=== PATIENT | male | born 1950 | race Caucasian/White ===

== ENCOUNTER 2019-07-28 09:35 | Outpatient (CLI) | payer MEDICARE, SELFPAY ==
[2019-07-28 10:00] LABS: Basophils % 0.6 %; Eosinophils # 0.1 10^3/uL (0.0-0.8); Eosinophils % 2.1 %; Hematocrit 54.9 % (42.0-52.0); Hemoglobin 17.7 g/dL (11.7-16.6); Lymphocytes # 1.5 10^3/uL (0.8-4.8); Lymphocytes % 24.3 %; Mean Corpuscular HGB Conc 32.2 g/dL (30.0-36.0); Mean Corpuscular Volume 89.9 fL (80-94); Mean Platelet Volume 9.9 fL (7.4-10.4); Monocytes # 0.4 10^3/uL (0.2-0.9); Monocytes % 6.3 %; Neutrophils # 4.1 10^3/uL (1.8-7.7); Neutrophils % 66.5 %; Nucleated Red Blood Cells % 0 %; Platelet Count 142 10^3/cmm (130-400); Red Blood Count 6.11 10^6/uL (4.1-5.3); Red Cell Distribution Width 12.4 % (12.1-15.1); White Blood Count 6.2 10^3/uL (4.0-10.0)
[2019-07-28] MEDS: sodium chloride 0.9% 250 ML 999 ML IV (12:26)
--- NOTE | 2019-07-28 13:01 | ONC CON_ITS ---
Dr. Crawford New Patient Note Patient: Landen Romero Unit #: [id number]: 1950 Dicatated By: Marco Crawford M.D.Date of Visit: Jul 28, 2019 Onc MED New Patient/Consult Referring Physician: Dr. RENATA Salter M.D. History of Present Illness: Mr. Landen Romero, is a 69-year-old gentleman with history of sleep apnea and on CPAP machine and 30+ year history of heavy smoking e.g. 2 packs per day, quit 10 years ago. Recently found to have elevated hemoglobin/hematocrit as per record received from his PMD initially CBC done on 12/23/2017 showed hemoglobin 17.2 hematocrit 51.9 with platelets 154,000 and white blood count 6.6 and the last one from 06/10/2019 showed hemoglobin 18.3 hematocrit 56.1 with white blood count 7 and platelets 162,000. Patient denies any testosterone supplements. Patient denies any shortness of breath or wheezing patient denies any headaches blurred vision double vision patient denies any itching or flushing patient denies any recent weight gain patient denies any chest pain. Patient said he used to donate blood but not in the recent past. Patient said he uses CPAP machine diligently for the last 7 -8 years and never been rechecked for setting. Past Medical History: There is no documented medical history. Past Surgical History: Mr. Romero's surgical/procedural history consists of carpal tunnel repair x5, left shoulder repair, right knee repair, and right shoulder repair. Medications: Ambien 1 Tablet (of 10 mg) Oral at bedtime Allergies: Citalopram Hydrobromide Social History: Mr. Romero is . Mr. Romero quit smoking 20 years ago but had smoked 2.0 packs/day for 33 years. He quit drinking 20 years ago. pt states he drank a quart of vodka a night. Family History: Mr. Romero's mother at age 78: pancreatic cancer. Mr. Romero's father at age 85: hypertension, and old age. Mr. Romero has 5 brothers: 4 alive, 1 . Mr. Romero's first brother's hypertension, and diabetes. Another brother's hypertension, and diabetes. He has 3 sisters: 3 alive. Review Of Symptoms: Constitutional - Appetite is good and weight has slightly decreased. No fever, chills, hot flashes, or night sweats. Energy level is fair, ENMT - No sinus congestion/drainage. No mouth sores. No sore throat or difficulty swallowing, Hematologic/Lymphatic - No abnormal bruising or bleeding, Respiratory - No shortness of breath. No cough. No pleuritic pain or hemoptysis, Cardiovascular - No angina pain. No palpitations, Gastrointestinal - No nausea or vomiting. No heartburn or acid reflux. No diarrhea or constipation. No blood in the stool or black stools, Genitourinary (M) - No dysuria or hematuria. No urinary frequency. No urgency or incontinence, Musculoskeletal - No joint or bone pain, Neurologic - No headache or dizziness. No numbness/paresthesias or other focal neurologic symptoms, Psychiatric - No anxiety or depression. No insomnia. Vital Signs: Most recent vitals are not available for this patient. Performance Status: 0 - Fully active, able to carry on all predisease activities without restrictions. (ECOG) Physical Examination: ENMT - No oral exudates, ulcers, masses, thrush or mucositis. Oropharynx clear. Tongue normal, Respiratory - poor air entry, Cardiovascular - Regular rate and rhythm of heart, Abdomen - Non-tender, non-distended, Good bowel sounds. No guarding or rebound tenderness. No pulsatile masses, Extremities - no edema. Lab/Imaging: Most recent lab results are not available for this patient. 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 Or polycythemia vera but less likely. History of sleep apnea on CPAP machine History of chronic smoking 2 packs per day for 30 years, quit 10 years ago. Plan: Discussed with patient regarding his labs from today white blood count 6.2 hemoglobin 17.7, hematocrit 54.9 normal range being 40-52 platelets 142,000 with a normal differential Clinically, patient is doing well, no obvious signs symptom due to polycythemia but patient has underlying type II diabetes and considering his age, we will consider keeping his hematocrit done on 45 to minimize any risk of CVA. In the meantime we will do following to rule out possible etiology of progressive polycythemia. We will check his pulse oximetry at rest and exertion and, erythropoietin level, chest x-ray, MARCEL 2 mutation and also suggest primary care physician to recheck CPAP machine setting to optimize sleep apnea management. The meantime we'll proceed with phlebotomy 500 mL blood replacement with 250 mL normal saline and goal is to keep hematocrit equal to or below 45. Patient was advised to maintain hydration and also take 1 aspirin a day. Return to clinic in 2 weeks with CBC Signed By: Marco Crawford M.D. <<Signature on File>>
== END 2019-07-28 09:36 | disposition home or self-care (01) ==
LOC: ONCMED 09:39
PROVIDERS: Family Provider Nurse Practitioner; PCP Nurse Practitioner; Visit Provider Internal Medicine Hematology & Oncology
DX: D75.1 Secondary polycythemia (principal); G47.33 Obstructive sleep apnea (adult) (pediatric); J98.4 Other disorders of lung; Z87.891 Personal history of nicotine dependence
CPT/HCPCS: 82668; 85025; 99195; 99204; J7050

== ENCOUNTER 2019-08-11 08:01 | Outpatient (CLI) | payer MEDICARE, SELFPAY ==
[2019-08-11 08:20] LABS: Basophils # 0.1 10^3/uL (0.0-0.1); Basophils % 0.7 %; Eosinophils # 0.1 10^3/uL (0.0-0.8); Eosinophils % 1.7 %; Hematocrit 51.5 % (42.0-52.0); Hemoglobin 16.7 g/dL (11.7-16.6); Lymphocytes # 1.9 10^3/uL (0.8-4.8); Lymphocytes % 25.2 %; Mean Corpuscular HGB Conc 32.4 g/dL (30.0-36.0); Mean Corpuscular Hemoglobin 28.9 pg (28.0-34.0); Mean Corpuscular Volume 89.3 fL (80-94); Mean Platelet Volume 9.4 fL (7.4-10.4); Monocytes # 0.6 10^3/uL (0.2-0.9); Monocytes % 7.4 %; Neutrophils % 64.6 %; Nucleated Red Blood Cells % 0 %; Platelet Count 182 10^3/cmm (130-400); Red Blood Count 5.77 10^6/uL (4.1-5.3); Red Cell Distribution Width 12.8 % (12.1-15.1); White Blood Count 7.7 10^3/uL (4.0-10.0)
--- NOTE | 2019-08-11 12:48 | ONC FU_ITS ---
Dr. Crawford follow up note Patient: Landen Romero Unit #: [id number]: 1950 Dicatated By: Marco Crawford M.D.Date of Visit:Aug 11, 2019 Onc Med Follow-up/Prog Note History of Present Illness: Mr. Landen Romero, is a 69-year-old gentleman with history of sleep apnea and on CPAP machine and 30+ year history of heavy smoking e.g. 2 packs per day, quit 10 years ago. Recently found to have elevated hemoglobin/hematocrit as per record received from his PMD initially CBC done on 12/23/2017 showed hemoglobin 17.2 hematocrit 51.9 with platelets 154,000 and white blood count 6.6 and the last one from 06/10/2019 showed hemoglobin 18.3 hematocrit 56.1 with white blood count 7 and platelets 162,000. Patient denies any testosterone supplements. Patient denies any shortness of breath or wheezing patient denies any headaches blurred vision double vision patient denies any itching or flushing patient denies any recent weight gain patient denies any chest pain. Patient said he used to donate blood but not in the recent past. JAK2 mutation was negative. Pulse ox at rest was 92% and on exertion 95%. Erythropoietin level was not done. Started on biweekly phlebotomy on 07/28/2019, goal is to keep hematocrit equal to or less than 45 Patient said he uses CPAP machine diligently for the last 7 -8 years and never been rechecked for setting. Came for follow-up, denies any specific complaints, denies any fever or chills, denies any headaches or blurred vision double vision. Patient tolerated first phlebotomy well. Medications: ALPRAZolam 1 Tablet (of 0.5 mg) Oral b.i.d., Ambien 1 Tablet (of 10 mg) Oral at bedtime, Canagliflozin 1 Tablet (of 300 mg) Oral daily, Glucophage 1 Tablet (of 850 mg) Oral b.i.d., Propranolol HCl 1 Tablet (of 40 mg) Oral daily, Sertraline HCl 1 Tablet (of 50 mg) Oral daily, Simvastatin 1 Tablet (of 40 mg) Oral daily, Tamsulosin HCl 2 Capsule (of 0.4 mg) Oral daily, traMADol HCl 1 Tablet (of 50 mg) Oral PRN Allergies: Citalopram Hydrobromide Review of Systems: Review of Systems is not available for this patient. Vital Signs: Performed on Aug 11, 2019 09:45 Height - 71.00 in Weight - 238.4 lbs (LOW) BSA - 2.27 sq.m BMI - 33.25 (HIGH) Temperature - 98.6 F Pulse - 58 /min (LOW) Respiration - 24 /min BP - 117/73 mm(hg) O2 Sat - 98 % Pain - 0 Performance Status: 0 - Fully active, able to carry on all predisease activities without restrictions. (ECOG) Physical Examination: ENMT - No oral exudates, ulcers, masses, thrush or mucositis. Oropharynx clear. Tongue normal, Respiratory - Lungs are clear to auscultation without rhonchi or wheezing, Cardiovascular - Regular rate and rhythm of heart, Abdomen - Non-tender, non-distended, Good bowel sounds. No guarding or rebound tenderness. No pulsatile masses, Extremities - no edema. 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 Or polycythemia vera but less likely.as Fabiano 2 mutation came back negative History of sleep apnea on CPAP machine History of chronic smoking 2 packs per day for 30 years, quit 10 years ago. Plan: Discussed with patient regarding his labs white blood count 7.7 hemoglobin 16.7 crit 51.5, compared to 54.9 on 07/28/2019, prior to phlebotomy, platelets 182,000 with a normal differential Clinically, patient is doing well, tolerating phlebotomies well. His hematocrit has gone down appropriately. We will continue with biweekly phlebotomy with 500 mL drawn and with 250 mL normal saline replacement to prevent hypovolemia. And goal is to keep his hemoglobin/hematocrit equal to or less than 15/45. Patient advised to continue aspirin. Lab workup done so far remained inconclusive, no evidence of polycythemia vera, as FABIANO 2 came back negative. And has history of sleep apnea for which is on CPAP machine for the last 8 years, he may have machine malfunctioning or may need resetting. Patient will discuss with PMD regarding rechecking CPAP machine settings for optimal functioning. We'll proceed with phlebotomy today and then continue biweekly while maintaining hemoglobin/hematocrit equal to or less than 15/45 He will return to clinic in 2 months with CBC. Signed By: Maroc Crawford M.D. <<Signature on File>>
== END 2019-08-11 08:02 | disposition home or self-care (01) ==
LOC: ONCMED 08:01
PROVIDERS: Family Provider Nurse Practitioner; PCP Nurse Practitioner; Visit Provider Internal Medicine Hematology & Oncology
DX: D75.1 Secondary polycythemia (principal); G47.33 Obstructive sleep apnea (adult) (pediatric); Z79.82 Long term (current) use of aspirin; Z87.891 Personal history of nicotine dependence
CPT/HCPCS: 85025; 99195; G0463

== ENCOUNTER 2019-08-25 11:51 | Outpatient (CLI) | payer MEDICARE, SELFPAY ==
[2019-08-25 12:14] LABS: Basophils # 0.1 10^3/uL (0.0-0.1); Basophils % 0.7 %; Eosinophils # 0.1 10^3/uL (0.0-0.8); Eosinophils % 1.5 %; Hematocrit 50.9 % (42.0-52.0); Hemoglobin 16.9 g/dL (11.7-16.6); Lymphocytes # 1.6 10^3/uL (0.8-4.8); Lymphocytes % 22.1 %; Mean Corpuscular HGB Conc 33.2 g/dL (30.0-36.0); Mean Corpuscular Hemoglobin 29.6 pg (28.0-34.0); Mean Corpuscular Volume 89.1 fL (80-94); Mean Platelet Volume 9.8 fL (7.4-10.4); Monocytes # 0.5 10^3/uL (0.2-0.9); Monocytes % 6.8 %; Neutrophils # 4.9 10^3/uL (1.8-7.7); Neutrophils % 68.6 %; Nucleated Red Blood Cells % 0 %; Platelet Count 156 10^3/cmm (130-400); Red Blood Count 5.71 10^6/uL (4.1-5.3); Red Cell Distribution Width 13.4 % (12.1-15.1); White Blood Count 7.1 10^3/uL (4.0-10.0)
[2019-08-25] MEDS: sodium chloride 0.9% 250 ML 999 ML IV (12:41)
== END 2019-08-25 11:52 | disposition home or self-care (01) ==
LOC: ONCMED 11:55
PROVIDERS: Family Provider Nurse Practitioner; PCP Nurse Practitioner; Visit Provider Internal Medicine Hematology & Oncology
DX: D75.1 Secondary polycythemia (principal)
CPT/HCPCS: 36415; 85025; 99195; J7050

== ENCOUNTER 2019-09-08 09:23 | Outpatient (CLI) | payer MEDICARE, SELFPAY ==
[2019-09-08 10:04] LABS: Basophils % 0.5 %; Eosinophils # 0.2 10^3/uL (0.0-0.8); Eosinophils % 2.8 %; Hematocrit 47.2 % (42.0-52.0); Hemoglobin 15.4 g/dL (11.7-16.6); Lymphocytes # 2.2 10^3/uL (0.8-4.8); Lymphocytes % 27.6 %; Mean Corpuscular HGB Conc 32.6 g/dL (30.0-36.0); Mean Corpuscular Hemoglobin 29.2 pg (28.0-34.0); Mean Corpuscular Volume 89.6 fL (80-94); Mean Platelet Volume 9.9 fL (7.4-10.4); Monocytes # 0.6 10^3/uL (0.2-0.9); Monocytes % 8.2 %; Neutrophils # 4.7 10^3/uL (1.8-7.7); Neutrophils % 60.6 %; Nucleated Red Blood Cells % 0 %; Platelet Count 171 10^3/cmm (130-400); Red Blood Count 5.27 10^6/uL (4.1-5.3); Red Cell Distribution Width 13.3 % (12.1-15.1); White Blood Count 7.8 10^3/uL (4.0-10.0)
== END 2019-09-08 09:24 | disposition home or self-care (01) ==
LOC: ONCMED 09:25
PROVIDERS: Family Provider Nurse Practitioner; PCP Nurse Practitioner; Visit Provider Internal Medicine Hematology & Oncology
DX: D75.1 Secondary polycythemia (principal)
CPT/HCPCS: 36415; 85025; 99195; 99211

== ENCOUNTER 2019-09-24 08:49 | Outpatient (CLI) | payer MEDICARE, SELFPAY ==
[2019-09-24 09:24] LABS: Basophils # 0.1 10^3/uL (0.0-0.1); Basophils % 0.9 %; Eosinophils # 0.1 10^3/uL (0.0-0.8); Eosinophils % 2.3 %; Hematocrit 46.9 % (42.0-52.0); Lymphocytes # 1.6 10^3/uL (0.8-4.8); Lymphocytes % 27.5 %; Mean Corpuscular Hemoglobin 29.5 pg (28.0-34.0); Mean Corpuscular Volume 92.3 fL (80-94); Mean Platelet Volume 9.6 fL (7.4-10.4); Monocytes # 0.5 10^3/uL (0.2-0.9); Monocytes % 8.1 %; Neutrophils # 3.5 10^3/uL (1.8-7.7); Nucleated Red Blood Cells % 0 %; Platelet Count 172 10^3/cmm (130-400); Red Blood Count 5.08 10^6/uL (4.1-5.3); Red Cell Distribution Width 13.5 % (12.1-15.1); White Blood Count 5.7 10^3/uL (4.0-10.0)
[2019-09-24] MEDS: sodium chloride 0.9% 250 ML 999 ML IV (10:01)
== END 2019-09-24 08:50 | disposition home or self-care (01) ==
LOC: ONCMED 08:51
PROVIDERS: Family Provider Nurse Practitioner; PCP Nurse Practitioner; Visit Provider Internal Medicine Hematology & Oncology
DX: D75.1 Secondary polycythemia (principal)
CPT/HCPCS: 85025; 99195; 99211; J7050

== ENCOUNTER 2019-09-28 20:00 | Outpatient (CLI) | payer MEDICARE, SELFPAY | END 2019-09-28 20:01 | disposition home or self-care (01) | LOC: SLEEP 09-29 10:48 | PROVIDERS: Family Provider Nurse Practitioner; PCP Nurse Practitioner; Visit Provider Nurse Practitioner | DX: G47.30 Sleep apnea, unspecified (principal) | CPT/HCPCS: 95810 ==

== ENCOUNTER 2019-10-06 06:55 | Outpatient (CLI) | payer MEDICARE, SELFPAY ==
[2019-10-06 12:04] LABS: Basophils # 0.1 10^3/uL (0.0-0.1); Basophils % 1.1 %; Eosinophils # 0.2 10^3/uL (0.0-0.8); Eosinophils % 3.2 %; Hematocrit 46.6 % (42.0-52.0); Hemoglobin 14.7 g/dL (11.7-16.6); Lymphocytes # 2.4 10^3/uL (0.8-4.8); Lymphocytes % 38.1 %; Mean Corpuscular HGB Conc 31.5 g/dL (30.0-36.0); Mean Corpuscular Hemoglobin 29.2 pg (28.0-34.0); Mean Corpuscular Volume 92.6 fL (80-94); Mean Platelet Volume 10.3 fL (7.4-10.4); Monocytes # 0.6 10^3/uL (0.2-0.9); Monocytes % 9.7 %; Neutrophils # 2.9 10^3/uL (1.8-7.7); Neutrophils % 47.6 %; Nucleated Red Blood Cells % 0 %; Platelet Count 158 10^3/cmm (130-400); Red Blood Count 5.03 10^6/uL (4.1-5.3); Red Cell Distribution Width 13.4 % (12.1-15.1); White Blood Count 6.2 10^3/uL (4.0-10.0)
== END 2019-10-06 06:56 | disposition home or self-care (01) ==
LOC: ONCMED 13:58
PROVIDERS: Family Provider Nurse Practitioner; PCP Nurse Practitioner; Visit Provider Internal Medicine Hematology & Oncology
DX: D75.1 Secondary polycythemia (principal)
CPT/HCPCS: 85025

== ENCOUNTER → 2019-11-01 11:15 | Outpatient (BNVA) | payer MEDICARE, SELFPAY | PROVIDERS: Family Provider Nurse Practitioner; PCP Nurse Practitioner; Visit Provider Urology | DX: N40.1 Benign prostatic hyperplasia with lower urinary tract symptoms (principal); N39.9 Disorder of urinary system, unspecified; N52.9 Male erectile dysfunction, unspecified; Z12.5 Encounter for screening for malignant neoplasm of prostate | CPT/HCPCS: 81001 ==

== ENCOUNTER 2019-11-11 14:43 | Observation (INO) | payer MEDICARE, SELFPAY ==
[2019-11-10 14:20] VITALS: BMI 32.8
[2019-11-11] VITALS (12 sets, daily range): BP systolic 106–138; BP diastolic 59–84; PULSE 55–79; RESP 15–22; TEMP 36.1–36.5; O2SAT 92–97
[2019-11-11 12:11] LABS: Glucose Point of Care 265 mg/dL (70-110)
[2019-11-11] MEDS: sodium chloride 0.9% 1,000 ML 30 ML IV (12:16)
--- NOTE | 2019-11-11 12:34 | ANES.PREANE2 ---
Pre-Anesthetic Assessment Pre-Anesthetic Assessment: Height/Weight: Height 1.8 m Weight 106.594 kg Temp Pulse Resp BP Pulse Ox 97 F L 61 18 114/80 96 11/11/19 12:10 11/11/19 12:10 11/11/19 12:10 11/11/19 12:10 11/11/19 12:10 Preop Diagnosis: Refractory BPH/obstruction Proposed Procedure: Operation Date: 11/11/19 13:00 Proposed Procedures p Transurethral Resection Of Prostate N40.1 65996(Not Applicable) - Cresencio Henson MD s Cystoscopy N39.9(Not Applicable) - Cresencio Henson MD Was Beta Kaden taken within 24 hours: Yes Last intake: Intake Last Liquid Date 11/10/19 Last Solid Date 11/10/19 Social: Social History: No alcohol and No tobacco Exam: Pre-Anes Outpt Exam: alert, oriented x 3, clear to auscultation bilaterally and regular rate & rhythm Airway: Submandibular: WNL Cervical ROM: Other (poor) MP: 2 History/ROS: No significant history except as noted Pulmonary: Pulmonary: Sleep apnea CV/HEM: CV/HEM: HTN : : Chronic renal Insufficiency Hepatic: Hepatic: None reported GI: GI: None reported Metabolic: Metabolic: DM Musc/skel: Musc/skel: OA/DJD Anesthetic Plan: ASA status: 3 Anesthesia: Anesthesia Evaluation and General Risk of > 500 ml blood loss (7ml/kg in children): Yes, adequate IV access and fluids planned Meds/Allergies Current Medications: Current Medications Generic Name Dose Route Start Last Admin Trade Name Freq PRN Reason Stop Dose Admin Sodium Chloride 1,000 mls @ 30 ml s/hr 11/11/19 12:00 11/11/19 12:16 Sodium Chloride 0.9% IV 11/12/19 11:59 30 mls/hr .Q24H MERRY Administration PFSH Anesthesia PFSH: Medical History (Updated 11/11/19 @ 12:35 by Anshul Serrano MD) BPH NOS w ur obs/LUTS Diabetes Erectile dysfunction Major depression Osteoarthritis Sleep apnea Social History Smoking and tobacco status: former smoker Alcohol intake: never Marital status: Current occupational status: retired History of recent travel: No Data Anesthesia Other Labs: Laboratory Results - last 48 hr 11/11/19 12:08 POC Glucose 265 Cardiac Studies: No Data to Display
--- NOTE | 2019-11-11 12:38 | W.PM.OPSUD ---
Surgery/Procedure H&P Update DATE OF PROCEDURE: November 11, 2019 DATE H&P PERFORMED: 11/01/19 H&P UPDATE INFORMATION: I have reviewed H&P completed within last 30 days, I have examined patient prior to procedure and No changes to prior documentation CHANGES TO PREVIOUS DOCUMENTATION: Reports no blood thinners PREOP DIAGNOSIS: Refractory BPH/obstruction PLANNED PROCEDURE: Operation Date: 11/11/19 13:00 Proposed Procedures p Transurethral Resection Of Prostate N40.1 50975(Not Applicable) - Cresencio Henson MD s Cystoscopy N39.9(Not Applicable) - Cresencio Henson MD
--- NOTE | 2019-11-11 12:42 | PM.OP ---
Operative Report Date of procedure: November 11, 2019 Pre-op Diagnosis: Refractory BPH/obstruction Post-op diagnosis: same Procedure Done: Transurethral resection/vaporization of the prostateCystoscopy, Pathology: Prostate chips Surgeon: suzan Anesthesia: General Complications: None Findings: Trilobar enlargement of the prostate. Wide open prostatic fossa at the completion of the resection. Condition: stable Disposition: PACU Brief History: Landen is a 69-year-old white male with progressive bladder outlet obstructive symptoms secondary to BPH/obstruction initially had good response to dual medical therapy but over time symptoms progressed. Bladder on cystoscopy showed severe obstructive changes including trabeculation and cellule formation. Prostate demonstrated trilobar enlargement of the prostate. Because of his progressive symptoms he has elected to proceed with TURP/TUVP in hopes of significant improvement in baseline voiding. Procedure: After routine preoperative evaluation examination and obtaining of informed consent he was taken to the operating suite on 11/11/2019 where general anesthesia was administered without difficulty after appropriate timeout was performed, SCDs confirmed to be functioning, preoperative antibiotics administered, beta-alton protocol confirmed. on prepped and draped in the usual sterile fashion in dorsolithotomy position paying careful attention to avoiding pressure points. 21 Colombian cystoscope with 30 degree lens was introduced into the urethral meatus and advanced into the bladder under videoscopy. Bladder was systematically examined with findings as above. No other significant pathology identified. The urethra was calibrated with Vani sounds and easily accommodated 30 Colombian. 2% lidocaine jelly was instilled into the urethra then a well-lubricated 25 Colombian continuous flow resectoscope sheath with visual obturator was advanced into the bladder under videoscopy. The gyrus bipolar system with supersect and button probes were utilized initially with the supersect to trim the median lobe down to the circular fibers of the bladder neck. Resection was then directed to the Left lateral lobe from the 12 o'clock position to the 5 o'clock position from the bladder neck out to but not distal to the verumontanum. Similar resection on the right prostatic lobe. The remaining tissue on the floor the prostate was then carefully resected. Combination of resection and vaporization was conducted throughout this utilizing both the supersect and the button probe as indicated. There remained a small amount of tissue at the apex of the prostate was carefully trimmed away paying careful attention to avoiding resection distal to the verumontanum. The right ureteral orifices were confirmed to be away from the resection site throughout the procedure. All chips were evacuated from the bladder with an [employer] evacuator. Sculpting was then conducted on the prostatic fossa to complete hemostasis as well as functional opening. At the completion of the resection the chips were confirmed to be out of the bladder, hemostasis was visually confirmed, and tissue distal to the verumontanum as well as the ureteral orifices were undisturbed. Bladder drained with a 22 Colombian three-way Bella catheter with 30 cc placed in the balloon and a light continuous bladder irrigation was initiated. Efflux remained clear. Awakened in the operating room and returned to the recovery room in stable condition.
[2019-11-11 12:55] LABS: Basophils # 0.1 10^3/uL (0.0-0.1); Basophils % 0.8 %; Eosinophils # 0.1 10^3/uL (0.0-0.8); Eosinophils % 2.4 %; Hematocrit 53.4 % (42.0-52.0); Lymphocytes # 1.8 10^3/uL (0.8-4.8); Mean Corpuscular HGB Conc 31.8 g/dL (30.0-36.0); Mean Corpuscular Hemoglobin 28.2 pg (28.0-34.0); Mean Corpuscular Volume 88.6 fL (80-94); Mean Platelet Volume 10.1 fL (7.4-10.4); Monocytes # 0.5 10^3/uL (0.2-0.9); Monocytes % 8.8 %; Neutrophils # 3.4 10^3/uL (1.8-7.7); Neutrophils % 57.8 %; Nucleated Red Blood Cells % 0 %; Platelet Count 168 10^3/cmm (130-400); Red Blood Count 6.03 10^6/uL (4.1-5.3); Red Cell Distribution Width 13.1 % (12.1-15.1); White Blood Count 5.9 10^3/uL (4.0-10.0)
[2019-11-11] MEDS: levofloxacin-dextrose 5 % 500 MG/100 ML PREMIX 100 MG IV (13:05)
[2019-11-11] MEDS: lidocaine 2% Urojet 20 mL TOPICAL (13:07)
[2019-11-11 13:15] LABS: Alanine Aminotransferase 15 U/L (0-41); Albumin Level 4.5 g/dL (3.5-5.2); Alkaline Phosphatase 80 IU/L (40-130); Anion Gap 19.7 (5-19); Aspartate Amino Transferase 15 U/L (0-40); Blood Urea Nitrogen 28 mg/dL (8-23); Calcium 9.3 mg/dL (8.5-10.5); Carbon Dioxide 20 mmol/L (22-29); Chloride 101 mmol/L (98-107); Globulin 3.6 g/dL (1.3-4.6); Glomerular Filtration Rate 46.3 mL/min (90-130); Glucose 276 mg/dL (65-115); Osmolality Calculated 289 mOsm/kg (285-295); Potassium 4.7 mmol/L (3.5-5.1); Sodium 136 mmol/L (136-145); Total Bilirubin 0.5 mg/dL (0.15-1.2); Total Protein 8.1 g/dL (6.6-8.7)
[2019-11-11] MEDS: sodium chlor 0.45% +KCl 20 mEq 20 MEQ/1,000 ML BAG 75 MEQ IV (16:00)
[2019-11-11 17:06] LABS: Glucose Point of Care 206 mg/dL (70-110)
[2019-11-11] MEDS: metformin 850 mg Tablet PO (17:26)
--- NOTE | 2019-11-11 18:23 | PC.NURSE ---
CBI running with a barely drip. Urine pink with very small clots. 1200 intake with 150 output in urine.
--- NOTE | 2019-11-11 20:09 | PC.NURSE ---
1300 output from cbi- clear pink turned up slightly and turned clear.
[2019-11-11 20:57] LABS: Glucose Point of Care 302 mg/dL (70-110)
--- NOTE | 2019-11-11 21:01 | PC.NURSE ---
hung 2 new bags of cbi slowed rate running slow clear light yellow output
[2019-11-11] MEDS: ALPRAZolam 0.5 mg Tablet PO (22:18)
--- NOTE | 2019-11-11 22:22 | PC.NURSE ---
salomon emptied with light pink output
[2019-11-12] VITALS (7 sets, daily range): BP systolic 105–124; BP diastolic 58–73; PULSE 63–70; RESP 18–20; TEMP 36.6–37.1; O2SAT 92–97
--- NOTE | 2019-11-12 01:28 | PC.NURSE ---
salomon emptied with 900 ml light pink output no clots
[2019-11-12 02:21] LABS: Basophils # 0.1 10^3/uL (0.0-0.1); Basophils % 0.6 %; Eosinophils # 0.2 10^3/uL (0.0-0.8); Eosinophils % 2.1 %; Hemoglobin 13.7 g/dL (11.7-16.6); Lymphocytes # 2.2 10^3/uL (0.8-4.8); Lymphocytes % 26.6 %; Mean Corpuscular HGB Conc 31.1 g/dL (30.0-36.0); Mean Corpuscular Volume 89.8 fL (80-94); Mean Platelet Volume 10.1 fL (7.4-10.4); Monocytes # 0.7 10^3/uL (0.2-0.9); Monocytes % 8.7 %; Neutrophils # 5.1 10^3/uL (1.8-7.7); Neutrophils % 61.8 %; Nucleated Red Blood Cells % 0 %; Platelet Count 137 10^3/cmm (130-400); Red Cell Distribution Width 13.1 % (12.1-15.1); White Blood Count 8.2 10^3/uL (4.0-10.0)
[2019-11-12 02:30] LABS: Blood Urea Nitrogen 25 mg/dL (8-23); Carbon Dioxide 22 mmol/L (22-29); Chloride 104 mmol/L (98-107); Glomerular Filtration Rate 42.9 mL/min (90-130); Glucose 151 mg/dL (65-115); Osmolality Calculated 284 mOsm/kg (285-295); Sodium 137 mmol/L (136-145)
[2019-11-12] MEDS: sodium chlor 0.45% +KCl 20 mEq 20 MEQ/1,000 ML BAG 75 MEQ IV (05:01)
[2019-11-12 06:51] LABS: Glucose Point of Care 187 mg/dL (70-110)
[2019-11-12] MEDS: sertraline 50 mg Tablet PO (08:11)
[2019-11-12] MEDS: finasteride 5 mg Tablet PO (08:11)
[2019-11-12] MEDS: tamsulosin 0.4 mg Capsule PO (08:11)
[2019-11-12] MEDS: metformin 850 mg Tablet PO (08:11)
[2019-11-12] MEDS: propranolol 40 mg Tablet PO (08:11)
[2019-11-12] MEDS: cetirizine 10 mg Tablet PO (08:11)
[2019-11-12] MEDS: losartan 50 mg Tablet 25 MG PO (08:11)
[2019-11-12] MEDS: atorvastatin 40 mg Tablet 20 MG PO (08:11)
--- NOTE | 2019-11-12 08:21 | PC.NURSE ---
salomon catheter discontinued, patient educated on 6 bottle void and to let nurse know after he has voided.
--- NOTE | 2019-11-12 10:11 | PC.CHAP ---
Pastoral Care Encounter/Spiritual Assessment Type of Contact [] Declined director of student life visit [] Patient/Family/Request visit [] Outpatient visit [] Follow-up visit [] Physician referral [] Code/Alert [x] Routine visit [] Staff referral [] Actively dying [] Patient sleeping [] Family support [] [] Out of room [] Palliative care [] [] Receiving care in room [] Pre-surgical visit [] Trauma [] Long length of stay [] ICU visit [] Other: Relational/Emotional Strength [] Patient feels connected with others/family/visitors/staff [] Distress [] Loneliness/isolation [] Abandonment Spirituality of Patient [] Person of Dyan [] Attends Scientologist of their Dyan [] Believes in Prayer [] Reads Bible or Tenriism materials [] There are Spiritual issues to be addressed Wood Lathe Operator Interventions [x] Prayer [] Active listening [] Non-anxious presence [] Spiritual/emotional support [] Crisis/trauma care [] Spiritual counseling [] Bereavement support [] Provided bereavement packet [] Provided Bible/devotional materials [] Provided toy/stuffed animal, coloring book to patient or family member [] Provided Communion [] Anointing/Hilbert [] Salvation [x] Completed spiritual assessment [] Other: Impact on Illness or Injury [] Angry [] Fearful [] Anxious [] Often cries [] Exhaustion [] Unable to work [] Unable to attend restorationist [] Unable to walk/stand [] Unable to read [] Unable to drive [] Unable to eat/drink [] Unable to sleep [] Unable to be with family [] Patient intubated [] Other: Summary Patient resting well. No needs at this point. Time spent with patient 5 min
[2019-11-12 10:59] LABS: Glucose Point of Care 318 mg/dL (70-110)
--- NOTE | 2019-11-12 11:02 | PC.NURSE ---
Salomon discontinued per dr Henson's order, pt tolerated well. pt has voided 3 times after salomon removal, around 200mL each time. PVR showed 590 in bladder, however there had been some concern whether the bladder scanner had been working appropriately. Patient does not feel pressure or does not feel like he needs to void, his bladder does not feel distended. Dr. Henson notified of concerns, no new orders at this time.
--- NOTE | 2019-11-12 12:49 | PC.NURSE ---
patient completed 6 bottle void, urine started out dark alec, cleared up to clear yellow. patient voiding around 300mL each time. states that he feels well. Dr. Henson notified of patient status.
--- NOTE | 2019-11-12 13:58 | P.DS_ITS ---
Discharge Providers Date of Admission: 11/11/19 14:43 Date of Discharge: November 12, 2019 Attending Provider at Admission: Cresencio Henson MD Attending Provider at Discharge: Cresencio Henson MD Primary Care Provider: Aylin Burns APN Diagnoses at Discharge Discharge Diagnosis (1) BPH NOS w ur obs/LUTS: Status: Acute Reason for Visit Reason for Visit: Reason For Visit: PROSTATE Hospital Course Hospital Course: He was admitted on the day of the procedure which went well. At the completion of the procedure his prostatic fossa was wide open. Hemostasis was great. Maintained on Bella catheter until postoperative day #1. Urine remained clear i n the Bella catheter was removed with spontaneous voiding and clearing of urine. His last void was >350 cc and he felt empty. Discharge on the afternoon of postoperative day 1 in stable condition. Physical Exam Const: COMMON NORMALS: no apparent distress, alert and well nourished GENERAL APPEARANCE: well kempt and well developed ORIENTATION/CONSCIOUSNESS: not confused Resp: COMMON NORMALS: normal respiratory effort EFFORT & INSPECTION: No labored and No actively coughing Neuro: COMMON NORMALS: no focal motor deficits SENSORIUM/ORIENTATION: Yes alert Psych: COMMON NORMALS: mental status grossly normal APPEARANCE: Yes grossly normal and Yes well kempt ATTITUDE: Yes calm and Yes engaged Urinary Catheter Management^: 3-way Urethral CBI: Cath Placed During This Visit: yes, but has since been removed by the nurse Reason for Continuing Indwelling Catheter: Perioperative Use in Selected Surgeries Urinary Catheter Date of Insertion: 11/11/19 Urinary Catheter Time of Insertion: 14:16 Date Urinary Catheter Removed: 11/12/19 Time Urinary Catheter Discontinued: 08:15 Discharge Data Data Completed and Pending: Pending at discharge Category Date Time Status Pathology: Surgic al [PTH] Routine Pth 11/11/19 14:25 Received Labs from last 24 hours 11/12/19 11/12/19 11/12/19 10:38 06:37 02:01 WBC RBC Hgb Hct MCV MCH MCHC RDW Plt Count MPV Neut % (Auto) Lymph % (Auto) [facility] % (Auto) Eos % (Auto) Baso % (Auto) Neut # (Auto) Lymph # (Auto) [facility] # (Auto) Eos # (Auto) Baso # (Auto) Nucleated RBC % (a uto) Nucleated RBCs # Sodium 137 Potassium 4.0 Chloride 104 Carbon Dioxide 22 Anion Gap 15.0 BUN 25 H Creatinine 1.6 H GFR Calculation 42.9 L Glucose 151 H POC Glucose 318 187 Calculated Osmolal ity 284 L Calcium 8.0 L 11/12/19 11/11/19 11/11/19 02:01 20:51 16:55 WBC 8.2 RBC 4.90 Hgb 13.7 Hct 44.0 MCV 89.8 MCH 28.0 MCHC 31.1 RDW 13.1 Plt Count 137 MPV 10.1 Neut % (Auto) 61.8 Lymph % (Auto) 26.6 [facility] % (Auto) 8.7 Eos % (Auto) 2.1 Baso % (Auto) 0.6 Neut # (Auto) 5.1 Lymph # (Auto) 2.2 [facility] # (Auto) 0.7 Eos # (Auto) 0.2 Baso # (Auto) 0.1 Nucleated RBC % (a uto) 0 Nucleated RBCs # 0.0 Sodium Potassium Chloride Carbon Dioxide Anion Gap BUN Creatinine GFR Calculation Glucose POC Glucose 302 206 Calculated Osmolal ity Calcium Vitals: Last Vital Signs Temp 97.9 F 11/12/19 11:13 Pulse 68 11/12/19 11:13 Resp 18 11/12/19 11:13 BP 105/63 11/12/19 11:13 Pulse Ox 93 11/12/19 11:13 Discharge Plan Discharge Patient Disposition: Home, Self-Care Condition: Stable Prescriptions: Continued atorvastatin [Lipitor] 10 mg tablet 10 mg PO DAILY RF: 0 metformin 850 mg tablet 850 mg PO BID RF: 0 valsartan 80 mg tablet 80 mg PO DAILY RF: 0 tramadol 50 mg tablet 50 mg PO BID PRN (Reason: Anxiety) RF: 0 alprazolam 0.5 mg tablet 0.5 mg PO .prn RF: 0 propranolol 40 mg tablet 40 mg PO DAILY RF: 0 tamsulosin 0.4 mg capsule 0.4 mg PO DAILY RF: 0 zolpidem 10 mg tablet 10 mg PO .prn RF: 0 sertraline 50 mg tablet 50 mg PO DAILY RF: 0 finasteride 5 mg tablet 5 mg PO DAILY RF: 0 cetirizine 10 mg capsule 10 mg PO .prn RF: 0 Invokana 300 mg tablet 300 mg PO DAILY RF: 0 Held aspirin 325 mg tablet 325 mg PO DAILY RF: 0 Hold Instructions: Resume on 11/19/19. Discharge Orders: Discharge Order (Routine); Ordered 11/12/19 Ordered By: Cresencio Henson Referrals: Cresencio Henson MD [Physician] - 1 month (pvr, aua) Discharge Diet: Usual diet Discharge Activity: Limit activity as instructed Activity Restrictions/Additional Instructions: 1. Avoid lifting >10 pounds for 2 to 3 weeks. 2. Call for difficulty voiding 3. It is normal to see blood in your urine off and on for several weeks. That may clear for a while and then start up. Drink a lot of fluid if you see that. 4. We will follow-up in about a month for pathology report check. Discharge Attestations Time Spent in Discharge Care*: less than 30 min Quality Metrics Clinical Quality Measures During this hospital stay, did patient experience: None Coding Level of Care Code Acute Cyber Workforce Developer And Manager for g Fwd Exam Expanded Problem Focused Diagnoses BPH NOS w ur obs/LUTS N40.1
== END 2019-11-12 15:19 | disposition home or self-care (01) ==
LOC: MEDSURG 14:43
PROVIDERS: Admitting Provider Urology; PCP Nurse Practitioner; Visit Provider Urology
PROC: 0VT08ZZ Resection of Prostate, Via Natural or Artificial Opening Endoscopic (ICD-10-PCS; CPT 52601; principal; 2019-11-11 13:00)
PROC: 0TJB8ZZ Inspection of Bladder, Via Natural or Artificial Opening Endoscopic (ICD-10-PCS; CPT 52000; 2019-11-11 13:00)
DX: N40.1 Benign prostatic hyperplasia with lower urinary tract symptoms (principal); N13.8 Other obstructive and reflux uropathy; G47.30 Sleep apnea, unspecified; I10 Essential (primary) hypertension; E11.9 Type 2 diabetes mellitus without complications; M19.90 Unspecified osteoarthritis, unspecified site; Z87.891 Personal history of nicotine dependence
CPT/HCPCS: 52601; 12345; 36415; 36416; 80048; 80053; 82962; 85025; 88305; 96361; 96365; G0378; J1885; J1956; J2001; J2405; J2704; J2710; J3010; J3490; J7030

== ENCOUNTER → 2019-12-13 08:19 | Outpatient (BNVA) | payer MEDICARE, SELFPAY | PROVIDERS: PCP Nurse Practitioner; Visit Provider Urology | DX: N40.1 Benign prostatic hyperplasia with lower urinary tract symptoms (principal); N52.1 Erectile dysfunction due to diseases classified elsewhere | CPT/HCPCS: 81001 ==

== ENCOUNTER 2019-12-23 11:04 | Outpatient (CLI) | payer MEDICARE, SELFPAY ==
[2019-12-23 11:27] LABS: Basophils # 0.1 10^3/uL (0.0-0.1); Basophils % 1.2 %; Eosinophils # 0.2 10^3/uL (0.0-0.8); Eosinophils % 3.3 %; Hematocrit 53.1 % (42.0-52.0); Hemoglobin 16.8 g/dL (11.7-16.6); Lymphocytes # 1.6 10^3/uL (0.8-4.8); Lymphocytes % 25.3 %; Mean Corpuscular HGB Conc 31.6 g/dL (30.0-36.0); Mean Corpuscular Volume 88.5 fL (80-94); Mean Platelet Volume 9.4 fL (7.4-10.4); Monocytes # 0.4 10^3/uL (0.2-0.9); Monocytes % 6.4 %; Neutrophils # 4.1 10^3/uL (1.8-7.7); Neutrophils % 63.5 %; Nucleated Red Blood Cells % 0 %; Platelet Count 154 10^3/cmm (130-400); Red Cell Distribution Width 14.4 % (12.1-15.1); White Blood Count 6.4 10^3/uL (4.0-10.0)
[2019-12-23] MEDS: sodium chloride 0.9% 250 ML IV (13:25)
--- NOTE | 2019-12-23 14:29 | ONC FU_ITS ---
Dr. Crawford follow up note Patient: Landen Romero Unit #: [id number]: 1950 Dicatated By: Marco Crawford M.D.Date of Visit:Dec 23, 2019 Onc Med Follow-up/Prog Note History of Present Illness: Mr. Landen Romero, is a 69-year-old gentleman with history of sleep apnea and on CPAP machine and 30+ year history of heavy smoking e.g. 2 packs per day, quit 10 years ago. Recently found to have elevated hemoglobin/hematocrit as per record received from his PMD initially CBC done on 12/23/2017 showed hemoglobin 17.2 hematocrit 51.9 with platelets 154,000 and white blood count 6.6 and the last one from 06/10/2019 showed hemoglobin 18.3 hematocrit 56.1 with white blood count 7 and platelets 162,000. Patient denies any testosterone supplements. Patient denies any shortness of breath or wheezing patient denies any headaches blurred vision double vision patient denies any itching or flushing patient denies any recent weight gain patient denies any chest pain. Patient said he used to donate blood but not in the recent past. JAK2 mutation was negative. Pulse ox at rest was 92% and on exertion 95%. Erythropoietin level was not done. Started on biweekly phlebotomy on 07/28/2019, goal is to keep hematocrit equal to or less than 45 Patient said he uses CPAP machine diligently for the last 7 -8 years and never been rechecked for setting. Came for follow-up, denies any specific complaints, no headaches no blurring or double vision, no nausea or vomiting, no fever or chills, patient lost follow-up initially due to coronavirus and then 'just happened' Medications: ALPRAZolam 1 Tablet (of 0.5 mg) Oral b.i.d., Ambien 1 Tablet (of 10 mg) Oral at bedtime, Canagliflozin 1 Tablet (of 300 mg) Oral daily, glipiZIDE 1 Tablet (of 5 mg) Oral daily, Glucophage 1 Tablet (of 850 mg) Oral b.i.d., Propranolol HCl 1 Tablet (of 40 mg) Oral daily, Sertraline HCl 1 Tablet (of 50 mg) Oral daily, Simvastatin 1 Tablet (of 40 mg) Oral daily, traMADol HCl 1 Tablet (of 50 mg) Oral PRN Allergies: Citalopram Hydrobromide Review of Systems: Review of Systems is not available for this patient. Vital Signs: Performed on Dec 23, 2019 12:42 Height - 71.00 in Weight - 239.4 lbs (HIGH) BSA - 2.28 sq.m BMI - 33.39 (HIGH) Temperature - 96.3 F (LOW) Pulse - 63 /min Respiration - 24 /min BP - 119/63 mm(hg) O2 Sat - 98 % Pain - 0 Performance Status: 0 - Fully active, able to carry on all predisease activities without restrictions. (ECOG) Physical Examination: ENMT - No mouth sores, no thrush, no jaundice, Respiratory - Lungs are clear, Cardiovascular - Regular rate and rhythm of heart, Abdomen - Soft, bowel sounds present, Extremities - No visible edema or rash. 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 Or polycythemia vera but less likely.as Fabiano 2 mutation came back negative History of sleep apnea on CPAP machine History of chronic smoking 2 packs per day for 30 years, quit 10 years ago. Plan: Discussed with patient regarding his labs white blood count 6.4 hemoglobin 16.8 crit 53.1 platelets 154,000 Clinically, patient is doing reasonably well but now with progressive polycythemia, earlier, patient tolerated phlebotomies well with good results but due to coronavirus, he lost follow-up until came to clinic today. At this point we will proceed with phlebotomy with a 500 cc blood and replacement with a 250 cc normal saline and then continue every 2 weeks until hematocrit is less than 45. Patient was also advised to continue with baby aspirin and maintain good hydration Return to clinic in 1 month with CBC Signed By: Marco Crawford M.D. <<Signature on File>>
== END 2019-12-23 11:05 | disposition home or self-care (01) ==
LOC: ONCMED 11:05
PROVIDERS: PCP Nurse Practitioner; Visit Provider Internal Medicine Hematology & Oncology
DX: D75.1 Secondary polycythemia (principal); G47.33 Obstructive sleep apnea (adult) (pediatric); Z87.891 Personal history of nicotine dependence; Z79.82 Long term (current) use of aspirin
CPT/HCPCS: 85025; 99195; 99214; J7050

== ENCOUNTER 2020-01-20 08:41 | Outpatient (CLI) | payer MEDICARE, SELFPAY ==
[2020-01-20 09:03] LABS: Basophils # 0.1 10^3/uL (0.0-0.1); Basophils % 0.5 %; Eosinophils # 0.4 10^3/uL (0.0-0.8); Eosinophils % 3.9 %; Hemoglobin 15.8 g/dL (11.7-16.6); Lymphocytes # 2.3 10^3/uL (0.8-4.8); Lymphocytes % 25.2 %; Mean Corpuscular HGB Conc 31.6 g/dL (30.0-36.0); Mean Corpuscular Hemoglobin 28.4 pg (28.0-34.0); Mean Corpuscular Volume 89.9 fL (80-94); Mean Platelet Volume 9.9 fL (7.4-10.4); Monocytes # 0.7 10^3/uL (0.2-0.9); Monocytes % 7.3 %; Neutrophils # 5.73 10^3/uL (1.8-7.7); Neutrophils % 62.7 %; Nucleated Red Blood Cells % 0 %; Platelet Count 166 10^3/cmm (130-400); Red Blood Count 5.56 10^6/uL (4.1-5.3); Red Cell Distribution Width 15.5 % (12.1-15.1); White Blood Count 9.2 10^3/uL (4.0-10.0)
--- NOTE | 2020-01-20 10:51 | ONC FU_ITS ---
Dr. Crawford follow up note Patient: Landen Romero Unit #: [id number]: 1950 Dicatated By: Marco Crawford M.D.Date of Visit:Jan 20, 2020 Onc Med Follow-up/Prog Note History of Present Illness: Mr. Landen Romero, is a 69-year-old gentleman with history of sleep apnea and on CPAP machine and 30+ year history of heavy smoking e.g. 2 packs per day, quit 10 years ago. Recently found to have elevated hemoglobin/hematocrit as per record received from his PMD initially CBC done on 12/23/2017 showed hemoglobin 17.2 hematocrit 51.9 with platelets 154,000 and white blood count 6.6 and the last one from 06/10/2019 showed hemoglobin 18.3 hematocrit 56.1 with white blood count 7 and platelets 162,000. Patient denies any testosterone supplements. Patient denies any shortness of breath or wheezing patient denies any headaches blurred vision double vision patient denies any itching or flushing patient denies any recent weight gain patient denies any chest pain. Patient said he used to donate blood but not in the recent past. JAK2 mutation was negative. Pulse ox at rest was 92% and on exertion 95%. Erythropoietin level was not done. Started on biweekly phlebotomy on 07/28/2019, goal is to keep hematocrit between 50-55 as long as not symptomatic Patient said he uses CPAP machine diligently for the last 7 -8 years and never been rechecked for setting. Came for follow-up, denies any specific complaints, no fever chills, no nausea or vomiting no diarrhea constipation no headaches no blurred vision or double vision no chest pain no chest tightness Medications: ALPRAZolam 1 Tablet (of 0.5 mg) Oral b.i.d., Ambien 1 Tablet (of 10 mg) Oral at bedtime, Canagliflozin 1 Tablet (of 300 mg) Oral daily, glipiZIDE 1 Tablet (of 5 mg) Oral daily, Glucophage 1 Tablet (of 850 mg) Oral b.i.d., Propranolol HCl 1 Tablet (of 40 mg) Oral daily, Sertraline HCl 1 Tablet (of 50 mg) Oral daily, Simvastatin 1 Tablet (of 40 mg) Oral daily, traMADol HCl 1 Tablet (of 50 mg) Oral PRN Allergies: Citalopram Hydrobromide Review of Systems: Constitutional - Appetite is good and weight is stable. No fever, chills, hot flashes, or night sweats. Energy level is fair, ENMT - No sinus congestion/drainage. No mouth sores. No sore throat or difficulty swallowing, Hematologic/Lymphatic - No abnormal bruising or bleeding, Respiratory - No shortness of breath. No cough. No pleuritic pain or hemoptysis, Cardiovascular - No angina pain. No palpitations, Gastrointestinal - No nausea or vomiting. No heartburn or acid reflux. No diarrhea or constipation. No blood in the stool or black stools, Genitourinary (M) - No dysuria or hematuria. No urinary frequency. No urgency or incontinence, Musculoskeletal - No joint or bone pain, Neurologic - No headache or dizziness. No numbness/paresthesias or other focal neurologic symptoms, Psychiatric - No anxiety or depression. No insomnia. Vital Signs: Performed on Jan 20, 2020 10:21 Height - 71.00 in Weight - 245.2 lbs (HIGH) BSA - 2.30 sq.m BMI - 34.20 (HIGH) Temperature - 97.9 F (LOW) Pulse - 62 /min Respiration - 20 /min BP - 90/57 mm(hg) O2 Sat - 95 % (LOW) Pain - 0 Performance Status: 0 - Fully active, able to carry on all predisease activities without restrictions. (ECOG) Physical Examination: ENMT - No mouth sores,, Respiratory - Lungs are clear, Cardiovascular - Regular rate and rhythm of heart, Abdomen - Soft, bowel sounds present, Extremities - No visible edema. 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 Or polycythemia vera but less likely.as Fabiano 2 mutation came back negative History of sleep apnea on CPAP machine History of chronic smoking 2 packs per day for 30 years, quit 10 years ago. Plan: Discussed with patient regarding his labs white blood count 9.2 hemoglobin 15.8 crit 50 platelets 166,000 Clinically, patient is doing well with no new signs symptom, tolerating phlebotomy well, his hematocrits is around 50, guidelines regarding reactive polycythemia management were discussed again as patient has no signs symptom, we will keep hematocrit between 50-55 as long as he is not symptomatic in the meantime he will continue with aspirin and maintain good hydration. Turn to clinic in 1 month with CBC Signed By: Marco Crawford M.D. <<Signature on File>>
== END 2020-01-20 08:42 | disposition home or self-care (01) ==
LOC: ONCMED 08:41
PROVIDERS: PCP Nurse Practitioner; Visit Provider Internal Medicine Hematology & Oncology
DX: D75.1 Secondary polycythemia (principal); G47.33 Obstructive sleep apnea (adult) (pediatric); Z87.891 Personal history of nicotine dependence
CPT/HCPCS: 36415; 85025; G0463

== ENCOUNTER 2020-02-03 08:22 | Outpatient (CLI) | payer MEDICARE, SELFPAY ==
[2020-02-03 09:06] LABS: Basophils # 0.1 10^3/uL (0.0-0.1); Basophils % 0.7 %; Eosinophils # 0.3 10^3/uL (0.0-0.8); Hematocrit 52.5 % (42.0-52.0); Hemoglobin 16.5 g/dL (11.7-16.6); Lymphocytes # 1.9 10^3/uL (0.8-4.8); Lymphocytes % 21.2 %; Mean Corpuscular HGB Conc 31.4 g/dL (30.0-36.0); Mean Corpuscular Hemoglobin 27.9 pg (28.0-34.0); Mean Corpuscular Volume 88.8 fL (80-94); Monocytes # 0.8 10^3/uL (0.2-0.9); Monocytes % 9.3 %; Neutrophils # 5.81 10^3/uL (1.8-7.7); Neutrophils % 65.6 %; Nucleated Red Blood Cells % 0 %; Platelet Count 163 10^3/cmm (130-400); Red Blood Count 5.91 10^6/uL (4.1-5.3); Red Cell Distribution Width 15.3 % (12.1-15.1); White Blood Count 8.9 10^3/uL (4.0-10.0)
== END 2020-02-03 08:23 | disposition home or self-care (01) ==
LOC: ONCMED 08:26
PROVIDERS: PCP Nurse Practitioner; Visit Provider Internal Medicine Hematology & Oncology
DX: D45 Polycythemia vera (principal); E11.9 Type 2 diabetes mellitus without complications
CPT/HCPCS: 85025; 99195

== ENCOUNTER 2020-02-17 08:26 | Outpatient (CLI) | payer MEDICARE, SELFPAY ==
[2020-02-17 09:07] LABS: Basophils # 0.1 10^3/uL (0.0-0.1); Eosinophils # 0.3 10^3/uL (0.0-0.8); Eosinophils % 3.9 %; Hematocrit 47.7 % (42.0-52.0); Hemoglobin 14.8 g/dL (11.7-16.6); Lymphocytes % 27.7 %; Mean Corpuscular Hemoglobin 27.8 pg (28.0-34.0); Mean Corpuscular Volume 89.7 fL (80-94); Mean Platelet Volume 9.9 fL (7.4-10.4); Monocytes # 0.5 10^3/uL (0.2-0.9); Neutrophils # 4.36 10^3/uL (1.8-7.7); Nucleated Red Blood Cells % 0 %; Platelet Count 182 10^3/cmm (130-400); Red Blood Count 5.32 10^6/uL (4.1-5.3); Red Cell Distribution Width 14.9 % (12.1-15.1); White Blood Count 7.3 10^3/uL (4.0-10.0)
--- NOTE | 2020-02-17 11:30 | ONC FU_ITS ---
Dr. Crawford follow up note Patient: Landen Romero Unit #: [id number]: 1950 Dicatated By: Marco Crawford M.D.Date of Visit:Feb 17, 2020 Onc Med Follow-up/Prog Note History of Present Illness: Mr. Landen Romero, is a 70-year-old gentleman with history of sleep apnea and on CPAP machine and 30+ year history of heavy smoking e.g. 2 packs per day, quit 10 years ago. Recently found to have elevated hemoglobin/hematocrit as per record received from his PMD initially CBC done on 12/23/2017 showed hemoglobin 17.2 hematocrit 51.9 with platelets 154,000 and white blood count 6.6 and the last one from 06/10/2019 showed hemoglobin 18.3 hematocrit 56.1 with white blood count 7 and platelets 162,000. Patient denies any testosterone supplements. Patient denies any shortness of breath or wheezing patient denies any headaches blurred vision double vision patient denies any itching or flushing patient denies any recent weight gain patient denies any chest pain. Patient said he used to donate blood but not in the recent past. JAK2 mutation was negative. Pulse ox at rest was 92% and on exertion 95%. Erythropoietin level was not done. Started on biweekly phlebotomy on 07/28/2019, goal is to keep hematocrit between 50-55 as long as not symptomatic Patient said he uses CPAP machine diligently for the last 7 -8 years Came for follow-up, denies any specific complaints, no fever chills, no headaches no blurred vision no double vision, no chest pain or shortness of breath or heaviness, no nausea or vomiting. Patient said he is getting his CPAP machine settings rechecked Medications: ALPRAZolam 1 Tablet (of 0.5 mg) Oral b.i.d., Ambien 1 Tablet (of 10 mg) Oral at bedtime, Canagliflozin 1 Tablet (of 300 mg) Oral daily, glipiZIDE 1 Tablet (of 5 mg) Oral daily, Glucophage 1 Tablet (of 850 mg) Oral b.i.d., Propranolol HCl 1 Tablet (of 40 mg) Oral daily, Sertraline HCl 1 Tablet (of 50 mg) Oral daily, Simvastatin 1 Tablet (of 40 mg) Oral daily, traMADol HCl 1 Tablet (of 50 mg) Oral PRN Allergies: Citalopram Hydrobromide Review of Systems: Constitutional - Appetite is good and weight is stable. No fever, chills, hot flashes, or night sweats. Energy level is fair, ENMT - No sinus congestion/drainage. No mouth sores. No sore throat or difficulty swallowing, Hematologic/Lymphatic - No abnormal bruising or bleeding, Respiratory - No shortness of breath. No cough. No pleuritic pain or hemoptysis, Cardiovascular - No angina pain. No palpitations, Gastrointestinal - No nausea or vomiting. No heartburn or acid reflux. No diarrhea or constipation. No blood in the stool or black stools, Genitourinary (M) - No dysuria or hematuria. No urinary frequency. No urgency or incontinence, Musculoskeletal - No joint or bone pain, Neurologic - No headache or dizziness. No numbness/paresthesias or other focal neurologic symptoms, Psychiatric - No anxiety or depression. No insomnia. Vital Signs: Performed on Feb 17, 2020 10:02 Height - 71.00 in Weight - 244.6 lbs (LOW) BSA - 2.30 sq.m BMI - 34.12 (HIGH) Temperature - 95.7 F (LOW) Pulse - 67 /min Respiration - 20 /min BP - 123/71 mm(hg) O2 Sat - 96 % Pain - 0 Performance Status: 0 - Fully active, able to carry on all predisease activities without restrictions. (ECOG) Physical Examination: ENMT - No mouth sores, no thrush, no jaundice, Respiratory - Lungs are clear, Cardiovascular - Regular rate and rhythm of heart, Abdomen - Soft, bowel sounds present, Extremities - No visible edema. 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 Or polycythemia vera but less likely.as Fabiano 2 mutation came back negative History of sleep apnea on CPAP machine History of chronic smoking 2 packs per day for 30 years, quit 10 years ago. Plan: Discussed with patient regarding her labs white blood count 7.3 hemoglobin 14.8 crit 47.7 platelets 182,000 with a normal differential Clinically, patient doing well with no new signs symptoms his follow-up CBC shows hemoglobin/hematocrit within normal range, as patient has reactive polycythemia so goal is to keep his hematocrit below 55 unless symptomatic. Patient was advised to use CPAP machine diligently and he will return to clinic in 2 months with CBC. Signed By: Marco Crawford M.D. <<Signature on File>>
== END 2020-02-17 08:27 | disposition home or self-care (01) ==
LOC: ONCMED 08:31
PROVIDERS: PCP Nurse Practitioner; Visit Provider Internal Medicine Hematology & Oncology
DX: D75.1 Secondary polycythemia (principal); Z87.891 Personal history of nicotine dependence; G47.30 Sleep apnea, unspecified; Z99.89 Dependence on other enabling machines and devices
CPT/HCPCS: 85025; G0463

== ENCOUNTER 2020-03-21 20:00 | Outpatient (CLI) | payer MEDICARE, SELFPAY | END 2020-03-21 20:01 | disposition home or self-care (01) | LOC: SLEEP 03-22 09:27 | PROVIDERS: PCP Nurse Practitioner; Visit Provider Nurse Practitioner | DX: G47.33 Obstructive sleep apnea (adult) (pediatric) (principal) | CPT/HCPCS: 95811 ==

== ENCOUNTER 2021-06-16 08:08 | Emergency (ER) | payer MEDICARE, SELFPAY ==
[2021-06-16 08:18] VITALS: BMI 32.5
[2021-06-16 08:22] VITALS: BP 131/82; PULSE 65; O2SAT 94
--- NOTE | 2021-06-16 08:24 | USR_ITS ---
PROCEDURE INFORMATION: Exam: US Duplex Left Lower Extremity Veins, Limited Exam date and time: 06/16/2021 8:24 AM Age: 71 years old Clinical indication: Pain; Swelling (edema) of limb; Lower extremity, left; Leg, lower; Additional info: Pain swelling TECHNIQUE: Imaging protocol: Real-time Duplex ultrasound of the Left Lower Extremity with 2-D wynn scale, color Doppler flow and spectral waveform analysis with image documentation. Limited exam focused on the left lower extremity veins. COMPARISON: No relevant prior studies available. FINDINGS: Left deep veins: There is echogenic noncompressible occlusive thrombus within the distal left common femoral vein, and throughout the femoral vein, popliteal vein, and peroneal trunk. Partially occlusive thrombus within the visualized proximal profundus femoral vein. Left superficial veins: Unremarkable. Saphenofemoral junction is patent without thrombus. Soft tissues: Unremarkable. US/CV venous duplex [facility] [id number] IMPRESSION: Positive for left lower extremity DVT.
--- NOTE | 2021-06-16 08:24 | ED_ITS ---
HPI - Extremity Problem General: Chief complaint: Extremity Problem,Nontraumatic Stated complaint: L LEG BLOOD CLOT Time Seen by Provider: 06/16/21 08:09 History of Present Illness: HPI Narrative: 71-year-old male presents to the emergency room complaining of swelling and pain in his left lower leg. Began overnight. He denies any shortness of breath or any chest pain. He is not had a history of DVT. Patient is diabetic and has a history of hypertension. MD Complaint: extremity pain Onset (ago): minute(s) Pain Consistency: constant Location: left and lower extremity Quality: aching Radiation: proximal Relieving factors: nothing Exacerbating factors: nothing Associated symptoms: Deny arthralgias, chest pain, fever(s), myalgias, rash or short of breath Context: recent surgery/procedure (Recently has had increased sedentary time secondary to her cataract surgery) Review of Systems Const: Denies: fever(s) ENMT: Denies: throat pain, ear or mastoid pain, nasal discharge or nasal congestion Card: Denies: chest pain Resp: Denies: dyspnea, productive cough or non-productive cough GI: Denies: abdominal pain, nausea, vomiting, hematemesis, coffee ground emesis, diarrhea, constipation, bloating, hematochezia or melena : Denies: flank pain, dysuria, urinary frequency or urinary urgency Skin/Breast: Denies: rash PFSH ED PFSH: Medical History BPH NOS w ur obs/LUTS Transurethral section of the prostate gland November 2019 with excellent response. Diabetes Erectile dysfunction Major depression Osteoarthritis Sleep apnea Surgical History H/O arthroscopy of knee right H/O carpal tunnel repair bilateral Hx of shoulder surgery bilateral S/P TURP (status post transurethral resection of prostate) Family History Father , at age 85 No problems noted. Mother , at age 78 Cancer pancreatic Other CAD (coronary artery disease) Diabetes Hypertension Social History Smoking and tobacco status: former smoker Alcohol intake: never Marital status: Current occupational status: retired History of recent travel: No Physical Exam Const: COMMON NORMALS: no acute distress GENERAL APPEARANCE: cooperative and comfortable ORIENTATION/CONSCIOUSNESS: Yes awake, Yes oriented to person, Yes oriented to place and Yes oriented to time HENMT: COMMON NORMALS: normocephalic, atraumatic and hearing grossly normal bilaterally HEAD & SCALP: normocephalic and atraumatic Neck/C-Spine: COMMON NORMALS: no JVD Resp: COMMON NORMALS: normal respiratory effort, No retractions, No use of accessory muscles and clear to auscultation bilaterally AUSCULTATION: clear to auscultation bilaterally Cardio: COMMON NORMALS: no JVD, regular rate, regular rhythm and No murmurs present (Cardio) RATE: regular rate RHYTHM: regular rhythm GI: COMMON NORMALS: Soft to palpation and No hepatosplenomegaly present AUSCULTATION: Yes normoactive bowel sounds PALPATION: Yes Soft to palpation, No Tenderness to palpation present (GI), No Guarding due to palpation present (GI) and Yes No hepatosplenomegaly present Extremity: COMMON NORMALS: normal to inspection, capillary refill normal, no clubbing, cyanosis or edema, no calf tenderness and no pedal edema Neuro: SENSORIUM/ORIENTATION: Yes oriented to person, Yes oriented to place and Yes oriented to time Skin: COMMON NORMALS: no rashes or lesions noted GENERAL SKIN EXAM: no rashes or lesions noted Course Vital Signs: Vital signs: Vital Signs Pulse Rate 65 06/16/21 09:31 Respiratory Rate 18 06/16/21 09:31 Blood Pressure 113/75 06/16/21 09:31 Pulse Oximetry 95 06/16/21 09:31 MDM - Extremity (Nontraumatic) MDM Narrative: Medical decision making narrative: Venous duplex shows DVT. We will go ahead and give him Lovenox here and then start him on Eliquis discussed risk benefits alternatives watch for signs of bleeding follow-up with primary care within the week anticipated at minimum 6 to 9 months on oral anticoagulants. By his history it sounds like he has been more sedentary since his cataract surgery which I suspect is what precipitated this he is not previously had DVT. Discharge Plan Discharge Patient Disposition: Home Clinical Impression: Left leg DVT Condition: Stable Prescriptions: New Eliquis DVT-PE Treat 30D Start 5 mg (74 tabs) tablets,dose pack See Rx Instructions .ROUTE .COMPLEX Qty: 74 RF: 0 No Action atorvastatin [Lipitor] 10 mg tablet 10 mg PO DAILY RF: 0 aspirin 325 mg tablet 325 mg PO DAILY RF: 0 Hold Instructions: Resume on 11/19/19. metformin 850 mg tablet 850 mg PO BID RF: 0 valsartan 80 mg tablet 80 mg PO DAILY RF: 0 tramadol 50 mg tablet 50 mg PO BID PRN (Reason: Anxiety) RF: 0 alprazolam 0.5 mg tablet 0.5 mg PO .prn RF: 0 propranolol 40 mg tablet 40 mg PO DAILY RF: 0 tamsulosin 0.4 mg capsule 0.4 mg PO DAILY RF: 0 zolpidem 10 mg tablet 10 mg PO .prn RF: 0 sertraline 50 mg tablet 50 mg PO DAILY RF: 0 finasteride 5 mg tablet 5 mg PO DAILY RF: 0 cetirizine 10 mg capsule 10 mg PO .prn RF: 0 Invokana 300 mg tablet 300 mg PO DAILY RF: 0 Discharge Orders: Discharge ED (Routine); Ordered 06/16/21 Ordered By: Isacc Navarrete Referrals: Aylin Burns APN [Primary Care Provider] - Patient Instructions: Opioid Safety Activity Restrictions/Additional Instructions: Follow-up with your primary care doctor within the next week. Return to the emergency room if you have any chest pain or significant shortness of breath. Coding Level of Care Code ED Director [employer] for Joe Gutierrez
[2021-06-16 08:38] VITALS: PULSE 95
[2021-06-16] MEDS: enoxaparin 120 mg/0.8 mL Syringe 110 MG SUBCUT (09:28)
[2021-06-16 09:31] VITALS: BP 113/75; PULSE 65; RESP 18; O2SAT 95
== END 2021-06-16 09:35 | disposition home or self-care (01) ==
PROVIDERS: Emergency Provider Family Medicine; PCP Nurse Practitioner
DX: I82.412 Acute embolism and thrombosis of left femoral vein (principal); Z79.82 Long term (current) use of aspirin; Z79.84 Long term (current) use of oral hypoglycemic drugs; E11.9 Type 2 diabetes mellitus without complications; Z87.891 Personal history of nicotine dependence
CPT/HCPCS: 93971; 96372; 99283; J1650

== ENCOUNTER 2022-01-15 08:11 | Outpatient (CLI) | payer MEDICARE, SELFPAY ==
--- NOTE | 2022-01-15 08:18 | CT_ITS ---
WS: [id number] CT HEAD TECHNIQUE: Noncontrast CT of the head obtained from the skullbase to the vertex. CLINICAL INFORMATION: COGNITIVE DECLINE COMPARISON: None. DLP: 1107.[address] scans at [facility] use at least one of these dose optimization techniques: automated e xposure control; mA and/or kV adjustment per patient size (includes targeted exams where dose is matc hed to clinical indication); or iterative reconstruction. FINDINGS: No evidence of intracranial hemorrhage or mass effect. Ventricular system and basal cisterns are alvarez nt. Moderate small vessel changes with moderate parenchymal volume loss. Tiny chronic lacunar infarct s in the RIGHT caudate and RIGHT greater than LEFT basal ganglia. No extra-axial fluid collections. N o evidence of mass or mass effect. Intracranial vascular calcification. Mild mucosal thickening LEFT maxillary sinus. Mastoid air cells well aerated. CT/CT head wo con* [id number] IMPRESSION: 1. No evidence of intracranial hemorrhage or mass effect. 2. Moderate small vessel changes with moderate parenchymal volume loss. 3. Tiny chronic lacunar infarcts in the RIGHT caudate and RIGHT greater than L EFT basal ganglia. 4. Mild mucosal thickening LEFT maxillary sinus.
== END 2022-01-15 08:12 | disposition home or self-care (01) ==
PROVIDERS: PCP Nurse Practitioner; Visit Provider Nurse Practitioner
DX: R41.89 Other symptoms and signs involving cognitive functions and awareness (principal)
CPT/HCPCS: 70450

== ENCOUNTER 2022-03-15 10:02 | Emergency (ER) | payer MEDICARE, SELFPAY ==
[2022-03-15 10:06] VITALS: BP 140/80; PULSE 69; RESP 16; TEMP 35.8; O2SAT 97; BMI 31.6
--- NOTE | 2022-03-15 10:10 | W.ED.EXTPRO ---
Documented by User: Keisha Marvin PA-C 03/15/22 12:11 HPI - Extremity Problem General: Chief complaint: Extremity Problem,Nontraumatic Stated complaint: Left leg pain Time Seen by Provider: 03/15/22 10:09 Source: patient Mode of arrival: ambulatory Limitations: no limitations History of Present Illness: 72-year-old male presents to the ER today for left calf pain for the last 3 days. Patient reports he has a history of a DVT approximately 10 months ago in the left lower leg. Patient is on Eliquis and has been taking it daily. Patient reports 3 days ago he noticed that when he bends his knee greater than 30 degrees he has a pulling/pain in the lower leg. Patient reports increased swelling in the left calf. Patient reports the pain is not in the knee but more below the knee and the calf. Patient denies any shortness of breath. Denies any recent illness or long travel. Denies any known injury. Review of Systems General: Reports: 10 or more systems reviewed and unremarkable except in HPI and below PFSH ED PFSH: Medical History (Updated 03/15/22 @ 11:02 by Keisha Marvin PA-C) BPH NOS w ur obs/LUTS Transurethral section of the prostate gland November 2019 with excellent response. Diabetes Erectile dysfunction Major depression Osteoarthritis Sleep apnea Surgical History H/O arthroscopy of knee right H/O carpal tunnel repair bilateral Hx of shoulder surgery bilateral S/P TURP (status post transurethral resection of prostate) Family History Father , at age 85 No problems noted. Mother , at age 78 Cancer pancreatic Other CAD (coronary artery disease) Diabetes Hypertension Social History Smoking and tobacco status: former smoker Alcohol intake: never Marital status: Current occupational status: retired History of recent travel: No Physical Exam Const: COMMON NORMALS: no acute distress, average body habitus, patient oriented x3, no limitations, healthy appearing, alert and well nourished Eye: COMMON NORMALS: conjunctivae normal CONJUNCTIVA: Yes conjunctivae normal Resp: COMMON NORMALS: normal respiratory effort, No retractions and clear to auscultation bilaterally AUSCULTATION: clear to auscultation bilaterally Cardio: COMMON NORMALS: regular rate, regular rhythm and No murmurs present (Cardio) RATE: regular rate RHYTHM: regular rhythm Extremity: NARRATIVE EXTREMITY EXAM: Patient has tenderness to palpation in the posterior left calf, just below the knee. No major swelling is noted however patient does report swelling. No erythema or warmth noted. Neuro: COMMON NORMALS: patient oriented x3 SENSORIUM/ORIENTATION: Yes alert Psych: COMMON NORMALS: mental status grossly normal, Normal thought process present and cooperative THOUGHT PROCESS: Normal thought process present Skin: COMMON NORMALS: no rashes or lesions noted and no wounds GENERAL SKIN EXAM: no rashes or lesions noted Course ED course: 72-year-old male presents to the ER today with left calf pain. This is been going on for 3 days. Patient has a history of a DVT in that leg about 10 months ago. He has been taking his Eliquis appropriately however the pain is continuing to worsen. Patient reports pain is with flexion of the knee joint greater than 30 degrees. He reports some swelling in the left calf also. Patient denies any shortness of breath or chest pain. We will get an ultrasound of the left lower leg. We will also get basic labs. Reevaluation(s): Reevaluation #1: Spoke with emanations analysis technician who reports new DVT. I then went back in with patient and further discuss his Eliquis use. Patient admits to missing doses at night occasionally. I discussed the importance with patient of taking of the Eliquis completely like it is prescribed. We will also add Lovenox at this time. We will refer patient to hematology also. Time: 10:58 Vital Signs: Vital signs: Vital Signs Temperature 96.5 F L 03/15/22 10:06 Pulse Rate 66 03/15/22 11:25 Respiratory Rate 16 03/15/22 11:25 Blood Pressure 126/83 03/15/22 11:25 Pulse Oximetry 94 03/15/22 11:25 Oxygen Delivery Me thod 03/15/22 11:25 MDM - Extremity (Nontraumatic) Medical Decision Making 72-year-old male presents to the ER today with left calf pain. This is been going on for 3 days. Patient has a history of a DVT in that leg about 10 months ago. He has been taking his Eliquis appropriately however the pain is continuing to worsen. Patient reports pain is with flexion of the knee joint greater than 30 degrees. He reports some swelling in the left calf also. Patient denies any shortness of breath or chest pain. We will get an ultrasound of the left lower leg. We will also get basic labs. On ultrasound, it appears patient has new DVT in the left lower extremity. Patient also has old clots there that are stable. After further questioning with patient, he admits to not taking his Eliquis appropriately. I discussed the importance of patient taking the Eliquis appropriately. We will also add Lovenox at this time. We will do a first Lovenox shot in the ER and send patient home with Lovenox that is weight-based to be given twice daily. Patient will be referred to hematology. Patient should contact his PCP on Friday for follow-up. Strict return precautions discussed with patient. Return to the ER with any chest pain shortness of breath or worsening symptoms. Patient verbalized understanding and was in agreement with the treatment plan. Lab Data : 03/15/22 11:20 03/15/22 11:20 Laboratory Results WBC 7.1 10^3/uL (4.0-10.0) 03/15/22 11:20 RBC 5.64 10^6/uL (4.1-5.3) H 03/15/22 11:20 Hgb 17.6 g/dL (11.7-16.6) H 03/15/22 11:20 Hct 52.4 % (42.0-52.0) H 03/15/22 11:20 MCV 92.9 fl (80-94) 03/15/22 11:20 MCH 31.2 pg (28.0-34.0) 03/15/22 11:20 MCHC 33.6 g/dL (30.0-36.0) 03/15/22 11:20 RDW 12.8 % (12.1-15.1) 03/15/22 11:20 Plt Count 150 10^3/cmm (130-400) 03/15/22 11:20 MPV 9.7 fL (7.4-10.4) 03/15/22 11:20 Neut % (Auto) 63.0 % 03/15/22 11:20 Lymph % (Auto) 25.8 % 03/15/22 11:20 Posey % (Auto) 7.9 % 03/15/22 11:20 Eos % (Auto) 2.3 % 03/15/22 11:20 Baso % (Auto) 0.7 % 03/15/22 11:20 Neut # (Auto) 4.44 10^3/uL (1.8-7.7) 03/15/22 11:20 Lymph # (Auto) 1.8 10^3/uL (0.8-4.8) 03/15/22 11:20 Posey # (Auto) 0.6 10^3/uL (0.2-0.9) 03/15/22 11:20 Eos # (Auto) 0.2 10^3/uL (0.0-0.8) 03/15/22 11:20 Baso # (Auto) 0.1 10^3/uL (0.0-0.1) 03/15/22 11:20 Nucleated RBC % (auto) 0 % 03/15/22 11:20 Nucleated RBCs # 0.0 /100WBC 03/15/22 11:20 Sodium 137 mmol/L (136-145) 03/15/22 11:20 Potassium 4.5 mmol/L (3.5-5.1) 03/15/22 11:20 Chloride 103 mmol/L (98-107) 03/15/22 11:20 Carbon Dioxide 21 mmol/L (22-29) L 03/15/22 11:20 Anion Gap 17.5 (5-19) 03/15/22 11:20 BUN 17 mg/dL (8-23) 03/15/22 11:20 Creatinine 1.5 mg/dL (0.7-1.2) H 03/15/22 11:20 GFR Calculation Not Reportable 03/15/22 11:20 Glucose 160 mg/dL (65-115) H 03/15/22 11:20 Calculated Osmolality 289 mOsm/kg (285-295) 03/15/22 11:20 Calcium 9.6 mg/dL (8.5-10.5) 03/15/22 11:20 Critical Care Time Critical Care Time: Critical Care Time: No Discharge Plan Discharge Patient Disposition: Home Clinical Impression: DVT of lower limb, acute Qualifiers: Affected thrombotic vein of extremity: unspecified vein of extremity Laterality: left Qualified Code(s): I82.402 - Acute embolism and thrombosis of unspecified deep veins of left lower extremity Condition: Stable Prescriptions: New Lovenox 100 mg/mL syringe 108 mg SUBCUT Q12H Qty: 10 0RF No Action metformin 850 mg tablet 850 mg PO BID valsartan 80 mg tablet 80 mg PO DAILY tramadol 50 mg tablet 50 mg PO BID PRN (Reason: Anxiety) alprazolam 0.5 mg tablet 0.5 mg PO BEDTIME PRN (Reason: Sleep) propranolol 40 mg tablet 40 mg PO BID PRN (Reason: unknown) zolpidem 10 mg tablet 10 mg PO BEDTIME PRN (Reason: Sleep) finasteride 5 mg tablet 5 mg PO QAM cetirizine 10 mg capsule 10 mg PO DAILY Invokana 300 mg tablet 300 mg PO QAM sertraline 100 mg tablet 100 mg PO QAM simvastatin 40 mg tablet 40 mg PO QAM memantine 5 mg tablet 5 mg PO BID Vitamin D3 25 mcg (1,000 unit) Tablet 25 mcg PO DAILY Eliquis 5 mg tablet 5 mg PO BID Trulicity 0.75 mg/0.5 mL pen injector 0.75 mg SUBCUT Q7D Rx Instructions: on friday Discharge Orders: Discharge ED (Routine); Ordered 03/15/22 Ordered By: Keisha Marvin Referrals: Aylin Burns APN [Primary Care Provider] - Discharge Diet: Usual diet Discharge Activity: Increase activity as tolerated Patient Instructions: Opioid Safety Activity Restrictions/Additional Instructions: Take Eliquis as prescribed at home. Do not miss doses. Take Lovenox injections as prescribed in the ER today. Follow-up with sheep rancher at first available appointment. Return to the ER with any new or worsening symptoms including chest pain or shortness of breath. Coding Level of Care Code ED Manufacturing Accountant for Chg Fwd Exam Detailed Documented by User: Isacc Navarrete DO 03/15/22 18:43 HPI - Extremity Problem General: Chief complaint: Extremity Problem,Nontraumatic Stated complaint: Left leg pain Time Seen by Provider: 03/15/22 10:09 [facility] ED PFS: Medical History (Updated 03/15/22 @ 11:02 by Keisha Marvin PA-C) BPH NOS w ur obs/LUTS Transurethral section of the prostate gland November 2019 with excellent response. Diabetes Erectile dysfunction Major depression Osteoarthritis Sleep apnea Surgical History H/O arthroscopy of knee right H/O carpal tunnel repair bilateral Hx of shoulder surgery bilateral S/P TURP (status post transurethral resection of prostate) Family History Father , at age 85 No problems noted. Mother , at age 78 Cancer pancreatic Other CAD (coronary artery disease) Diabetes Hypertension Social History Smoking and tobacco status: former smoker Alcohol intake: never Marital status: Current occupational status: retired History of recent travel: No Course Vital Signs: Vital signs: Vital Signs Temperature 96.5 F L 03/15/22 10:06 Pulse Rate 66 03/15/22 11:25 Respiratory Rate 16 03/15/22 11:25 Blood Pressure 126/83 03/15/22 11:25 Pulse Oximetry 94 03/15/22 11:25 Oxygen Delivery Me thod 03/15/22 11:25 MDM - Extremity (Nontraumatic) Medical Decision Making 72-year-old male presents to the ER today with left calf pain. This is been going on for 3 days. Patient has a history of a DVT in that leg about 10 months ago. He has been taking his Eliquis appropriately however the pain is continuing to worsen. Patient reports pain is with flexion of the knee joint greater than 30 degrees. He reports some swelling in the left calf also. Patient denies any shortness of breath or chest pain. We will get an ultrasound of the left lower leg. We will also get basic labs. On ultrasound, it appears patient has new DVT in the left lower extremity. Patient also has old clots there that are stable. After further questioning with patient, he admits to not taking his Eliquis appropriately. I discussed the importance of patient taking the Eliquis appropriately. We will also add Lovenox at this time. We will do a first Lovenox shot in the ER and send patient home with Lovenox that is weight-based to be given twice daily. Patient will be referred to hematology. Patient should contact his PCP on Friday for follow-up. Strict return precautions discussed with patient. Return to the ER with any chest pain shortness of breath or worsening symptoms. Patient verbalized understanding and was in agreement with the treatment plan. Chart reviewed and patient discussed with midlevel. Agree with assessment and plan. Lab Data : 03/15/22 11:20 03/15/22 11:20 Laboratory Results WBC 7.1 10^3/uL (4.0-10.0) 03/15/22 11:20 RBC 5.64 10^6/uL (4.1-5.3) H 03/15/22 11:20 Hgb 17.6 g/dL (11.7-16.6) H 03/15/22 11:20 Hct 52.4 % (42.0-52.0) H 03/15/22 11:20 MCV 92.9 fl (80-94) 03/15/22 11:20 MCH 31.2 pg (28.0-34.0) 03/15/22 11:20 MCHC 33.6 g/dL (30.0-36.0) 03/15/22 11:20 RDW 12.8 % (12.1-15.1) 03/15/22 11:20 Plt Count 150 10^3/cmm (130-400) 03/15/22 11:20 MPV 9.7 fL (7.4-10.4) 03/15/22 11:20 Neut % (Auto) 63.0 % 03/15/22 11:20 Lymph % (Auto) 25.8 % 03/15/22 11:20 Posey % (Auto) 7.9 % 03/15/22 11:20 Eos % (Auto) 2.3 % 03/15/22 11:20 Baso % (Auto) 0.7 % 03/15/22 11:20 Neut # (Auto) 4.44 10^3/uL (1.8-7.7) 03/15/22 11:20 Lymph # (Auto) 1.8 10^3/uL (0.8-4.8) 03/15/22 11:20 Posey # (Auto) 0.6 10^3/uL (0.2-0.9) 03/15/22 11:20 Eos # (Auto) 0.2 10^3/uL (0.0-0.8) 03/15/22 11:20 Baso # (Auto) 0.1 10^3/uL (0.0-0.1) 03/15/22 11:20 Nucleated RBC % (auto) 0 % 03/15/22 11:20 Nucleated RBCs # 0.0 /100WBC 03/15/22 11:20 Sodium 137 mmol/L (136-145) 03/15/22 11:20 Potassium 4.5 mmol/L (3.5-5.1) 03/15/22 11:20 Chloride 103 mmol/L (98-107) 03/15/22 11:20 Carbon Dioxide 21 mmol/L (22-29) L 03/15/22 11:20 Anion Gap 17.5 (5-19) 03/15/22 11:20 BUN 17 mg/dL (8-23) 03/15/22 11:20 Creatinine 1.5 mg/dL (0.7-1.2) H 03/15/22 11:20 GFR Calculation Not Reportable 03/15/22 11:20 Glucose 160 mg/dL (65-115) H 03/15/22 11:20 Calculated Osmolality 289 mOsm/kg (285-295) 03/15/22 11:20 Calcium 9.6 mg/dL (8.5-10.5) 03/15/22 11:20 Discharge Plan Discharge Patient Disposition: Home Clinical Impression: DVT of lower limb, acute Qualifiers: Affected thrombotic vein of extremity: unspecified vein of extremity Laterality: left Qualified Code(s): I82.402 - Acute embolism and thrombosis of unspecified deep veins of left lower extremity Condition: Stable Prescriptions: New Lovenox 100 mg/mL syringe 108 mg SUBCUT Q12H Qty: 10 0RF No Action metformin 850 mg tablet 850 mg PO BID valsartan 80 mg tablet 80 mg PO DAILY tramadol 50 mg tablet 50 mg PO BID PRN (Reason: Anxiety) alprazolam 0.5 mg tablet 0.5 mg PO BEDTIME PRN (Reason: Sleep) propranolol 40 mg tablet 40 mg PO BID PRN (Reason: unknown) zolpidem 10 mg tablet 10 mg PO BEDTIME PRN (Reason: Sleep) finasteride 5 mg tablet 5 mg PO QAM cetirizine 10 mg capsule 10 mg PO DAILY Invokana 300 mg tablet 300 mg PO QAM sertraline 100 mg tablet 100 mg PO QAM simvastatin 40 mg tablet 40 mg PO QAM memantine 5 mg tablet 5 mg PO BID Vitamin D3 25 mcg (1,000 unit) Tablet 25 mcg PO DAILY Eliquis 5 mg tablet 5 mg PO BID Trulicity 0.75 mg/0.5 mL pen injector 0.75 mg SUBCUT Q7D Rx Instructions: on friday Discharge Orders: Discharge ED (Routine); Ordered 03/15/22 Ordered By: Kiesha Marvin Referrals: Aylin Burns APN [Primary Care Provider] - Discharge Diet: Usual diet Discharge Activity: Increase activity as tolerated Patient Instructions: Opioid Safety Activity Restrictions/Additional Instructions: Take Eliquis as prescribed at home. Do not miss doses. Take Lovenox injections as prescribed in the ER today. Follow-up with sheep rancher at first available appointment. Return to the ER with any new or worsening symptoms including chest pain or shortness of breath. Coding Level of Care Code ED Manufacturing Accountant for Joe Gutierrez Exam Detailed
--- NOTE | 2022-03-15 10:20 | USCV_ITS ---
Landen Romero Age: 72 Gender: M : 1950 Exam Date: 03/15/2022 10:40 Ordering Phys: Keisha Marvin Technologist: RAMILA Exam Location: [facility] [place] Indication: lt leg pain and swelling hx of dvt on lt leg PROCEDURES: Venous duplex imaging was performed in only the left lower extremity. The following venous structures were evaluated: common femoral vein, profunda vein, proximal portion of the greater saphenous vein, superficial femoral vein, and the popliteal vein. In addition, the posterior tibial and peroneal trunk were evaluated. FINDINGS: There is non occluding dvt in the lt cfv, profunda , pop and perineal trunk. There is occluding dvt all the way down the femoral vein from cfv to pop. CONCLUSIONS Occlusive DVT proximal mid and distal femoral vein and popliteal vein. Additional partial non occlusive DVT in the common femoral, profunda and peroneal trunk Jeff Jean MD (Electronically Signed) Final Date: 15 March 2022 14:18 S
--- NOTE | 2022-03-15 10:47 | PC.PHAR ---
pt states he takes care of his own medications-pt states he takes xanax 0.5mg hs prn,finasteride 5mg qam,metformin 850mg bid,valsartan 80mg daily and zolpidem 10mg hs prn pt states he has those medications pt states gets from mail order but is unsure of the mail order companies name medications were on previous entered med list-pt states he is unsure if he is taking memantine 5mg bid filled 11/22/21 30d/s ashley from [facility] states the rx has refills-
[2022-03-15] MEDS: enoxaparin 100 mg/mL Syringe SUBCUT (11:24)
[2022-03-15 11:25] VITALS: BP 126/83; PULSE 66; RESP 16; O2SAT 94
[2022-03-15 11:27] LABS: Basophils # 0.1 10^3/uL (0.0-0.1); Basophils % 0.7 %; Eosinophils # 0.2 10^3/uL (0.0-0.8); Eosinophils % 2.3 %; Hematocrit 52.4 % (42.0-52.0); Hemoglobin 17.6 g/dL (11.7-16.6); Lymphocytes # 1.8 10^3/uL (0.8-4.8); Lymphocytes % 25.8 %; Mean Corpuscular HGB Conc 33.6 g/dL (30.0-36.0); Mean Corpuscular Hemoglobin 31.2 pg (28.0-34.0); Mean Corpuscular Volume 92.9 fl (80-94); Mean Platelet Volume 9.7 fL (7.4-10.4); Monocytes # 0.6 10^3/uL (0.2-0.9); Monocytes % 7.9 %; Neutrophils # 4.44 10^3/uL (1.8-7.7); Nucleated Red Blood Cells % 0 %; Platelet Count 150 10^3/cmm (130-400); Red Blood Count 5.64 10^6/uL (4.1-5.3); Red Cell Distribution Width 12.8 % (12.1-15.1); White Blood Count 7.1 10^3/uL (4.0-10.0)
[2022-03-15 11:45] LABS: Anion Gap 17.5 (5-19); Blood Urea Nitrogen 17 mg/dL (8-23); Calcium 9.6 mg/dL (8.5-10.5); Carbon Dioxide 21 mmol/L (22-29); Chloride 103 mmol/L (98-107); Glucose 160 mg/dL (65-115); Osmolality Calculated 289 mOsm/kg (285-295); Potassium 4.5 mmol/L (3.5-5.1); Sodium 137 mmol/L (136-145)
--- NOTE | 2022-03-19 13:17 | DCPLANNER ---
Addendum entered by Radha Ceron 06/03/22 09:13: Patient had a follow up appointment scheduled for 04.02.[address] Gonzales - patient did attend appointment. Original Note: room service manager was asked to schedule a follow up appointment for patient with hematology, Dr. Gonzales. room service manager called Gina Torres, sales and marketing coordinator, gave clinic patients information. room service manager was told that patients information would be printed and reviewed, clinic will call patient with appointment information.
== END 2022-03-15 11:29 | disposition home or self-care (01) ==
PROVIDERS: Emergency Provider Physician Assistant; PCP Nurse Practitioner
DX: I82.402 Acute embolism and thrombosis of unspecified deep veins of left lower extremity (principal); Z79.01 Long term (current) use of anticoagulants; Z79.84 Long term (current) use of oral hypoglycemic drugs; E11.9 Type 2 diabetes mellitus without complications; Z87.891 Personal history of nicotine dependence
CPT/HCPCS: 80048; 85025; 93971; 96372; 99284; J1650

== ENCOUNTER 2022-03-25 09:15 | Emergency (ER) | payer MEDICARE, SELFPAY ==
[2022-03-25 09:19] VITALS: BP 145/82; PULSE 63; RESP 18; TEMP 36.8; O2SAT 98; BMI 30.9
--- NOTE | 2022-03-25 09:26 | CT_ITS ---
WS: [id number] CT ABDOMEN PELVIS TECHNIQUE: Noncontrast CT of the abdomen and pelvis with coronal and sagittal reformatted images. CLINICAL INFORMATION: hematuria COMPARISON: None. DLP: 933.[address] scans at [facility] use at least one of these dose optimization techniques: automated e xposure control; mA and/or kV adjustment per patient size (includes targeted exams where dose is matc hed to clinical indication); or iterative reconstruction. FINDINGS: Adrenal glands are normal. No obstructing renal or ureteral calculi. No hydronephrosis in either kidn ey. LEFT peripelvic renal cyst measuring 3.5 x 3.7 CM. Markedly enlarged heterogeneous nodular prostate suspicious for neoplasia/hyperplasia measuring 6.1 x 5.4 CM. Associated indentation on the bladder with evidence of mild bladder outlet obstruction. Lung bases are well aerated. Noncontrast pancreas is normal. Sigmoid diverticulosis. No evidence of acute diverticulitis. No evidence of high-grade small or large bowel obstruction. No free fluid in the pelvis. Fat-containing LEFT inguinal hernia. Tiny fat-contai sophia umbilical hernia. Chronic LEFT rib fractures with callus formation. L5 is partially sacralized o n the LEFT. CT/CT abdomen pelvis wo con [id number] IMPRESSION: 1. No obstructing renal or ureteral calculi. No hydronephrosis. LEFT peripelvi c renal cyst. 2. Markedly enlarged nodular heterogeneous prostate with indentation on the bl adder measuring 6.0 x 5.4 cm suspicious for neoplasia/hyperplasia.Correlation P SA. 3. Evidence of mild bladder outlet obstruction. 4. Sigmoid diverticulosis. No evidence of acute diverticulitis. 5. No other acute findings.
[2022-03-25 09:45] LABS: Basophils # 0.1 10^3/uL (0.0-0.1); Basophils % 0.8 %; Eosinophils # 0.2 10^3/uL (0.0-0.8); Eosinophils % 2.9 %; Hematocrit 51.6 % (42.0-52.0); Hemoglobin 16.6 g/dL (11.7-16.6); Lymphocytes # 1.9 10^3/uL (0.8-4.8); Lymphocytes % 25.2 %; Mean Corpuscular HGB Conc 32.2 g/dL (30.0-36.0); Mean Corpuscular Hemoglobin 30.7 pg (28.0-34.0); Mean Corpuscular Volume 95.4 fl (80-94); Monocytes # 0.7 10^3/uL (0.2-0.9); Monocytes % 8.9 %; Neutrophils # 4.54 10^3/uL (1.8-7.7); Neutrophils % 61.9 %; Nucleated Red Blood Cells % 0 %; Platelet Count 150 10^3/cmm (130-400); Red Blood Count 5.41 10^6/uL (4.1-5.3); Red Cell Distribution Width 12.7 % (12.1-15.1); White Blood Count 7.3 10^3/uL (4.0-10.0)
[2022-03-25 09:59] LABS: Alanine Aminotransferase 30 U/L (0-41); Albumin Level 3.9 g/dL (3.5-5.2); Alkaline Phosphatase 69 U/L (40-130); Anion Gap 16.1 (5-19); Aspartate Amino Transferase 14 U/L (0-40); Blood Urea Nitrogen 18 mg/dL (8-23); Calcium 8.9 mg/dL (8.5-10.5); Carbon Dioxide 23 mmol/L (22-29); Chloride 102 mmol/L (98-107); Globulin 3.7 g/dL (1.3-4.6); Glucose 157 mg/dL (65-115); Osmolality Calculated 289 mOsm/kg (285-295); Potassium 4.1 mmol/L (3.5-5.1); Sodium 137 mmol/L (136-145); Total Bilirubin 0.6 mg/dL (0.15-1.2); Total Protein 7.6 g/dL (6.6-8.7)
[2022-03-25 10:12] LABS: Bilirubin Urine Neg (Negative); Blood Urine 3+ (Negative); Glucose Urine UA 4+ (Normal); Ketones Urine Negative (Negative); Leukocyte Esterase Urine Negative (Negative); Nitrate Urine Negative (Negative); Protein Urine 1+ (Negative); Urine Appearance SL Hazy (CLEAR); Urine Color Yellow (Yellow); Urobilinogen Urine Norm (Negative); pH Urine 5 (5-7)
[2022-03-25 10:13] LABS: Add Urine Culture? Yes; Add Urine Microscopic? YES; Bacteria Urine 1+ /hpf; RBC Urine >100 /hpf (0-2); WBC Urine RARE /hpf (0-5)
--- NOTE | 2022-03-25 10:13 | ED_ITS ---
HPI - Male Genitourinary General: Chief complaint: Urogenital-Male Stated complaint: Possible blood clots in urine, sent by clinic Time Seen by Provider: 03/25/22 09:26 Source: patient Mode of arrival: ambulatory Limitations: no limitations History of Present Illness: 72-year-old male states that he is diagnosed DVT 2 weeks ago he is on Eliquis along with Lovenox he states that starting Friday has been passing some blood clots in his urine. He denies any pain he states he had some difficulty urinating at times but then is able to go and passes clots he has had no retention he denies any fever denies any worsening improving factors. No history of hematuria in the past. Associated symptoms: Reports hematuria; Deny nausea or vomiting Review of Systems Const: Denies: fever(s), chills, body aches or change in appetite Eyes: Denies: blurry vision or eye discomfort ENMT: Denies: throat pain or dental pain Card: Denies: chest pain Resp: Denies: dyspnea GI: Denies: abdominal pain, nausea, vomiting or diarrhea : Reports: hematuria Musc: Denies: neck pain or back pain Skin/Breast: Denies: rash Neuro: Denies: headache(s) Psych: Denies: depression Luis Alberto/Lymph: Denies: easy bruising All/Imm: Denies: urticaria PFSH ED PFSH: Medical History (Updated 03/25/22 @ 10:41 by Martina Pelayo MD) BPH NOS w ur obs/LUTS Transurethral section of the prostate gland November 2019 with excellent response. Diabetes Erectile dysfunction Major depression Osteoarthritis Sleep apnea Surgical History H/O arthroscopy of knee right H/O carpal tunnel repair bilateral Hx of shoulder surgery bilateral S/P TURP (status post transurethral resection of prostate) Family History Father , at age 85 No problems noted. Mother , at age 78 Cancer pancreatic Other CAD (coronary artery disease) Diabetes Hypertension Social History Smoking and tobacco status: former smoker Alcohol intake: never Marital status: Current occupational status: retired History of recent travel: No Physical Exam Const: COMMON NORMALS: no acute distress, patient oriented x3 and healthy appearing HENMT: COMMON NORMALS: normocephalic and atraumatic HEAD & SCALP: normocephalic and atraumatic Eye: COMMON NORMALS: Equal, round and reactive pupils present and EOMs intact bilaterally PUPIL: Yes Equal, round and reactive pupils present Neck/C-Spine: COMMON NORMALS: full ROM and supple Chest: COMMONS NORMALS: normal inspection of the chest and normal palpation of entire chest wall Resp: COMMON NORMALS: normal respiratory effort, No retractions, No use of accessory muscles and clear to auscultation bilaterally AUSCULTATION: clear to auscultation bilaterally Cardio: COMMON NORMALS: regular rate, regular rhythm and No murmurs present (Cardio) RATE: regular rate RHYTHM: regular rhythm GI: COMMON NORMALS: Normal to inspection, nondistended, normoactive bowel sounds present, Soft to palpation, non-tender and no masses PALPATION: Yes Soft to palpation Extremity: COMMON NORMALS: normal to inspection and full ROM Neuro: COMMON NORMALS: patient oriented x3, moves all extremities and no focal motor deficits Psych: COMMON NORMALS: mental status grossly normal, Normal thought process present and cooperative THOUGHT PROCESS: Normal thought process present Skin: COMMON NORMALS: no rashes or lesions noted and no wounds GENERAL SKIN EXAM: no rashes or lesions noted Course Vital Signs: Vital signs: Vital Signs Temperature 98.2 F 03/25/22 09:19 Pulse Rate 61 03/25/22 10:34 Respiratory Rate 14 03/25/22 10:34 Blood Pressure 114/68 03/25/22 10:34 Pulse Oximetry 94 03/25/22 10:34 Oxygen Delivery Me thod 03/25/22 10:34 MDM - Male Medical Decision Making Patient presents with hematuria likely due to his increase in Eliquis along with Lovenox. He is not having any retention blood works normal CT scan showed no acute abnormalities we will get him follow-up with urology he is return if worsening he understands agrees to plan. Lab Data : 03/25/22 09:35 03/25/22 09:35 Radiology Impressions Abdomen/Pelvis CT 03/25/22 09:26 IMPRESSION: 1. No obstructing renal or ureteral calculi. No hydronephrosis. LEFT peripelvic renal cyst. 2. Markedly enlarged nodular heterogeneous prostate with indentation on the bladder measuring 6.0 x 5.4 cm suspicious for neoplasia/hyperplasia.Correlation PSA. 3. Evidence of mild bladder outlet obstruction. 4. Sigmoid diverticulosis. No evidence of acute diverticulitis. 5. No other acute findings. Laboratory Results WBC 7.3 10^3/uL (4.0-10.0) 03/25/22 09:35 RBC 5.41 10^6/uL (4.1-5.3) H 03/25/22 09:35 Hgb 16.6 g/dL (11.7-16.6) 03/25/22 09:35 Hct 51.6 % (42.0-52.0) 03/25/22 09:35 MCV 95.4 fl (80-94) H 03/25/22 09:35 MCH 30.7 pg (28.0-34.0) 03/25/22 09:35 MCHC 32.2 g/dL (30.0-36.0) 03/25/22 09:35 RDW 12.7 % (12.1-15.1) 03/25/22 09:35 Plt Count 150 10^3/cmm (130-400) 03/25/22 09:35 MPV 10.0 fL (7.4-10.4) 03/25/22 09:35 Neut % (Auto) 61.9 % 03/25/22 09:35 Lymph % (Auto) 25.2 % 03/25/22 09:35 [place] % (Auto) 8.9 % 03/25/22 09:35 Eos % (Auto) 2.9 % 03/25/22 09:35 Baso % (Auto) 0.8 % 03/25/22 09:35 Neut # (Auto) 4.54 10^3/uL (1.8-7.7) 03/25/22 09:35 Lymph # (Auto) 1.9 10^3/uL (0.8-4.8) 03/25/22 09:35 [place] # (Auto) 0.7 10^3/uL (0.2-0.9) 03/25/22 09:35 Eos # (Auto) 0.2 10^3/uL (0.0-0.8) 03/25/22 09:35 Baso # (Auto) 0.1 10^3/uL (0.0-0.1) 03/25/22 09:35 Nucleated RBC % (auto) 0 % 03/25/22 09:35 Nucleated RBCs # 0.0 /100WBC 03/25/22 09:35 Sodium 137 mmol/L (136-145) 03/25/22 09:35 Potassium 4.1 mmol/L (3.5-5.1) 03/25/22 09:35 Chloride 102 mmol/L (98-107) 03/25/22 09:35 Carbon Dioxide 23 mmol/L (22-29) 03/25/22 09:35 Anion Gap 16.1 (5-19) 03/25/22 09:35 BUN 18 mg/dL (8-23) 03/25/22 09:35 Creatinine 1.5 mg/dL (0.7-1.2) H 03/25/22 09:35 GFR Calculation Not Reportable 03/25/22 09:35 Glucose 157 mg/dL (65-115) H 03/25/22 09:35 Calculated Osmolality 289 mOsm/kg (285-295) 03/25/22 09:35 Calcium 8.9 mg/dL (8.5-10.5) 03/25/22 09:35 Total Bilirubin 0.6 mg/dL (0.15-1.2) 03/25/22 09:35 AST 14 U/L (0-40) 03/25/22 09:35 ALT 30 U/L (0-41) 03/25/22 09:35 Alkaline Phosphatase 69 U/L (40-130) 03/25/22 09:35 Total Protein 7.6 g/dL (6.6-8.7) 03/25/22 09:35 Albumin 3.9 g/dL (3.5-5.2) 03/25/22 09:35 Globulin 3.7 g/dL (1.3-4.6) 03/25/22 09:35 Urine Color Yellow (Yellow) 03/25/22 09:35 Urine Appearance Sl hazy (CLEAR) 03/25/22 09:35 Urine pH 5 (5-7) 03/25/22 09:35 Ur Specific [place] 1.010 (1.005-1.030) 03/25/22 09:35 Urine Protein 1+ (Negative) H 03/25/22 09:35 Urine Glucose (UA) 4+ (Normal) H 03/25/22 09:35 Urine Ketones Negative (Negative) 03/25/22 09:35 Urine Blood 3+ (Negative) H 03/25/22 09:35 Urine Nitrate Negative (Negative) 03/25/22 09:35 Urine Bilirubin Neg (Negative) 03/25/22 09:35 Urine Urobilinogen Norm mg/dL (Negative) 03/25/22 09:35 Ur Leukocyte Esterase Negative (Negative) 03/25/22 09:35 Urine RBC >100 /hpf (0-2) H 03/25/22 09:35 Urine WBC Rare /hpf (0-5) 03/25/22 09:35 Ur Squamous Epith Cells None /hpf (0-5) 03/25/22 09:35 Amorphous Sediment Not Reportable 03/25/22 09:35 Urine Bacteria 1+ /hpf (NONE) H 03/25/22 09:35 Discharge Plan Discharge Patient Disposition: Home Clinical Impression: Hematuria Qualifiers: Hematuria type: unspecified type Qualified Code(s): R31.9 - Hematuria, unspecified Condition: Stable Prescriptions: No Action metformin 850 mg tablet 850 mg PO BID valsartan 80 mg tablet 80 mg PO DAILY tramadol 50 mg tablet 50 mg PO BID PRN (Reason: Anxiety) alprazolam 0.5 mg tablet 0.5 mg PO BEDTIME PRN (Reason: Sleep) propranolol 40 mg tablet 40 mg PO BID PRN (Reason: unknown) zolpidem 10 mg tablet 10 mg PO BEDTIME PRN (Reason: Sleep) finasteride 5 mg tablet 5 mg PO QAM cetirizine 10 mg capsule 10 mg PO DAILY Invokana 300 mg tablet 300 mg PO QAM sertraline 100 mg tablet 100 mg PO QAM simvastatin 40 mg tablet 40 mg PO QAM memantine 5 mg tablet 5 mg PO BID Vitamin D3 25 mcg (1,000 unit) Tablet 25 mcg PO DAILY Eliquis 5 mg tablet 5 mg PO BID Trulicity 0.75 mg/0.5 mL pen injector 0.75 mg SUBCUT Q7D Rx Instructions: on friday Lovenox 100 mg/mL syringe 108 mg SUBCUT Q12H Qty: 10 0RF Discharge Orders: Discharge ED (Routine); Ordered 03/25/22 Ordered By: Martina Pelayo Referrals: Aylin Burns APN [Primary Care Provider] - Cresencio Henson MD [Physician] - 1-3 days Discharge Diet: Advance as tolerated Discharge Activity: Resume usual activity Patient Instructions: Hematuria (ED) Coding Level of Care Code ED Product/Device Technologist for Chg Fwd Exam Comprehensive
[2022-03-25 10:34] VITALS: BP 114/68; PULSE 61; RESP 14; O2SAT 94
--- NOTE | 2022-03-25 13:52 | DCPLANNER ---
Addendum entered by Radha Ceron 06/17/22 15:20: Patient had a follow up appointment scheduled with urology on 04.11.22 - patient did attend appointment. Addendum entered by Radha Ceron 04/01/22 09:34: Patient has a follow up appointment scheduled for Monday, April 11, 2022 at 3:[address] Henson at Urology. Clinic will call patient with appointment information. Original Note: cycle manager had message to schedule a follow up appointment for patient with urology. cycle manager sent patients information to the front office staff at [facility]. Patients information will be printed and reviewed. Clinic will call patient with appointment information.
== END 2022-03-25 10:56 | disposition home or self-care (01) ==
PROVIDERS: Emergency Provider Emergency Medicine; PCP Nurse Practitioner
DX: R31.9 Hematuria, unspecified (principal); Z79.01 Long term (current) use of anticoagulants; Z79.899 Other long term (current) drug therapy; Z79.84 Long term (current) use of oral hypoglycemic drugs; E11.9 Type 2 diabetes mellitus without complications; Z87.891 Personal history of nicotine dependence
CPT/HCPCS: 74176; 80053; 81001; 85025; 87086; 99284

== ENCOUNTER 2022-04-02 08:03 | Oncology outpatient (recurring) (ONCR) | payer MEDICARE, SELFPAY ==
[2022-04-02 09:32] LABS: Basophils # 0.1 10^3/uL (0.0-0.1); Basophils % 0.7 %; Eosinophils # 0.1 10^3/uL (0.0-0.8); Eosinophils % 1.4 %; Hematocrit 54.3 % (42.0-52.0); Lymphocytes # 1.5 10^3/uL (0.8-4.8); Lymphocytes % 19.7 %; Mean Corpuscular HGB Conc 33.1 g/dL (30.0-36.0); Mean Corpuscular Hemoglobin 30.6 pg (28.0-34.0); Mean Corpuscular Volume 92.2 fl (80-94); Mean Platelet Volume 9.5 fL (7.4-10.4); Monocytes # 0.5 10^3/uL (0.2-0.9); Monocytes % 6.3 %; Neutrophils # 5.47 10^3/uL (1.8-7.7); Neutrophils % 71.2 %; Nucleated Red Blood Cells % 0 %; Platelet Count 188 10^3/cmm (130-400); Red Blood Count 5.89 10^6/uL (4.1-5.3); Red Cell Distribution Width 12.6 % (12.1-15.1); White Blood Count 7.7 10^3/uL (4.0-10.0)
[2022-04-02 10:00] LABS: Alanine Aminotransferase 24 U/L (0-41); Alkaline Phosphatase 106 U/L (40-130); Blood Urea Nitrogen 20 mg/dL (8-23); Calcium 10.3 mg/dL (8.5-10.5); Carbon Dioxide 25 mmol/L (22-29); Chloride 104 mmol/L (98-107); Globulin 3.7 g/dL (1.3-4.6); Glucose 207 mg/dL (65-115); Osmolality Calculated 297 mOsm/kg (285-295); Sodium 139 mmol/L (136-145); Total Bilirubin 0.4 mg/dL (0.15-1.2); Total Protein 7.7 g/dL (6.6-8.7)
[2022-04-02 10:03] LABS: Anion Gap 14.8 (5-19); Potassium 4.8 mmol/L (3.5-5.1)
[2022-04-02 10:04] LABS: Aspartate Amino Transferase 17 U/L (0-40); Lactate Dehydrogenase 186 U/L (135-225)
[2022-04-05 03:28] LABS: CARDIOLIPIN AB (IGA) <2.0 APL-U/mL; CARDIOLIPIN AB (IGG) <2.0 GPL-U/mL; CARDIOLIPIN AB (IGM) <2.0 MPL-U/mL
[2022-04-05 21:17] LABS: Beta 2 Glycoprotein IGA <2.0 U/mL (<20.0); Beta 2 Glycoprotein IGG <2.0 U/mL (<20.0); Beta 2 Glycoprotein IGM <2.0 U/mL (<20.0)
[2022-04-10 11:42] LABS: CALR Exon 9 Mutation NOT DETECTED (NOT DETECTED); CSF3R Exon 14/17 Mutation NOT DETECTED (NOT DETECTED); JAK2 Exon 12 Mutation NOT DETECTED (NOT DETECTED); JAK2 V617 Clinical Indication NG; JAK2 V617 Mutation NOT DETECTED (NOT DETECTED); JAK2 V617 Specimen Source BLOOD; MPL Exon 12 Mutation NOT DETECTED (NOT DETECTED)
== END 2022-04-05 23:59 | disposition home or self-care (01) ==
PROVIDERS: PCP Nurse Practitioner; Visit Provider Internal Medicine Medical Oncology
DX: I82.402 Acute embolism and thrombosis of unspecified deep veins of left lower extremity (principal); Z79.01 Long term (current) use of anticoagulants; R31.9 Hematuria, unspecified; N40.1 Benign prostatic hyperplasia with lower urinary tract symptoms; D75.1 Secondary polycythemia; Z79.899 Other long term (current) drug therapy; Z87.891 Personal history of nicotine dependence
CPT/HCPCS: 36415; 80053; 81219; 81270; 81339; 81403; 81479; 83615; 84153; 85025; 86146; 86147; 99214; 99215

== ENCOUNTER → 2022-04-11 15:21 | Outpatient (BNVA) | payer MEDICARE, SELFPAY | PROVIDERS: PCP Nurse Practitioner Family; Visit Provider Urology | DX: N40.1 Benign prostatic hyperplasia with lower urinary tract symptoms (principal); R31.0 Gross hematuria | CPT/HCPCS: 51798; 52000; 81003; 99213 ==

== ENCOUNTER 2022-08-22 11:50 | Oncology outpatient (recurring) (ONCR) | payer MEDICARE, SELFPAY ==
[2022-08-22 12:22] LABS: Basophils # 0.1 10^3/uL (0.0-0.1); Basophils % 0.7 %; Eosinophils # 0.2 10^3/uL (0.0-0.8); Eosinophils % 2.6 %; Hematocrit 54.9 % (42.0-52.0); Hemoglobin 18.5 g/dL (11.7-16.6); Lymphocytes # 2.2 10^3/uL (0.8-4.8); Lymphocytes % 31.1 %; Mean Corpuscular HGB Conc 33.7 g/dL (30.0-36.0); Mean Corpuscular Hemoglobin 30.5 pg (28.0-34.0); Mean Corpuscular Volume 90.6 fl (80-94); Mean Platelet Volume 10.3 fL (7.4-10.4); Monocytes # 0.5 10^3/uL (0.2-0.9); Monocytes % 7.7 %; Neutrophils # 4.04 10^3/uL (1.8-7.7); Neutrophils % 57.8 %; Nucleated Red Blood Cells % 0 %; Platelet Count 147 10^3/cmm (130-400); Red Blood Count 6.06 10^6/uL (4.1-5.3); Red Cell Distribution Width 13.2 % (12.1-15.1)
[2022-08-22 12:34] LABS: Alanine Aminotransferase 19 U/L (0-41); Albumin Level 4.4 g/dL (3.5-5.2); Alkaline Phosphatase 75 U/L (40-130); Aspartate Amino Transferase 15 U/L (0-40); Blood Urea Nitrogen 26 mg/dL (8-23); Calcium 9.2 mg/dL (8.5-10.5); Carbon Dioxide 21 mmol/L (22-29); Chloride 101 mmol/L (98-107); Globulin 3.1 g/dL (1.3-4.6); Glucose 168 mg/dL (65-115); Osmolality Calculated 291 mOsm/kg (285-295); Sodium 136 mmol/L (136-145); Total Bilirubin 0.9 mg/dL (0.15-1.2); Total Protein 7.5 g/dL (6.6-8.7)
[2022-08-22 12:37] LABS: Anion Gap 18.7 (5-19); Potassium 4.7 mmol/L (3.5-5.1)
== END 2022-09-03 23:59 | disposition home or self-care (01) ==
LOC: ONCMED 11:50
PROVIDERS: PCP Nurse Practitioner Family; Visit Provider Internal Medicine Medical Oncology
DX: I82.502 Chronic embolism and thrombosis of unspecified deep veins of left lower extremity (principal); Z79.01 Long term (current) use of anticoagulants; D75.1 Secondary polycythemia; Z87.891 Personal history of nicotine dependence
CPT/HCPCS: 80053; 85025; 99214

== ENCOUNTER 2022-09-11 07:25 | Observation (INO) | payer MEDICARE, SELFPAY ==
[2022-09-11] VITALS (8 sets, daily range): BP systolic 95–163; BP diastolic 62–87; PULSE 58–73; RESP 14–22; TEMP 36.3–36.8; O2SAT 90–96; BMI 31.8
--- NOTE | 2022-09-11 07:43 | ED_ITS ---
Documented by User: NIKKI Abarca 09/11/22 13:51 HPI - Male Genitourinary General: Chief complaint: Urogenital-Male Stated complaint: urinating blood Time Seen by Provider: 09/11/22 07:41 Source: patient Mode of arrival: ambulatory Limitations: no limitations History of Present Illness: Patient is a 72-year-old male who presents to ED today with a complaint of hematuria that began earlier this morning. Patient states he has had multiple episodes of gross hematuria. He reports some mild suprapubic pressure. He does have a little bit of burning when he urinates. He reports urinary frequency and urgency. He states he is only able to go a small amount at a time. No clot passage. No urinary retention. Patient has a history of BPH with previous TURP. Denies flank pain. No N/V/D. No fevers/chills. Patient is on anticoagulation. Complaint: other (hematuria) Onset (ago): hour(s) Severity: mild Relieving factors: none Exacerbating factors: urination Associated symptoms: Reports dysuria and hematuria; Deny nausea or vomiting Review of Systems Const: Denies: fever(s), chills, body aches, fatigue or malaise Card: Denies: lightheadedness, syncope or pre-syncope GI: Reports: abdominal pain (reports slight pressure to suprapubic region); Denies: nausea, vomiting, diarrhea or change in bowel habits : Reports: dysuria, urinary frequency, urinary urgency and hematuria; Denies: flank pain, difficulty urinating, urinary hesitancy, urinary dribbling, genital pain, testicular pain, testicular mass or scrotal swelling Musc: Denies: neck pain, back pain, extremity pain, extremity swelling, joint pain or joint swelling Skin/Breast: Denies: rash Neuro: Denies: headache(s) or dizziness PFSH ED PFSH: Medical History (Updated 09/13/22 @ 00:00 by LIBBY [place]) BPH NOS w ur obs/LUTS Transurethral section of the prostate gland November 2019 with excellent response. Erectile dysfunction Gross hematuria Hyperlipidemia Hypertension Major depression Obstructive sleep apnea Osteoarthritis Recurrent deep vein thrombosis of left lower extremity Type 2 diabetes mellitus Surgical History H/O arthroscopy of knee right H/O carpal tunnel repair bilateral History of cataract extraction Bilateral cataract surgery and bilateral Lasik surgery Hx of shoulder surgery bilateral S/P TURP (status post transurethral resection of prostate) Family History Father , at age 85 No problems noted. Mother , at age 78 Cancer pancreatic Other CAD (coronary artery disease) Diabetes Hypertension Social History Smoking and tobacco status: former smoker (smoked x 35 years) Alcohol intake: never Marital status: Current occupational status: retired Course ED course: Patient initially presented to ED with no complaints of pain apart from some mild suprapubic pressure. On re-examination he tells me he has developed acute onset left lower back pain suspicious for possible ureterolithiasis. Will obtain CT imaging for further evaluation. Consultations: Consultation #1: Dr. Henson-recommends bladder irrigation until clear-will call after about 5L or so and see where wer're at Vital Signs: Vital signs: Vital Signs Temperature 98.8 F 09/12/22 15:49 Pulse Rate 58 L 09/12/22 15:49 Respiratory Rate 17 09/12/22 15:49 Blood Pressure 113/68 09/12/22 15:49 Pulse Oximetry 93 09/12/22 15:49 Oxygen Delivery Me thod 09/12/22 15:49 MDM - Male Medical Decision Making Patient is a nice 72-year-old male who presents to ED today with complaints of gross hematuria. He was found to have a very large intraluminal bladder hematoma. Bladder was irrigated with approximately 5 L of sterile water and urine at this time is still bloody. Dr. Henson evaluated patient in the ED and with a different catheter was able to extract more clot. He is placing patient on CBI and would like to admit him at this time. He is already spoken to the hospitalist. Lab Data 09/11/22 08:32 09/11/22 08:32 Radiology Impressions Abdomen/Pelvis CT 09/11/22 09:16 IMPRESSION: 1. 9 cm intraluminal bladder hematoma. 2. Moderate prostate enlargement. 3. Mild bilateral hydronephrosis and hydroureter is likely related to elevated intravesical pressure. No obstructive stones. 4. Incidental findings above. COMMENTS: Consistent with the [place] [employer]'s Incidental Findings Committee white paper (J Am Vladislav Radiol 2018): Any incidental renal lesion less than 1 cm or classified as too small to characterize, or any incidental cystic renal lesion characterized as simple-appearing, is likely benign. No follow-up imaging is recommended for these lesions per consensus recommendations based on imaging criteria. Chest X-Ray 09/11/22 13:49 Impression: Atherosclerosis and cardiomegaly. Bladder Ultrasound 09/12/22 07:10 IMPRESSION: Small amount of residual clot along the posterior dependent wall of the urinary bladder. Maximum diameter of 11 mm. Laboratory Results WBC 8.2 10^3/uL (4.0-10.0) 09/11/22 08:32 RBC 5.56 10^6/uL (4.1-5.3) H 09/11/22 08:32 Hgb 17.1 g/dL (11.7-16.6) H 09/11/22 08:32 Hct 51.3 % (42.0-52.0) 09/11/22 08:32 MCV 92.3 fl (80-94) 09/11/22 08:32 MCH 30.8 pg (28.0-34.0) 09/11/22 08:32 MCHC 33.3 g/dL (30.0-36.0) 09/11/22 08:32 RDW 12.9 % (12.1-15.1) 09/11/22 08:32 Plt Count 150 10^3/cmm (130-400) 09/11/22 08:32 MPV 9.8 fL (7.4-10.4) 09/11/22 08:32 Neut % (Auto) 69.4 % 09/11/22 08:32 Lymph % (Auto) 19.8 % 09/11/22 08:32 Carbon % (Auto) 7.4 % 09/11/22 08:32 Eos % (Auto) 2.3 % 09/11/22 08:32 Baso % (Auto) 0.7 % 09/11/22 08:32 Neut # (Auto) 5.72 10^3/uL (1.8-7.7) 09/11/22 08:32 Lymph # (Auto) 1.6 10^3/uL (0.8-4.8) 09/11/22 08:32 Carbon # (Auto) 0.6 10^3/uL (0.2-0.9) 09/11/22 08:32 Eos # (Auto) 0.2 10^3/uL (0.0-0.8) 09/11/22 08:32 Baso # (Auto) 0.1 10^3/uL (0.0-0.1) 09/11/22 08:32 Nucleated RBC % (auto) 0 % 09/11/22 08:32 Nucleated RBCs # 0.0 /100WBC 09/11/22 08:32 Sodium 138 mmol/L (136-145) 09/11/22 08:32 Potassium 4.5 mmol/L (3.5-5.1) 09/11/22 08:32 Chloride 103 mmol/L (98-107) 09/11/22 08:32 Carbon Dioxide 22 mmol/L (22-29) 09/11/22 08:32 Anion Gap 17.5 (5-19) 09/11/22 08:32 BUN 23 mg/dL (8-23) 09/11/22 08:32 Creatinine 1.6 mg/dL (0.7-1.2) H 09/11/22 08:32 GFR Calculation Not Reportable 09/11/22 08:32 Glucose 213 mg/dL (65-115) H 09/11/22 08:32 Calculated Osmolality 296 mOsm/kg (285-295) H 09/11/22 08:32 Calcium 9.9 mg/dL (8.5-10.5) 09/11/22 08:32 Total Bilirubin 0.6 mg/dL (0.15-1.2) 09/11/22 08:32 AST 15 U/L (0-40) 09/11/22 08:32 ALT 18 U/L (0-41) 09/11/22 08:32 Alkaline Phosphatase 82 U/L (40-130) 09/11/22 08:32 Total Protein 7.0 g/dL (6.6-8.7) 09/11/22 08:32 Albumin 4.1 g/dL (3.5-5.2) 09/11/22 08:32 Globulin 2.9 g/dL (1.3-4.6) 09/11/22 08:32 Urine Color Yellow (Yellow) 09/11/22 07:36 Urine Appearance Bloody (CLEAR) A 09/11/22 07:36 Urine pH 7 (5-7) 09/11/22 07:36 Ur Specific [place] 1.010 (1.005-1.030) 09/11/22 07:36 Urine Protein 3+ (Negative) H 09/11/22 07:36 Urine Glucose (UA) 4+ (Normal) H 09/11/22 07:36 Urine Ketones Negative (Negative) 09/11/22 07:36 Urine Blood 3+ (Negative) H 09/11/22 07:36 Urine Nitrate Negative (Negative) 09/11/22 07:36 Urine Bilirubin Neg (Negative) 09/11/22 07:36 Urine Urobilinogen Norm mg/dL (Negative) 09/11/22 07:36 Ur Leukocyte Esterase Negative (Negative) 09/11/22 07:36 Urine RBC Too numerous to cnt /hpf (0-2) H 09/11/22 07:36 Urine WBC 5-10 /hpf (0-5) H 09/11/22 07:36 Ur Squamous Epith Cells 0-4 /hpf (0-5) H 09/11/22 07:36 Amorphous Sediment Not Reportable 09/11/22 07:36 Urine Bacteria Trace /hpf (NONE) 09/11/22 07:36 Discharge Plan Discharge Patient Disposition: Placed in Observation Admit Provider: Cresencio Henson Clinical Impression: Clot retention of urine Discharge Diet: Usual diet Discharge Activity: Limit activity as instructed Coding Level of Care Code ED Pediatric Physiatrist for Chg Fwd Documented by User: Leonel Bender MD 09/24/22 21:22 HPI - Male Genitourinary General: Chief complaint: Urogenital-Male Stated complaint: urinating blood Time Seen by Provider: 09/11/22 07:41 PFSH ED PFSH: Medical History (Updated 09/13/22 @ 00:00 by LIBBY [place]) BPH NOS w ur obs/LUTS Transurethral section of the prostate gland November 2019 with excellent response. Erectile dysfunction Gross hematuria Hyperlipidemia Hypertension Major depression Obstructive sleep apnea Osteoarthritis Recurrent deep vein thrombosis of left lower extremity Type 2 diabetes mellitus Surgical History H/O arthroscopy of knee right H/O carpal tunnel repair bilateral History of cataract extraction Bilateral cataract surgery and bilateral Lasik surgery Hx of shoulder surgery bilateral S/P TURP (status post transurethral resection of prostate) Family History Father , at age 85 No problems noted. Mother , at age 78 Cancer pancreatic Other CAD (coronary artery disease) Diabetes Hypertension Social History Smoking and tobacco status: former smoker (smoked x 35 years) Alcohol intake: never Marital status: Current occupational status: retired Course Vital Signs: Vital signs: Vital Signs Temperature 98.8 F 09/12/22 15:49 Pulse Rate 58 L 09/12/22 15:49 Respiratory Rate 17 09/12/22 15:49 Blood Pressure 113/68 09/12/22 15:49 Pulse Oximetry 93 09/12/22 15:49 Oxygen Delivery Me thod 09/12/22 15:49 [facility] - Male Medical Decision Making Patient is a nice 72-year-old male who presents to ED today with complaints of gross hematuria. He was found to have a very large intraluminal bladder hematoma. Bladder was irrigated with approximately 5 L of sterile water and urine at this time is still bloody. Dr. Henson evaluated patient in the ED and with a different catheter was able to extract more clot. He is placing patient on CBI and would like to admit him at this time. He is already spoken to the hospitalist. I discussed this patient with NIKKI Abarca. I reviewed documentation. Leonel Bender MD Emergency Medicine Lab Data 09/11/22 08:32 09/11/22 08:32 Radiology Impressions Abdomen/Pelvis CT 09/11/22 09:16 IMPRESSION: 1. 9 cm intraluminal bladder hematoma. 2. Moderate prostate enlargement. 3. Mild bilateral hydronephrosis and hydroureter is likely related to elevated intravesical pressure. No obstructive stones. 4. Incidental findings above. COMMENTS: Consistent with the [place] [employer]'s Incidental Findings Committee white paper (J Am Vladislav Radiol 2018): Any incidental renal lesion less than 1 cm or classified as too small to characterize, or any incidental cystic renal lesion characterized as simple-appearing, is likely benign. No follow-up imaging is recommended for these lesions per consensus recommendations based on imaging criteria. Chest X-Ray 09/11/22 13:49 Impression: Atherosclerosis and cardiomegaly. Bladder Ultrasound 09/12/22 07:10 IMPRESSION: Small amount of residual clot along the posterior dependent wall of the urinary bladder. Maximum diameter of 11 mm. Laboratory Results WBC 8.2 10^3/uL (4.0-10.0) 09/11/22 08:32 RBC 5.56 10^6/uL (4.1-5.3) H 09/11/22 08:32 Hgb 17.1 g/dL (11.7-16.6) H 09/11/22 08:32 Hct 51.3 % (42.0-52.0) 09/11/22 08:32 MCV 92.3 fl (80-94) 09/11/22 08:32 MCH 30.8 pg (28.0-34.0) 09/11/22 08:32 MCHC 33.3 g/dL (30.0-36.0) 09/11/22 08:32 RDW 12.9 % (12.1-15.1) 09/11/22 08:32 Plt Count 150 10^3/cmm (130-400) 09/11/22 08:32 MPV 9.8 fL (7.4-10.4) 09/11/22 08:32 Neut % (Auto) 69.4 % 09/11/22 08:32 Lymph % (Auto) 19.8 % 09/11/22 08:32 Carbon % (Auto) 7.4 % 09/11/22 08:32 Eos % (Auto) 2.3 % 09/11/22 08:32 Baso % (Auto) 0.7 % 09/11/22 08:32 Neut # (Auto) 5.72 10^3/uL (1.8-7.7) 09/11/22 08:32 Lymph # (Auto) 1.6 10^3/uL (0.8-4.8) 09/11/22 08:32 Carbon # (Auto) 0.6 10^3/uL (0.2-0.9) 09/11/22 08:32 Eos # (Auto) 0.2 10^3/uL (0.0-0.8) 09/11/22 08:32 Baso # (Auto) 0.1 10^3/uL (0.0-0.1) 09/11/22 08:32 Nucleated RBC % (auto) 0 % 09/11/22 08:32 Nucleated RBCs # 0.0 /100WBC 09/11/22 08:32 Sodium 138 mmol/L (136-145) 09/11/22 08:32 Potassium 4.5 mmol/L (3.5-5.1) 09/11/22 08:32 Chloride 103 mmol/L (98-107) 09/11/22 08:32 Carbon Dioxide 22 mmol/L (22-29) 09/11/22 08:32 Anion Gap 17.5 (5-19) 09/11/22 08:32 BUN 23 mg/dL (8-23) 09/11/22 08:32 Creatinine 1.6 mg/dL (0.7-1.2) H 09/11/22 08:32 GFR Calculation Not Reportable 09/11/22 08:32 Glucose 213 mg/dL (65-115) H 09/11/22 08:32 Calculated Osmolality 296 mOsm/kg (285-295) H 09/11/22 08:32 Calcium 9.9 mg/dL (8.5-10.5) 09/11/22 08:32 Total Bilirubin 0.6 mg/dL (0.15-1.2) 09/11/22 08:32 AST 15 U/L (0-40) 09/11/22 08:32 ALT 18 U/L (0-41) 09/11/22 08:32 Alkaline Phosphatase 82 U/L (40-130) 09/11/22 08:32 Total Protein 7.0 g/dL (6.6-8.7) 09/11/22 08:32 Albumin 4.1 g/dL (3.5-5.2) 09/11/22 08:32 Globulin 2.9 g/dL (1.3-4.6) 09/11/22 08:32 Urine Color Yellow (Yellow) 09/11/22 07:36 Urine Appearance Bloody (CLEAR) A 09/11/22 07:36 Urine pH 7 (5-7) 09/11/22 07:36 Ur Specific [place] 1.010 (1.005-1.030) 09/11/22 07:36 Urine Protein 3+ (Negative) H 09/11/22 07:36 Urine Glucose (UA) 4+ (Normal) H 09/11/22 07:36 Urine Ketones Negative (Negative) 09/11/22 07:36 Urine Blood 3+ (Negative) H 09/11/22 07:36 Urine Nitrate Negative (Negative) 09/11/22 07:36 Urine Bilirubin Neg (Negative) 09/11/22 07:36 Urine Urobilinogen Norm mg/dL (Negative) 09/11/22 07:36 Ur Leukocyte Esterase Negative (Negative) 09/11/22 07:36 Urine RBC Too numerous to cnt /hpf (0-2) H 09/11/22 07:36 Urine WBC 5-10 /hpf (0-5) H 09/11/22 07:36 Ur Squamous Epith Cells 0-4 /hpf (0-5) H 09/11/22 07:36 Amorphous Sediment Not Reportable 09/11/22 07:36 Urine Bacteria Trace /hpf (NONE) 09/11/22 07:36 Discharge Plan Discharge Patient Disposition: Placed in Observation Admit Provider: Cresencio Henson Clinical Impression: Clot retention of urine Discharge Diet: Usual diet Discharge Activity: Limit activity as instructed Coding Level of Care Code ED Pediatric Physiatrist for Narendra Matt
[2022-09-11 08:13] LABS: Glucose Urine UA 4+ (Normal); Protein Urine 3+ (Negative); Urine Appearance Bloody (CLEAR); Urine Color Yellow (Yellow); pH Urine 7 (5-7)
[2022-09-11 08:14] LABS: Add Urine Microscopic? YES; Bilirubin Urine Neg (Negative); Blood Urine 3+ (Negative); Ketones Urine Negative (Negative); Leukocyte Esterase Urine Negative (Negative); Nitrate Urine Negative (Negative); Urobilinogen Urine Norm (Negative)
[2022-09-11 08:15] LABS: Add Urine Culture? Yes; Bacteria Urine TRACE /hpf; RBC Urine TOO NUMEROUS TO CNT /hpf (0-2); Squamous Epithelial Cell Urine 0-4 /hpf (0-5)
[2022-09-11 08:49] LABS: Basophils # 0.1 10^3/uL (0.0-0.1); Basophils % 0.7 %; Eosinophils # 0.2 10^3/uL (0.0-0.8); Eosinophils % 2.3 %; Hematocrit 51.3 % (42.0-52.0); Hemoglobin 17.1 g/dL (11.7-16.6); Lymphocytes # 1.6 10^3/uL (0.8-4.8); Lymphocytes % 19.8 %; Mean Corpuscular HGB Conc 33.3 g/dL (30.0-36.0); Mean Corpuscular Hemoglobin 30.8 pg (28.0-34.0); Mean Corpuscular Volume 92.3 fl (80-94); Mean Platelet Volume 9.8 fL (7.4-10.4); Monocytes # 0.6 10^3/uL (0.2-0.9); Monocytes % 7.4 %; Neutrophils # 5.72 10^3/uL (1.8-7.7); Neutrophils % 69.4 %; Nucleated Red Blood Cells % 0 %; Platelet Count 150 10^3/cmm (130-400); Red Blood Count 5.56 10^6/uL (4.1-5.3); Red Cell Distribution Width 12.9 % (12.1-15.1); White Blood Count 8.2 10^3/uL (4.0-10.0)
[2022-09-11 09:00] LABS: Alanine Aminotransferase 18 U/L (0-41); Albumin Level 4.1 g/dL (3.5-5.2); Alkaline Phosphatase 82 U/L (40-130); Anion Gap 17.5 (5-19); Aspartate Amino Transferase 15 U/L (0-40); Blood Urea Nitrogen 23 mg/dL (8-23); Calcium 9.9 mg/dL (8.5-10.5); Carbon Dioxide 22 mmol/L (22-29); Chloride 103 mmol/L (98-107); Globulin 2.9 g/dL (1.3-4.6); Glucose 213 mg/dL (65-115); Osmolality Calculated 296 mOsm/kg (285-295); Potassium 4.5 mmol/L (3.5-5.1); Sodium 138 mmol/L (136-145); Total Bilirubin 0.6 mg/dL (0.15-1.2)
--- NOTE | 2022-09-11 09:16 | CTR_ITS ---
PROCEDURE INFORMATION: Exam: CT Abdomen And Pelvis Without Contrast Exam date and time: 09/11/2022 9:24 AM Age: 72 years old Clinical indication: Abdominal pain; Flank; Left; Prior surgery; Surgery type: Prostate Other procedure information: ; Additional info: L back pain, gross hematuria TECHNIQUE: Imaging protocol: Computed tomography of the abdomen and pelvis without contrast. Radiation optimization: All CT scans at this facility use at least one of these dose optimization techniques: automated exposure control; mA and/or kV adjustment per patient size (includes targeted exams where dose is matched to clinical indication); or iterative reconstruction. REPORTING DATA: Count of CT and Cardiac NM exams in prior 12 months: This patient has received 2 known CTs and 0 known cardiac nuclear medicine studies in the 12 months prior to the current study. COMPARISON: CT abdomen pelvis wo con [id number] 03/25/2022 9:43 AM RADIATION DOSE METRICS: Total DLP (mGy-cm): 1029.82 FINDINGS: Lungs: Lung bases are clear. Liver: The liver is normal. Gallbladder and bile ducts: The gallbladder is normal. There is no biliary dilation. Pancreas: The pancreas is unremarkable. Spleen: The spleen is unremarkable. Adrenal glands: The adrenal glands are unremarkable. Kidneys and ureters: Mild left hydronephrosis and diffuse hydroureter. No stones. Mild right hydronephrosis and diffuse hydroureter. Solitary punctate 1 mm stone in the right renal collecting system. No ureteral stones. Mild bilateral renal atrophy. 5.1 cm simple parapelvic cyst in the left kidney. Stomach and bowel: The stomach is decompressed, preventing meaningful evaluation of wall thickness. The small bowel is nondilated. There is moderate sigmoid colonic diverticulosis without evidence of diverticulitis. Appendix: No evidence of appendicitis. Intraperitoneal space: There is no free air or significant intraperitoneal free fluid. Vasculature: There is moderate aortic atherosclerotic disease. Lymph nodes: There is no lymphadenopathy in the retroperitoneum, mesentery, pelvis or inguinal regions. Urinary bladder: 9.5 x 4.9 cm irregular high attenuation mass in the urinary bladder consistent with a hematoma. Bladder is mildly distended. The wall is thin. Reproductive: There is nonspecific moderate enlargement of the prostate gland. Bones/joints: There is moderate degenerative disease in the lumbar spine. Bone island the left aspect of the sacrum. Soft tissues: There are small bilateral fat containing inguinal hernias. CT/CT kidney stone [id number] IMPRESSION: 1. 9 cm intraluminal bladder hematoma. 2. Moderate prostate enlargement. 3. Mild bilateral hydronephrosis and hydroureter is likely related to elevated intravesical pressure. No obstructive stones. 4. Incidental findings above. COMMENTS: Consistent with the [employer]'s Incidental Findings Committee white paper (J Am Vladislav Radiol 2018): Any incidental renal lesion less than 1 cm or classified as too small to characterize, or any incidental cystic renal lesion characterized as simple-appearing, is likely benign. No follow-up imaging is recommended for these lesions per consensus recommendations based on imaging criteria.
[2022-09-11] MEDS: ondansetron 2 mg/ML SDV 2 mL 4 MG IM (10:00)
[2022-09-11] MEDS: morphine 4 mg/mL SDV 1 mL IM (10:01)
[2022-09-11] MEDS: morphine 4 mg/mL SDV 1 mL IVP (11:01)
--- NOTE | 2022-09-11 11:15 | PC.PHAR ---
pt states he takes care of his own medications-pt states he takes finasteride 5mg qam humana and vinay norrisbasilio hasnt filled this medication for the pt-xanax 0.5mg bid prn filled apr 2017 pt states takes 1 tab hs prn-ambien last filled 11/2016 pt states takes prn-pt states doesnt think he takes valsartan 80mg humana last filled 40mg daily aug 2017-pt states he doesnt have any ultram 50mg q8h prn must last 30 days filled 08/01/22 30d/s no refills or percocet 5/325mg 1 tabs q6h prn filled 08/16/22 3d/s-notes are made in the pharmacy comments
[2022-09-11] MEDS: fentaNYL 50 mcg/mL INJ 2mL IVP (11:32)
--- NOTE | 2022-09-11 13:10 | P.HP_ITS ---
Providers/Chief Complaint Primary Care Provider: NORA Tucker Chief Complaint: urinating blood History of Present Illness Landen Romero is a 72 year old male well-known to me for history of BPH/transurethral resection/vaporization of the prostate with intermittent gross hematuria. Has had 1 episode of clot retention previously requiring manual irrigation but cleared spontaneously with clot evacuation. Presented to the emergency department with development of acute urinary retention and grossly bloody urine of abrupt onset last night. Was quite uncomfortable. CT scan was performed that showed a large clot in the bladder. No other gross abnormality was identified. Clots could not be adequately cleared with a routine three-way [address] [place] catheter and I placed a [address] [place] Couvelaire three-way catheter and manually irrigated with about 2 L of sterile water and cleared out quite a bit of clot. Was not completely sure that all the clot had been cleared though but could not get any more out at that point and CBI was started and maintained clear urine with minimal flow. He was admitted for further evaluation and treatment. Medicine/hospitalist consultation was requested for assistance with medical management He will be kept n.p.o. for now until we are clear that he will not require surgical intervention. His longstanding anticoagulants (ELIQUIS) was held. Review of Systems Const: Denies: fever(s) or chills Eyes: Denies: change in vision or blurry vision ENMT: Denies: odynophagia or hoarseness Card: Denies: chest pain or palpitations Resp: Denies: dyspnea, productive cough, non-productive cough or wheezing GI: Reports: abdominal pain (Suprapubic fullness); Denies: nausea or vomiting : Reports: difficulty urinating, urinary frequency, urinary urgency, urinary hesitancy, urinary dribbling, change in urine stream and hematuria; Denies: flank pain Musc: Denies: back pain, joint redness or joint warmth Skin/Breast: Denies: rash or jaundice Psych: Denies: depression, memory loss or difficulty concentrating Endo: Denies: flushing Luis Alberto/Lymph: Reports: easy bruising and easy bleeding; Denies: enlarged lymph nodes All/Imm: Denies: acute wheezing Medications/Allergies Home Medications Medication Instructions Recorded Confirmed Last Taken Type alprazolam 0.5 mg tablet 0.5 mg PO BEDTIME PRN Sleep 11/01/19 09/11/22 11/08/19 History canagliflozin 300 mg tablet 300 mg PO QAM 11/01/19 09/11/22 09/11/22 History (Invokana) cetirizine 10 mg capsule 10 mg PO DAILY PRN Allergy Symptoms 11/01/19 09/11/22 03/15/22 History finasteride 5 mg tablet 5 mg PO QAM 11/01/19 09/11/22 09/11/22 History see pharmacy comment metformin 850 mg tablet 850 mg PO BID 11/01/19 09/11/22 09/11/22 History zolpidem 10 mg tablet 10 mg PO BEDTIME PRN Sleep 11/01/19 09/11/22 11/09/19 History apixaban 5 mg tablet (Eliquis) 5 mg PO BID 03/15/22 09/11/22 09/11/22 History cholecalciferol (vitamin D3) 25 25 mcg PO DAILY 03/15/22 09/11/22 03/15/22 History mcg (1,000 unit) tablet (Vitamin D3) memantine 5 mg tablet 5 mg PO BID 03/15/22 09/11/22 09/11/22 History sertraline 100 mg tablet 100 mg PO QAM 03/15/22 09/11/22 09/11/22 History simvastatin 40 mg tablet 40 mg PO QAM 03/15/22 09/11/22 09/11/22 History propranolol 40 mg tablet 40 mg PO BID unknown 04/02/22 09/11/22 09/11/22 History insulin glargine 100 35 unit SUBCUT QAM 08/22/22 09/11/22 09/11/22 History unit-lixisenatide 33 mcg/mL subcutaneous pen (Soliqua 100/33) Allergies Allergy/AdvReac Type Severity Reaction Status Date / Time citalopram Allergy Unknown Verified 09/11/22 07:29 lisinopril Allergy Unknown Verified 09/11/22 07:29 PFSH Acute PFSH: Medical History (Updated 09/12/22 @ 07:19 by Cresencio Henson MD) BPH NOS w ur obs/LUTS Transurethral section of the prostate gland November 2019 with excellent response. Erectile dysfunction Gross hematuria Hyperlipidemia Hypertension Major depression Obstructive sleep apnea Osteoarthritis Recurrent deep vein thrombosis of left lower extremity Type 2 diabetes mellitus Surgical History H/O arthroscopy of knee right H/O carpal tunnel repair bilateral History of cataract extraction Bilateral cataract surgery and bilateral Lasik surgery Hx of shoulder surgery bilateral S/P TURP (status post transurethral resection of prostate) Family History Father , at age 85 No problems noted. Mother , at age 78 Cancer pancreatic Other CAD (coronary artery disease) Diabetes Hypertension Social History Smoking and tobacco status: former smoker (smoked x 35 years) Alcohol intake: never Marital status: Current occupational status: retired Vitals/I&O/Wt Last Vital Signs Temp 97.4 F L 09/11/22 07:30 Pulse 68 09/11/22 12:07 Resp 14 09/11/22 12:07 BP 140/87 09/11/22 12:07 Pulse Ox 90 09/11/22 12:07 O2 Del Method 09/11/22 12:07 Weight last 48 hrs Weight 235 lb Physical Exam Const: COMMON NORMALS: no acute distress, alert and well nourished GENERAL APPEARANCE: well kempt and well developed ORIENTATION/CONSCIOUSNESS: not c onfused HENMT: COMMON NORMALS: normocephalic HEAD & SCALP: normal to inspection and normocephalic Eye: COMMON NORMALS: conjunctivae normal and no scleral icterus CONJUNCTIVA: Yes conjunctivae normal Neck/C-Spine: GENERAL: Yes normal visual inspection Lymph: OTHER: No palpable groin lymphadenopathy Chest: OTHER: Normal chest movements Resp: COMMON NORMALS: normal respiratory effort EFFORT & INSPECTION: Yes able to speak in complete sentences, No labored and No Actively coughing Cardio: OTHER: Regular rate and rhythm GI: OTHER: Mild tenderness in the suprapubic area. Bladder feels distended Normoactive bowel sounds, no CVA tenderness : OTHER: Normal male genitalia. Uncircumcised. Some blood at the meatus. Normal scrotum. Back/Pelvis: OTHER: No CVA tenderness Extremity: COMMON NORMALS: no clubbing, cyanosis or edema Neuro: COMMON NORMALS: no focal motor deficits SENSORIUM/ORIENTATION: Yes alert Psych: COMMON NORMALS: mental status grossly normal APPEARANCE: Yes grossly normal and Yes well kempt ATTITUDE: Yes calm and Yes engaged Skin: COMMON NORMALS: no rashes or lesions noted and no jaundice GENERAL SKIN EXAM: no rashes or lesions noted Urinary Catheter Management: 3-way Urethral CBI: Cath Placed During This Visit: yes Urinary Catheter Date of Insertion: 09/11/22 Data 09/11/22 08:32 09/11/22 08:32 CT Abd/Pel: My impression: I personally reviewed the CT scan. There is no evidence of upper urinary tract neoplastic process to account for the bleeding. His bladder is distended with a large clot in it. He does have some prostatic enlargement but less than he had previously on CT scan before TURP A&P Assessment and plan (1) Clot retention of urine: Acute urinary retention secondary to bleeding in the bladder. Probably prostatic source. (2) Recurrent deep vein thrombosis of left lower extremity: (3) Chronic anticoagulation: Eliquis has been held (4) Type 2 diabetes mellitus: Plan 1. Consult hospitalist service for medical management. Their assistance and medical care is greatly appreciated. 2. Manual irrigation as needed and continue CBI. Reviewed with nursing staff in detail 3. Consider operative intervention for clot evacuation if cannot completely clear 4. Consider bedside cystoscopy pending results of the above. Attestations Medical Necessity Statement*: Clot urinary retention. CBI required. Cannot manage either of these at home. Coding Level of Care Code Acute Code for [facility]g Fwd Diagnoses Clot retention of urine R33.8 Recurrent deep vein thrombosis of left lower extremity I82.402 Chronic anticoagulation Z79.01 Type 2 diabetes mellitus E11.9
--- NOTE | 2022-09-11 13:19 | USCV_ITS ---
Landen Romero Age: 72 Gender: M : 1950 Exam Date: 09/11/2022 14:14 Ordering Phys: Carlos Alberto Pond MD Technologist: GARCIA Exam Location: [facility] – [place], [place]_ Indication: KNOWN H/O LLE DVT HISTORY: DVT. PROCEDURES: Venous duplex imaging was performed in only the left lower extremity. The following venous structures were evaluated: common femoral vein, profunda vein, proximal portion of the greater saphenous vein, superficial femoral vein, and the popliteal vein. In addition, the posterior tibial and peroneal trunk were evaluated. Serial compression, augmentation maneuvers, and spectral Doppler flow evaluation were performed. FINDINGS: + Chronic DVT seen in Left Perfunda, FV Prox-Dist, POP V, and PTV CONCLUSIONS Chronic DVT in the left femoral vein, profunda, popliteal and posterior tibial veins. No new or progressive DVT since 03/2022 Jeff Jean MD (Electronically Signed) Final Date: 11 September 2022 16:46 S
--- NOTE | 2022-09-11 13:49 | XR_ITS ---
WS: [id number] Portable AP upright chest, 09/11/2022 Clinical Data: smoking hx Comparison: None. Findings: No nodules, masses or effusions are seen. The heart is slightly enlarged. The pulmonary vas cularity is not increased. No pneumonia or pneumothorax is seen. The aortic arch and descending thora cic aorta show tortuosity. There is an old left rib fracture. There are monitor leads on the chest wa ll. XR/XR chest 1V portable [id number] Impression: Atherosclerosis and cardiomegaly.
--- NOTE | 2022-09-11 13:50 | P.CONIM_ITS ---
Providers/Reason For Consult Consulting Physician/Specialty*: Urology Reason for Consult*: Medical management Primary Care Provider: NORA Tucker History of Present Illness History of Present Illness Landen Romero is a 72 year old male this is a 72-year-old male with a past medical history of polycythemia, persistent left lower extremity DVT on Eliquis, hypertension, hyperlipidemia, insulin-dependent type 2 diabetes mellitus, history of BPH status post TURP who presents [facility] due to hematuria. Patient reports hematuria that began early this morning, he has some suprapubic pressure, dysuria, denies any previous history. He does have a history of BPH status post TURP. He does have a history of polycythemia of unknown etiology. He does report a history of smoking, but has quit for over 14 years. He has a left lower extremity DVT that has been present since 2020, for which he was placed back on anticoagulation in March 2022, currently on Eliquis. Review of Systems Const: Denies: fever(s) or chills Card: Denies: chest pain Resp: Denies: dyspnea GI: Reports: abdominal pain : Denies: flank pain, difficulty urinating or dysuria Skin/Breast: Denies: rash Neuro: Denies: headache(s) Psych: Denies: anxiety Endo: Denies: polyuria Luis Alberto/Lymph: Denies: easy bruising Medications/Allergies Home Medications Medication Instructions Recorded Confirmed Last Taken Type alprazolam 0.5 mg tablet 0.5 mg PO BEDTIME PRN Sleep 11/01/19 09/11/22 11/08/19 History canagliflozin 300 mg tablet 300 mg PO QAM 11/01/19 09/11/22 09/11/22 History (Invokana) cetirizine 10 mg capsule 10 mg PO DAILY PRN Allergy Symptoms 11/01/19 09/11/22 03/15/22 History finasteride 5 mg tablet 5 mg PO QAM 11/01/19 09/11/22 09/11/22 History see pharmacy comment metformin 850 mg tablet 850 mg PO BID 11/01/19 09/11/22 09/11/22 History zolpidem 10 mg tablet 10 mg PO BEDTIME PRN Sleep 11/01/19 09/11/22 11/09/19 History apixaban 5 mg tablet (Eliquis) 5 mg PO BID 03/15/22 09/11/22 09/11/22 History cholecalciferol (vitamin D3) 25 25 mcg PO DAILY 03/15/22 09/11/22 03/15/22 History mcg (1,000 unit) tablet (Vitamin D3) memantine 5 mg tablet 5 mg PO BID 03/15/22 09/11/22 09/11/22 History sertraline 100 mg tablet 100 mg PO QAM 03/15/22 09/11/22 09/11/22 History simvastatin 40 mg tablet 40 mg PO QAM 03/15/22 09/11/22 09/11/22 History propranolol 40 mg tablet 40 mg PO BID unknown 04/02/22 09/11/22 09/11/22 History insulin glargine 100 35 unit SUBCUT QAM 08/22/22 09/11/22 09/11/22 History unit-lixisenatide 33 mcg/mL subcutaneous pen (Soliqua 100/33) Allergies Allergy/AdvReac Type Severity Reaction Status Date / Time citalopram Allergy Unknown Verified 09/11/22 07:29 lisinopril Allergy Unknown Verified 09/11/22 07:29 PFSH Acute PFSH: Medical History BPH NOS w ur obs/LUTS Transurethral section of the prostate gland November 2019 with excellent response. Erectile dysfunction Gross hematuria Hyperlipidemia Hypertension Major depression Obstructive sleep apnea Osteoarthritis Recurrent deep vein thrombosis of left lower extremity Type 2 diabetes mellitus Surgical History H/O arthroscopy of knee right H/O carpal tunnel repair bilateral History of cataract extraction Bilateral cataract surgery and bilateral Lasik surgery Hx of shoulder surgery bilateral S/P TURP (status post transurethral resection of prostate) Family History Father , at age 85 No problems noted. Mother , at age 78 Cancer pancreatic Other CAD (coronary artery disease) Diabetes Hypertension Social History Smoking and tobacco status: former smoker (smoked x 35 years) Alcohol intake: never Marital status: Current occupational status: retired Vitals/I&O/Wt Last Vital Signs Temp 97.4 F L 09/11/22 07:30 Pulse 68 09/11/22 12:07 Resp 14 09/11/22 12:07 BP 140/87 09/11/22 12:07 Pulse Ox 90 09/11/22 12:07 O2 Del Method 09/11/22 12:07 Weight last 48 hrs Weight 106.594 kg Physical Exam Const: COMMON NORMALS: no acute distress and patient oriented x3 HENMT: COMMON NORMALS: normocephalic HEAD & SCALP: normocephalic Eye: COMMON NORMALS: Equal, round and reactive pupils present and EOMs intact bilaterally PUPIL: Yes Equal, round and reactive pupils present Neck/C-Spine: COMMON NORMALS: full ROM and no lymphadenopathy Resp: COMMON NORMALS: normal respiratory effort, No retractions, No use of accessory muscles and clear to auscultation bilaterally AUSCULTATION: clear to auscultation bilaterally Cardio: COMMON NORMALS: regular rate, regular rhythm, S1 normal heart sound present and S2 normal heart sound present RATE: regular rate RHYTHM: regular rhythm HEART SOUNDS: S1 normal heart sound present and S2 normal heart sound present GI: COMMON NORMALS: Normal to inspection, nondistended, normoactive bowel sounds present, non-tender, no masses and no bruits Extremity: COMMON NORMALS: no pedal edema Neuro: COMMON NORMALS: patient oriented x3, CN's II-XII intact bilaterally and moves all extremities Psych: COMMON NORMALS: mental status grossly normal Urinary Catheter Management: 3-way Urethral CBI: Cath Placed During This Visit: yes Urinary Catheter Date of Insertion: 09/11/22 Data 09/11/22 08:32 09/11/22 08:32 A&P Assessment and plan (1) BPH NOS w ur obs/LUTS: (2) Polycythemia: (3) Recurrent deep vein thrombosis of left lower extremity: (4) Hematuria: (5) DEWAYNE (acute kidney injury): (6) Insulin dependent type 2 diabetes mellitus: Plan Hematuria -Currently receiving continuous bladder irrigation -Anticoagulation currently on hold -Currently n.p.o. -Urology on consult -Full code -SCDs for DVT prophylaxis Has a chronic left lower extremity DVT -Is on Eliquis -We will repeat venous ultrasound -If he needs to be off anticoagulation for some period of time given his hematuria above, we will have to consider IVC filter placement Type 2 diabetes mellitus, moderate dose sliding scale Hypertension, monitor Hyperlipidemia, monitor DEWAYNE, IV fluids Consult Attestations Medical Necessity Statement: Patient requires hospitalization, for hematuria, with left lower extremity DVT Diagnoses BPH NOS w ur obs/LUTS N40.1 Polycythemia D75.1 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
[2022-09-11] MEDS: sodium chloride 0.45% 1,000 ML 75 ML IV (17:26)
[2022-09-11 17:31] LABS: Glucose Point of Care 135 mg/dL (70-110)
[2022-09-11] MEDS: memantine 5 mg tablet PO (17:35)
--- NOTE | 2022-09-11 18:38 | PC.NURSE ---
Since patient arrived from ER at approximately 1630 he has had 3L infused through CBI that was hung in ER and finished on med-surg and 2850ml of light pink output with scant stringy appearing clots.
[2022-09-11 22:13] LABS: Glucose Point of Care 87 mg/dL (70-110)
[2022-09-12 03:53] LABS: Basophils # 0.1 10^3/uL (0.0-0.1); Basophils % 0.6 %; Eosinophils # 0.1 10^3/uL (0.0-0.8); Eosinophils % 1.5 %; Hematocrit 45.9 % (42.0-52.0); Lymphocytes # 1.8 10^3/uL (0.8-4.8); Mean Corpuscular HGB Conc 32.7 g/dL (30.0-36.0); Mean Corpuscular Hemoglobin 30.6 pg (28.0-34.0); Mean Corpuscular Volume 93.7 fl (80-94); Mean Platelet Volume 9.5 fL (7.4-10.4); Monocytes # 0.7 10^3/uL (0.2-0.9); Monocytes % 8.2 %; Neutrophils % 69.4 %; Nucleated Red Blood Cells % 0 %; Platelet Count 133 10^3/cmm (130-400); Red Cell Distribution Width 13.2 % (12.1-15.1); White Blood Count 8.9 10^3/uL (4.0-10.0)
[2022-09-12 04:00] VITALS: BP 103/66; PULSE 61; RESP 15; TEMP 37; O2SAT 94
[2022-09-12 04:07] LABS: Anion Gap 16.9 (5-19); Blood Urea Nitrogen 19 mg/dL (8-23); Calcium 8.9 mg/dL (8.5-10.5); Carbon Dioxide 22 mmol/L (22-29); Chloride 105 mmol/L (98-107); Glucose 117 mg/dL (65-115); Osmolality Calculated 293 mOsm/kg (285-295); Potassium 3.9 mmol/L (3.5-5.1); Sodium 140 mmol/L (136-145)
[2022-09-12] MEDS: sertraline 100 mg Tablet PO (05:13)
[2022-09-12] MEDS: finasteride 5 mg Tablet PO (05:14)
[2022-09-12] MEDS: sodium chloride 0.45% 1,000 ML 75 ML IV (05:14)
[2022-09-12] MEDS: atorvastatin 40 mg Tablet 20 MG PO (05:14)
[2022-09-12 06:50] LABS: Glucose Point of Care 129 mg/dL (70-110)
--- NOTE | 2022-09-12 07:10 | US_ITS ---
WS: [id number] URINARY BLADDER ULTRASOUND HISTORY: Clot retention COMPARISON: None available. Only minimal distention of the urinary bladder. There is mild asymmetric thickening along the posteri or urinary bladder wall which is likely the residual of a small hematoma measuring up to 11 mm. This is asymmetric to the anterior bladder wall and suspicious for retained clot. There is a Bella cathete r in place. US/US bladder [id number] IMPRESSION: Small amount of residual clot along the posterior dependent wall of the urinary bladder. Maximum diameter of 11 mm.
--- NOTE | 2022-09-12 07:22 | P.PN_ITS ---
Subjective Subjective: Urology follow-up: Hospital day #2. CBI continued overnight with no difficulty with severe bleeding. Denies any clots with manual irrigation. Urine this morning looks clear. Denies any other symptoms of shortness of breath chest pains etc. Eliquis being held. Appreciate hospitalist service assistance with nonurologic medical management. Vitals/I&O/Wt Last Vital Signs Temp 98.6 F 09/12/22 04:00 Pulse 61 09/12/22 04:00 Resp 15 09/12/22 04:00 BP 103/66 09/12/22 04:00 Pulse Ox 94 09/12/22 04:00 O2 Del Method 09/12/22 04:00 09/11/22 09/12/22 09/12/22 22:59 06:59 14:59 Intake Total 0 / 0 885 / 885 Output Total 1600 / 1600 Balance -1600 / -1600 885 / -715 Weight last 48 hrs Weight 235 lb Physical Exam Narrative: Alert oriented no acute distress Pleasant cooperative throughout exam Neck good range of motion Respiration: Nonlabored. Good air movement. No wheezes Abdomen is soft : Catheter is draining well and urine is clear with fairly low flow CBI Tremor good range of motion Psychiatric: Normal rotation Neurologic no focal deficits Urinary Catheter Management: 3-way Urethral CBI: Cath Placed During This Visit: yes Reason for Continuing Indwelling Catheter: Other Urinary Catheter Date of Insertion: 09/11/22 Data 09/12/22 03:41 09/12/22 03:41 A&P Assessment and plan (1) Clot retention of urine: Assess for residual clot in the bladder today with ultrasound (2) Type 2 diabetes mellitus: Managed by hospitalist service (3) Hematuria: Much improved (4) Recurrent deep vein thrombosis of left lower extremity: On chronic Eliquis therapy. He estimates that the DVT occurred about 18 months ago (5) Chronic anticoagulation: Holding Eliquis Attestations Medical Necessity Statement*: Will wean CBI off and assess. Ultrasound of bladder looking for residual clot this morning. Intervention to be determined per those findings Persistent refractory clot would recommend trip to the operating room Consistent carbohydrate clear liquid breakfast. Coding Level of Care Code Acute Code for [facility] Fwd Diagnoses Clot retention of urine R33.8 Type 2 diabetes mellitus E11.9 Hematuria R31.9 Recurrent deep vein thrombosis of left lower extremity I82.402 Chronic anticoagulation Z79.01
[2022-09-12 07:58] VITALS: BP 111/67; PULSE 63; RESP 16; TEMP 36.9; O2SAT 96
[2022-09-12] MEDS: memantine 5 mg tablet PO (08:41)
--- NOTE | 2022-09-12 10:17 | PC.CHAP ---
Pastoral Care Encounter/Spiritual Assessment Type of Contact [] Declined respiratory therapist visit [] Patient/Family/Request visit [] Outpatient visit [] Follow-up visit [] Physician referral [] Code/Alert [x] Routine visit [] Staff referral [] Actively dying [] Patient sleeping [] Family support [] [] Out of room [] Palliative care [] [x] Receiving care in room [] Pre-surgical visit [] Trauma [] Long length of stay [] ICU visit [] Other: Relational/Emotional Strength [x] Patient feels connected with others/family/visitors/staff [] Distress [] Loneliness/isolation [] Abandonment Spirituality of Patient [x] Person of Dyan [] Attends Amish of their Dyan [x] Believes in Prayer [] Reads Bible or Gnosticism materials [] There are Spiritual issues to be addressed Cloth Trimmer Hand Interventions [x] Prayer [x] Active listening [x] Non-anxious presence [x] Spiritual/emotional support [] Crisis/trauma care [x] Spiritual counseling [] Bereavement support [] Provided bereavement packet [] Provided Bible/devotional materials [] Provided toy/stuffed animal, coloring book to patient or family member [] Provided Communion [] Anointing/[place] [] Salvation [x] Completed spiritual assessment [] Other: Impact on Illness or Injury [] Angry [] Fearful [] Anxious [] Often cries [] Exhaustion [] Unable to work [] Unable to attend shinto [] Unable to walk/stand [] Unable to read [] Unable to drive [] Unable to eat/drink [] Unable to sleep [] Unable to be with family [] Patient intubated [] Other: Summary senior blood in blader Floods flusing out the system feels good is going home Time spent with patient 10 mins
[2022-09-12 11:28] LABS: Glucose Point of Care 197 mg/dL (70-110)
[2022-09-12 11:56] VITALS: BP 119/78; PULSE 60; RESP 17; TEMP 36.9; O2SAT 94
[2022-09-12] MEDS: insulin lispro 100 unit/1 mL SUBCUT (12:35)
--- NOTE | 2022-09-12 15:06 | PM.PN ---
Subjective Subjective: Patient was seen this morning, he is feeling a bit better, I did discuss with him, about continuing anticoagulation versus holding versus IVC filter placement, he wants to think on it see with Dr. Henson says, he does have persistent DVT in his left lower extremity since March 28, he and he tells me that he is compliant with Eliquis therapy Vitals/I&O/Wt Last Vital Signs Temp 98.4 F 09/12/22 11:56 Pulse 60 09/12/22 11:56 Resp 17 09/12/22 11:56 BP 119/78 09/12/22 11:56 Pulse Ox 94 09/12/22 11:56 O2 Del Method 09/12/22 11:56 09/12/22 09/12/22 09/12/22 06:59 14:59 22:59 Intake Total 885 / 885 720 / 720 Output Total 1400 / 1400 Balance 885 / -715 -680 / -680 Weight last 48 hrs Weight 106.594 kg Physical Exam Const: COMMON NORMALS: no acute distress and patient oriented x3 Resp: COMMON NORMALS: normal respiratory effort, No retractions, No use of accessory muscles and clear to auscultation bilaterally AUSCULTATION: clear to auscultation bilaterally Cardio: COMMON NORMALS: regular rate, regular rhythm, S1 normal heart sound present and S2 normal heart sound present RATE: regular rate RHYTHM: regular rhythm HEART SOUNDS: S1 normal heart sound present and S2 normal heart sound present GI: COMMON NORMALS: Normal to inspection, nondistended, normoactive bowel sounds present and non-tender Extremity: COMMON NORMALS: no pedal edema Neuro: COMMON NORMALS: patient oriented x3 Psych: COMMON NORMALS: mental status grossly normal Urinary Catheter Management: 3-way Urethral CBI: Cath Placed During This Visit: yes Reason for Continuing Indwelling Catheter: Other Urinary Catheter Date of Insertion: 09/11/22 Data 09/12/22 03:41 09/12/22 03:41 Micro: Microbiology 09/11/22 07:36 Urine Culture - Preliminary Urine,Clean Catch Strep species, gamma-hemolytic A&P Assessment and plan (1) BPH NOS w ur obs/LUTS: (2) Polycythemia: (3) 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 -Urology on consult -Full code -SCDs for DVT prophylaxis Has a chronic left lower extremity DVT -Is on Eliquis -Repeat ultrasound shows extensive left lower extremity DVT -If he needs to be off anticoagulation for some period of time given his hematuria above, we will have to consider IVC filter placement or can consider therapeutic Lovenox Type 2 diabetes mellitus, moderate dose sliding scale Hypertension, monitor Hyperlipidemia, monitor DEWAYNE, IV fluids Attestations Medical Necessity Statement*: Patient requires hospitalization for hematuria Diagnoses BPH NOS w ur obs/LUTS N40.1 Polycythemia D75.1 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
[2022-09-12 15:49] VITALS: BP 113/68; PULSE 58; RESP 17; TEMP 37.1; O2SAT 93
--- NOTE | 2022-09-12 17:24 | PM.DCS ---
Discharge Providers Date of Admission: 09/11/22 13:41 Date of Discharge: September 12, 2022 Attending Provider at Admission: Cresencio Henson MD Attending Provider at Discharge: Cresencio Henson MD Consults: Hospitalist service, Dr. Pond Primary Care Provider: NORA Tucker Diagnoses at Discharge Discharge Diagnosis (1) BPH NOS w ur obs/LUTS: Status: Resolved Permanent problem details: Transurethral section of the prostate gland November 2019 with excellent response. 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 Has had 1 episode of clot retention previously requiring manual irrigation but cleared spontaneously with clot evacuation. Presented to the emergency department with development of acute urinary retention and grossly bloody urine of abrupt onset last night.? Was quite uncomfortable. CT scan was performed that showed a large clot in the bladder.? No other gross abnormality was identified. Clots could not be adequately cleared with a routine three-way 24 Khmer catheter and I placed a 24 Khmer Couvelaire? three-way catheter and manually irrigated with about 2 L of sterile water and cleared out quite a bit of clot.? Was not completely sure that all the clot had been cleared though but could not get any more out at that point and CBI was started and maintained clear urine with minimal flow. He was admitted for further evaluation and treatment. Medicine/hospitalist consultation was requested for assistance with medical management He will be kept n.p.o. for now until we are clear that he will not require surgical intervention. His longstanding anticoagulants (ELIQUIS) was held. Hospital Course Hospital Course Once his bladder was cleared of clots in the ER CBI was initiated. It was continued overnight and weaned off on hospital day #2. He was observed with the CBI off for about 6 hours and then because the urine remained clear the catheter was removed and a 6 bottle void was performed that showed clearing of the urine. [place] empty. No difficulty voiding. Good stream. He was deemed a good candidate for further convalescence at home and was discharged on the evening of hospital day #2. We did discuss that his risk of recurrent bleeding with initiation of Eliquis would be high. Reviewed the options which would be to hold the Eliquis for short period of time or consider inferior vena cava filter. In the past he had been off of Eliquis for a week with no problems for an alternative surgery. He elected to hold Eliquis for short-term and consider the inferior vena cava filter on outpatient basis pending how well he does once Eliquis is restarted. Instructed to restart the Eliquis on 09/16/2022 Physical Exam Narrative: Alert oriented no acute distress Pleasant cooperative throughout exam Neck good range of motion Respiration: Nonlabored. Good air movement. No wheezes Abdomen is soft : Urine is clear. Extremities: Good range of motion Psychiatric: Normal rotation Neurologic no focal deficits Urinary Catheter Management: 3-way Urethral CBI: Cath Placed During This Visit: yes Reason for Continuing Indwelling Catheter: Other Urinary Catheter Date of Insertion: 09/11/22 Discharge Data Studies Completed and Pending Completed Studies During Hospitalization Category Date Time Status CT abdomen renal stone [CT kidney stone 09851] Stat Cat Scan 09/11/22 09:16 Completed XR chest 1V portable [id number] Stat Exams 09/11/22 13:49 Completed US bladder 07843 Routine Ultrasound 09/12/22 07:10 Completed US venous duplex lower extremity LT [CV venous duplex Ultrasound 09/11/22 13:19 [place] [id number]] Stat Pending at discharge Category Date Time Status Basic Metabolic Panel AM LABS Lab 09/13/22 04:00 Ordered Basic Metabolic Panel AM LABS Lab 09/14/22 04:00 Ordered Basic Metabolic Panel AM LABS Lab 09/15/22 04:00 Ordered Complete Blood Count w/Auto AM LABS Lab 09/13/22 04:00 Ordered Complete Blood Count w/Auto AM LABS Lab 09/14/22 04:00 Ordered Complete Blood Count w/Auto AM LABS Lab 09/15/22 04:00 Ordered Urine Culture Stat Lab 09/11/22 07:36 Results Radiology Impressions Abdomen/Pelvis CT 09/11/22 09:16 IMPRESSION: 1. 9 cm intraluminal bladder hematoma. 2. Moderate prostate enlargement. 3. Mild bilateral hydronephrosis and hydroureter is likely related to elevated intravesical pressure. No obstructive stones. 4. Incidental findings above. COMMENTS: Consistent with the [employer]'s Incidental Findings Committee white paper (J Am Vladislav Radiol 2018): Any incidental renal lesion less than 1 cm or classified as too small to characterize, or any incidental cystic renal lesion characterized as simple-appearing, is likely benign. No follow-up imaging is recommended for these lesions per consensus recommendations based on imaging criteria. Chest X-Ray 09/11/22 13:49 Impression: Atherosclerosis and cardiomegaly. Bladder Ultrasound 09/12/22 07:10 IMPRESSION: Small amount of residual clot along the posterior dependent wall of the urinary bladder. Maximum diameter of 11 mm. Laboratory Results WBC 8.9 10^3/uL (4.0-10.0) 09/12/22 03:41 RBC 4.90 10^6/uL (4.1-5.3) 09/12/22 03:41 Hgb 15.0 g/dL (11.7-16.6) 09/12/22 03:41 Hct 45.9 % (42.0-52.0) 09/12/22 03:41 MCV 93.7 fl (80-94) 09/12/22 03:41 MCH 30.6 pg (28.0-34.0) 09/12/22 03:41 MCHC 32.7 g/dL (30.0-36.0) 09/12/22 03:41 RDW 13.2 % (12.1-15.1) 09/12/22 03:41 Plt Count 133 10^3/cmm (130-400) 09/12/22 03:41 MPV 9.5 fL (7.4-10.4) 09/12/22 03:41 Neut % (Auto) 69.4 % 09/12/22 03:41 Lymph % (Auto) 20.0 % 09/12/22 03:41 Armstrong % (Auto) 8.2 % 09/12/22 03:41 Eos % (Auto) 1.5 % 09/12/22 03:41 Baso % (Auto) 0.6 % 09/12/22 03:41 Neut # (Auto) 6.20 10^3/uL (1.8-7.7) 09/12/22 03:41 Lymph # (Auto) 1.8 10^3/uL (0.8-4.8) 09/12/22 03:41 Armstrong # (Auto) 0.7 10^3/uL (0.2-0.9) 09/12/22 03:41 Eos # (Auto) 0.1 10^3/uL (0.0-0.8) 09/12/22 03:41 Baso # (Auto) 0.1 10^3/uL (0.0-0.1) 09/12/22 03:41 Nucleated RBC % (auto) 0 % 09/12/22 03:41 Nucleated RBCs # 0.0 /100WBC 09/12/22 03:41 Sodium 140 mmol/L (136-145) 09/12/22 03:41 Potassium 3.9 mmol/L (3.5-5.1) 09/12/22 03:41 Chloride 105 mmol/L (98-107) 09/12/22 03:41 Carbon Dioxide 22 mmol/L (22-29) 09/12/22 03:41 Anion Gap 16.9 (5-19) 09/12/22 03:41 BUN 19 mg/dL (8-23) 09/12/22 03:41 Creatinine 1.6 mg/dL (0.7-1.2) H 09/12/22 03:41 GFR Calculation Not Reportable 09/12/22 03:41 Glucose 117 mg/dL (65-115) H 09/12/22 03:41 POC Glucose 197 mg/dL (70-110) H 09/12/22 11:19 Calculated Osmolality 293 mOsm/kg (285-295) 09/12/22 03:41 Calcium 8.9 mg/dL (8.5-10.5) 09/12/22 03:41 Total Bilirubin 0.6 mg/dL (0.15-1.2) 09/11/22 08:32 AST 15 U/L (0-40) 09/11/22 08:32 ALT 18 U/L (0-41) 09/11/22 08:32 Alkaline Phosphatase 82 U/L (40-130) 09/11/22 08:32 Total Protein 7.0 g/dL (6.6-8.7) 09/11/22 08:32 Albumin 4.1 g/dL (3.5-5.2) 09/11/22 08:32 Globulin 2.9 g/dL (1.3-4.6) 09/11/22 08:32 Urine Color Yellow (Yellow) 09/11/22 07:36 Urine Appearance Bloody (CLEAR) A 09/11/22 07:36 Urine pH 7 (5-7) 09/11/22 07:36 Ur Specific Gary 1.010 (1.005-1.030) 09/11/22 07:36 Urine Protein 3+ (Negative) H 09/11/22 07:36 Urine Glucose (UA) 4+ (Normal) H 09/11/22 07:36 Urine Ketones Negative (Negative) 09/11/22 07:36 Urine Blood 3+ (Negative) H 09/11/22 07:36 Urine Nitrate Negative (Negative) 09/11/22 07:36 Urine Bilirubin Neg (Negative) 09/11/22 07:36 Urine Urobilinogen Norm mg/dL (Negative) 09/11/22 07:36 Ur Leukocyte Esterase Negative (Negative) 09/11/22 07:36 Urine RBC Too numerous to cnt /hpf (0-2) H 09/11/22 07:36 Urine WBC 5-10 /hpf (0-5) H 09/11/22 07:36 Ur Squamous Epith Cells 0-4 /hpf (0-5) H 09/11/22 07:36 Amorphous Sediment Not Reportable 09/11/22 07:36 Urine Bacteria Trace /hpf (NONE) 09/11/22 07:36 Procedures Performed Large bore catheter placement and aggressive bladder irrigation Vitals Last Vital Signs Temp 98.8 F 09/12/22 15:49 Pulse 58 L 09/12/22 15:49 Resp 17 09/12/22 15:49 BP 113/68 09/12/22 15:49 Pulse Ox 93 09/12/22 15:49 O2 Del Method 09/12/22 15:49 Discharge Plan Discharge Patient Disposition: Home Condition: Stable Prescriptions: Continued metformin 850 mg tablet 850 mg PO BID alprazolam 0.5 mg tablet 0.5 mg PO BEDTIME PRN (Reason: Sleep) zolpidem 10 mg tablet 10 mg PO BEDTIME PRN (Reason: Sleep) finasteride 5 mg tablet 5 mg PO QAM cetirizine 10 mg capsule 10 mg PO DAILY PRN (Reason: Allergy Symptoms) Invokana 300 mg tablet 300 mg PO QAM propranolol 40 mg tablet 40 mg PO BID Soliqua 100/33 100 unit-33 mcg/mL insulin pen 35 unit SUBCUT QAM MDD 60 units Rx Instructions: States dose is being adjusted every 4 days sertraline 100 mg tablet 100 mg PO QAM simvastatin 40 mg tablet 40 mg PO QAM memantine 5 mg tablet 5 mg PO BID cholecalciferol (vitamin D3) [Vitamin D3] 25 mcg (1,000 unit) Tablet 25 mcg PO DAILY Held Eliquis 5 mg tablet 5 mg PO BID Hold Instructions: Resume on 09/16/22. Discharge Orders: Discharge Order (Routine); Ordered 09/12/22 Ordered By: Cresencio Henson Referrals: Cresencio Henson MD [Physician] - (We arranged. He is to call next week to let us know how he is doing.) Zuniga,NORA Velez [Primary Care Provider] - 09/20/22 11:00 am (Will see [place] Joshua) Discharge Diet: Usual diet Discharge Activity: Limit activity as instructed Patient Instructions: Hematuria (GEN), Opioid Safety Activity Restrictions/Additional Instructions: Urology instructions: 1. Avoid heavy lifting and straining for at least 7 to 10 days. 2. Restart the Eliquis on 09/16/2022 unless actively bleeding. 3. Please call next week and let us know how you are doing ([phone]) Discharge Attestations Time Spent in Discharge Care*: greater than 30 min Quality Metrics Clinical Quality Measures [ No reported AMI, CVA or VTE this stay] Coding Level of Care Code Acute Code for g Fwd Diagnoses BPH NOS w ur obs/LUTS N40.1 Polycythemia D75.1 Recurrent deep vein thrombosis of left lower extremity I82.402 DEWAYNE (acute kidney injury) N17.9 Insulin dependent type 2 diabetes mellitus E11.9; Z79.4
[2022-09-12 17:38] LABS: Glucose Point of Care 128 mg/dL (70-110)
== END 2022-09-12 18:12 | disposition home or self-care (01) ==
LOC: ER 15:43 → MEDSURG 15:55
PROVIDERS: Family Medicine; Admitting Provider Urology; Emergency Provider Physician Assistant; PCP Nurse Practitioner Family; Visit Provider Urology
DX: N32.89 Other specified disorders of bladder (principal); N40.1 Benign prostatic hyperplasia with lower urinary tract symptoms; R33.8 Other retention of urine; E78.5 Hyperlipidemia, unspecified; I10 Essential (primary) hypertension; F32.9 Major depressive disorder, single episode, unspecified; G47.33 Obstructive sleep apnea (adult) (pediatric); E11.9 Type 2 diabetes mellitus without complications; Z87.891 Personal history of nicotine dependence; I82.512 Chronic embolism and thrombosis of left femoral vein; I82.532 Chronic embolism and thrombosis of left popliteal vein; I82.542 Chronic embolism and thrombosis of left tibial vein; D75.1 Secondary polycythemia; N17.9 Acute kidney failure, unspecified
CPT/HCPCS: 36415; 36416; 51702; 71045; 74176; 76857; 80048; 80053; 81001; 82962; 85025; 87086; 93971; 96361; 96372; 96374; 96375; 99285; G0378; J1815; J2270; J2405; J3010

== ENCOUNTER → 2022-10-10 07:54 | Outpatient (BNVA) | payer MEDICARE, SELFPAY | PROVIDERS: PCP Nurse Practitioner Family; Visit Provider Urology | DX: N52.1 Erectile dysfunction due to diseases classified elsewhere (principal); N40.1 Benign prostatic hyperplasia with lower urinary tract symptoms; R31.0 Gross hematuria | CPT/HCPCS: 51798; 81003; 99213 ==

== ENCOUNTER 2022-10-25 15:03 | Outpatient (CLI) | payer MEDICARE, SELFPAY ==
--- NOTE | 2022-10-25 15:30 | USCV_ITS ---
PakoLanden still Age: 72 Gender: M : 1950 Exam Date: 10/25/2022 15:36 Ordering Phys: Jamel Alan MD (Andy) ([email or web address]) Technologist: RAMILA [place] [facility] [place]: Pre op for IVC filter. Hx of DVT in Lt leg HISTORY: Patient has history of. DVT. PROCEDURES: Comparison:. 09/11/22 Venous duplex imaging was performed in only the right lower extremity. The following venous structures were evaluated: common femoral vein, profunda vein, proximal portion of the greater saphenous vein, superficial femoral vein, and the popliteal vein. In addition, the posterior tibial and peroneal trunk were evaluated. Serial compression, augmentation maneuvers, and spectral Doppler flow evaluation were performed. FINDINGS: Normal 2-D Doppler and augmentation and compressibility throughout the lower extremity venous structures. Additional imaging through the proximal calf veins also reveals no thrombus. Limited evaluation of the greater saphenous vein is patent with no thrombus. CONCLUSIONS No DVT right lower extremity. No residual DVT seen. Dr. Ayaka Solorzano DO (Electronically Signed) Final Date: 25 October 2022 15:56 S
== END 2022-10-25 15:04 | disposition home or self-care (01) ==
LOC: RAD 15:06
PROVIDERS: PCP Nurse Practitioner Family; Visit Provider Thoracic Surgery (Cardiothoracic Vascular Surgery)
DX: I82.402 Acute embolism and thrombosis of unspecified deep veins of left lower extremity (principal)
CPT/HCPCS: 93971

== ENCOUNTER 2022-10-29 08:46 | Day surgery (SDC) | payer MEDICARE, SELFPAY ==
[2022-10-28 12:21] VITALS: BMI 31.1
[2022-10-29] VITALS (10 sets, daily range): BP systolic 119–170; BP diastolic 74–108; PULSE 59–89; RESP 14–18; TEMP 36.1–36.8; O2SAT 94–100
[2022-10-29] MEDS: sodium chloride 0.9% 1,000 ML 30 ML IV (09:30)
[2022-10-29 10:06] LABS: Basophils % 0.6 %; Eosinophils # 0.1 10^3/uL (0.0-0.8); Eosinophils % 1.5 %; Hematocrit 51.7 % (42.0-52.0); Hemoglobin 17.2 g/dL (11.7-16.6); Lymphocytes # 1.4 10^3/uL (0.8-4.8); Lymphocytes % 21.6 %; Mean Corpuscular HGB Conc 33.3 g/dL (30.0-36.0); Mean Corpuscular Hemoglobin 30.9 pg (28.0-34.0); Mean Platelet Volume 9.8 fL (7.4-10.4); Monocytes # 0.5 10^3/uL (0.2-0.9); Monocytes % 7.1 %; Neutrophils # 4.53 10^3/uL (1.8-7.7); Neutrophils % 68.9 %; Nucleated Red Blood Cells % 0 %; Platelet Count 139 10^3/cmm (130-400); Red Blood Count 5.56 10^6/uL (4.1-5.3); White Blood Count 6.6 10^3/uL (4.0-10.0)
--- NOTE | 2022-10-29 11:12 | P.HP_ITS ---
Same Day Surgery H&P Indication for Procedure/HPI DATE OF PROCEDURE: October 29, 2022 CHIEF COMPLAINT/INDICATIONFOR SURGICAL PROCEDURE: Hematuria with DVT. 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 He has been Evaluated by Dr. Henson and is also monitored by Dr. Gonzales from our hematology/oncology service. It is felt that he will require further interventions by Dr. Henson which will require cessation of Eliquis for period of time. Therefore, IVC filter placement has been recommended. This been previously discussed with Mr. Romero by Dr. Henson and Dr. Gonzales. He is agreeable and wishes to proceed. ROS Hematuria while on Eliquis. BPH with symptoms. No fever, chest pain, or dyspnea. Medications/Allergies* Lisinopril; citalopram Home Medications Medication Instructions Recorded Confirmed Type alprazolam 0.5 mg tablet 0.5 mg PO BEDTIME PRN Sleep 11/01/19 10/29/22 History canagliflozin 300 mg tablet 300 mg PO QAM 11/01/19 10/28/22 History (Invokana) cetirizine 10 mg capsule 10 mg PO DAILY PRN Allergy Symptoms 11/01/19 10/29/22 History finasteride 5 mg tablet 5 mg PO QAM 11/01/19 10/28/22 History metformin 850 mg tablet 850 mg PO BID 11/01/19 10/28/22 History zolpidem 10 mg tablet 10 mg PO BEDTIME PRN Sleep 11/01/19 10/29/22 History apixaban 5 mg tablet (Eliquis) 5 mg PO BID 03/15/22 10/28/22 History cholecalciferol (vitamin D3) 25 25 mcg PO DAILY 03/15/22 10/29/22 History mcg (1,000 unit) tablet (Vitamin D3) memantine 5 mg tablet 5 mg PO BID 03/15/22 10/28/22 History sertraline 100 mg tablet 100 mg PO QAM 03/15/22 10/28/22 History simvastatin 40 mg tablet 40 mg PO QAM 03/15/22 10/28/22 History propranolol 40 mg tablet 40 mg PO BID 04/02/22 10/28/22 History insulin glargine 100 54 unit SUBCUT QAM 08/22/22 10/28/22 History unit-lixisenatide 33 mcg/mL subcutaneous pen (Soliqua 100/33) Allergies/Adverse Reactions Allergy/AdvReac Type Severity Reaction Status Date / Time citalopram Allergy Unknown Verified 10/29/22 09:24 lisinopril Allergy Unknown Verified 10/29/22 09:24 Current Medications: Generic Name Dose Route Start Last Admin Trade Name Freq PRN Reason Stop Dose Admin Sodium Chloride 1,000 mls @ 30 mls/hr 10/29/22 09:00 10/29/22 09:30 Sodium Chloride 0.9% IV 10/30/22 08:59 30 mls/hr .Q24H MERRY Administration Pertinent History/Comorbid Conditions* Documented left lower extremity chronic DVT as noted by venous duplex study of September 11. Right lower extremity venous duplex study of October 25 was negative for DVT in the right lower extremity. Medical History (Updated 09/13/22 @ 00:00 by LIBBY [place]) BPH NOS w ur obs/LUTS Transurethral section of the prostate gland November 2019 with excellent response. Erectile dysfunction Gross hematuria Hyperlipidemia Hypertension Major depression Obstructive sleep apnea Osteoarthritis Recurrent deep vein thrombosis of left lower extremity Type 2 diabetes mellitus Surgical History (Updated 04/02/22 @ 08:49 by Master Gonzales MD) H/O arthroscopy of knee right H/O carpal tunnel repair bilateral History of cataract extraction Bilateral cataract surgery and bilateral Lasik surgery Hx of shoulder surgery bilateral S/P TURP (status post transurethral resection of prostate) Family History (Updated 11/01/19 @ 11:35 by Kaleigh Marquez LPN) Father, at age 85 Mother, at age 78 Diabetes CAD (coronary artery disease) Cancer Mother pancreatic Hypertension Social History Smoking and tobacco status: former smoker (smoked x 35 years) Alcohol intake: never Marital status: Current occupational status: retired Pertinent Exam Findings alert, oriented x 3, clear to auscultation bilaterally, regular rate & rhythm, operative site marked and procedure specific exam findings (Positive left lower extremity. Negative right lower extremity by duplex.) Alert and oriented. Lungs clear to auscultation bilaterally. Cardiovascular exam reveals regular rate and rhythm without substantial murmur, gallop, or rub. Abdomen is soft with normoactive bowel sounds and is nontender. There is no rebound. No palpable masses. Lower extremities are warm. There are 2+ femoral pulses bilaterally. Modest edema of the left lower extremity with no edema to the right lower extremity. He is neurologically intact grossly to sensation and motor movements Pertinent Data Documented chronic left lower extremity DVT from duplex study of September 11 No DVT noted in right lower extremity from duplex study of October 25 Recommendations Surgery/Procedure today Other Plans: We will plan to proceed with IVC filter placement. My initial approach will be through the right femoral vein. Rationale for IVC filter placement was carefully and frankly discussed. Specific risks reviewed include , stroke, heart attack, major bleeding, infection, pulmonary embolism, DVT to the right lower extremity, infection, migration of the IVC filter to the heart or lungs, ineffectiveness of the filter, need for further procedures related to blood clots or filter placement. All questions were answered and proper consents have been reviewed and signed. He does wish to proceed. 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 I offered her to contact her for updates and to discuss the procedure with her and he felt that was not necessary at this time. She will be off work at 3 PM today and will be transporting him from the hospital to return home. Coding Level of Care Code Acute Code for Chg Fwd Diagnoses
[2022-10-29 11:22] LABS: Anion Gap 15.6 (5-19); Blood Urea Nitrogen 18 mg/dL (8-23); Calcium 8.9 mg/dL (8.5-10.5); Carbon Dioxide 23 mmol/L (22-29); Chloride 104 mmol/L (98-107); Creatinine Clr Calc Pharmacy 68.4659; Glucose 137 mg/dL (65-115); Osmolality Calculated 290 mOsm/kg (285-295); Potassium 4.6 mmol/L (3.5-5.1); Sodium 138 mmol/L (136-145)
[2022-10-29] MEDS: ceFAZolin 2,000 MG in sodium chloride 0.9% (plus) 50 ML 100 MG IV (11:34)
[2022-10-29] MEDS: lidocaine 2% INJ 20 mL INJECTION (12:03)
[2022-10-29] MEDS: iohexol 300 mg/mL 50 mL Btl XX (12:10)
--- NOTE | 2022-10-29 12:37 | P.OP_ITS ---
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 He has recurrent hematuria and will need further cystoscopy and interventions by Dr. Henson to include possible TURP. Anticoagulation will need to be held prior to and in the postoperative period after this procedure is performed. IVC filter placement has been requested to allow for discontinuation of anticoagulation. Details and risk of the procedure were carefully and frankly discussed. Proper consents have been reviewed and signed. Procedure: Mr. Romero was taken to the OR suite and carefully positioned on the OR table over protective padding. He was induced and underwent anesthesia by our anesthesia colleagues with appropriate monitoring in place. Following this, the entire abdomen, lower chest, groin area, perineal area, and thighs to the level of the knees were sterilely prepped and draped. Appropriate timeout was completed and confirmed by all present. Utilizing modified Seldinger technique with handheld ultrasound identification and guidance, the right common femoral vein was aspirated and a guidewire was placed under fluoroscopic guidance. Following incision of the skin with a #11 scalpel blade and predilation, dilator and #7 tamazight sheath were then advanced over a 0.035 inch guidewire under fluoroscopic guidance. Next, Omnipaque was utilized to perform a venogram for proper assessment of the renal veins. Next, a preloaded IVC filter introducer was advanced through the sheath under fluoroscopic guidance into position. Following this, filter was released with fluoroscopic guidance and observation. The filter seated well with minimal angulation. Introducer and sheath were then withdrawn and direct pressure was held on the groin area for 10 minutes until hemostasis was confirmed. A weighted pressure dressing was then applied. Mr. Romero tolerated procedure well and was awakened from anesthesia. Vital signs remained stable throughout the procedure. I did contact his by phone at the completion of the procedure.
[2022-10-29] MEDS: hyDRALAzine 20 mg/mL INJ 1 mL (13:04)
[2022-10-29] MEDS: metoprolol tartrate 1 mg/1 mL SDV 5 mL 5 MG (13:04)
[2022-10-29] MEDS: HYDROcodone-acetaminophen 5-325 mg Tablet 1 TAB PO (14:01)
--- NOTE | 2022-10-29 14:32 | ANE.PACU2 ---
Inpatient post-anesthesia follow up: Airway intact: Yes Vital signs: Temperature 98.2 F Pulse Rate 79 Respiratory Rate 18 Blood Pressure 119/74 Pulse Oximetry 94 Oxygen Delivery Me thod Room Air Oxygen Flow Rate 6 Fraction of Inspir ed Oxygen Hydration adequate: Yes Nausea and vomiting: No Pain level: 2 Mental status: Baseline
[2022-10-30 09:13] LABS: Glucose Point of Care 149 mg/dL (70-110)
== END 2022-10-29 14:55 | disposition home or self-care (01) ==
PROVIDERS: PCP Nurse Practitioner Family; Visit Provider Thoracic Surgery (Cardiothoracic Vascular Surgery)
PROC: 06H03DZ Insertion of Intraluminal Device into Inferior Vena Cava, Percutaneous Approach (ICD-10-PCS; CPT 37191; principal; 2022-10-29 10:35)
DX: I82.402 Acute embolism and thrombosis of unspecified deep veins of left lower extremity (principal); R31.9 Hematuria, unspecified; E11.9 Type 2 diabetes mellitus without complications; E78.5 Hyperlipidemia, unspecified; I10 Essential (primary) hypertension; Z79.4 Long term (current) use of insulin; Z79.01 Long term (current) use of anticoagulants; Z87.891 Personal history of nicotine dependence
CPT/HCPCS: 37191; 36416; 76000; 80048; 82962; 85025; C1880; J0360; J0690; J1100; J2405; J2704; J3010; J3490; J7030; Q9967

== ENCOUNTER → 2022-11-05 12:59 | Outpatient (BNVA) | payer MEDICARE, SELFPAY | PROVIDERS: PCP Nurse Practitioner Family; Visit Provider Urology | DX: N40.1 Benign prostatic hyperplasia with lower urinary tract symptoms (principal); R31.0 Gross hematuria | CPT/HCPCS: 51798; 99024; 99214 ==

== ENCOUNTER 2022-11-08 11:09 | Observation (INO) | payer MEDICARE, SELFPAY ==
--- NOTE | 2022-11-07 09:54 | ECG_ITS ---
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 Measurements Intervals [place] Rate: 59 P: -8 ND: 117 QRS: -8 QRSD: 90 T: 87 QT: 412 QTc: 409 Interpretive Statements SINUS BRADYCARDIA WITH SHORT ND INTERVAL Nonspecific T wave changes No previous ECG available for comparison Electronically Signed On 11-07-2022 21:29:11 CDT by Heath Araiza M.D. [id number]
[2022-11-07 09:56] VITALS: BMI 31.8
--- NOTE | 2022-11-07 10:14 | ANES.PREANE2 ---
Pre-Anesthetic Assessment Height/Weight: Height 1.83 m Weight 106.594 kg Operation Date: 11/08/22 09:55 Proposed Procedures p Transurethral Resection Of Prostate(Not Applicable) - Cresencio Henson MD s CYSTOSCOPY TRANSURETHRAL RESECTION /VAPORIZATION OF PROSTATE 09499, N40.1(Not Applicable) - Cresencio Henson MD Familial anesthetic complications: None Social No alcohol and No tobacco Exam alert, oriented x 3, clear to auscultation bilaterally and regular rate & rhythm Airway Mallampati: Class II Dentition: full Pulmonary Sleep Apnea CV/HEM Deep Vein Thrombosis and Hypertension Able to achieve > 4 METS without cardiac symptoms IVC filter in place Chronic Renal Insufficiency Metabolic Diabetes Mellitus and Hyperlipidemia Anesthetic Plan ASA status: 3 Anesthesia: General Risk of > 500 ml blood loss (7ml/kg in children): No Medications/Allergies Home Medications Medication Instructions Recorded Confirmed Last Taken Type alprazolam 0.5 mg tablet 0.5 mg PO BEDTIME PRN Sleep 11/01/19 11/07/22 10/28/22 History canagliflozin 300 mg tablet 300 mg PO QAM 11/01/19 11/07/22 11/07/22 History (Invokana) cetirizine 10 mg capsule 10 mg PO DAILY PRN Allergy Symptoms 11/01/19 11/07/22 11/07/22 History finasteride 5 mg tablet 5 mg PO QAM 11/01/19 11/07/22 11/07/22 History metformin 850 mg tablet 850 mg PO BID 11/01/19 11/07/22 11/07/22 History zolpidem 10 mg tablet 10 mg PO BEDTIME PRN Sleep 11/01/19 11/07/22 10/28/22 History cholecalciferol (vitamin D3) 25 25 mcg PO DAILY 03/15/22 11/07/22 11/07/22 History mcg (1,000 unit) tablet (Vitamin D3) memantine 5 mg tablet 5 mg PO BID 03/15/22 11/07/22 10/28/22 History sertraline 100 mg tablet 100 mg PO QAM 03/15/22 11/07/22 11/07/22 History simvastatin 40 mg tablet 40 mg PO QAM 03/15/22 11/07/22 11/07/22 History propranolol 40 mg tablet 40 mg PO BID 04/02/22 11/07/2211/07/23 History insulin glargine 100 54 unit SUBCUT QAM 08/22/22 11/07/22 10/28/22 History unit-lixisenatide 33 mcg/mL subcutaneous pen (Soliqua ) tamsulosin 0.4 mg capsule 0.4 mg PO QDAY #30 caps 10/10/22 11/07/22 11/07/22 Rx hydrocodone 5 mg-acetaminophen 325 1 tab PO Q8H PRN pain #6 tabs 10/29/22 11/07/22 11/07/22 Rx mg tablet apixaban 5 mg tablet (Eliquis) 5 mg PO DAILY 11/07/22 11/07/22 11/04/22 History Allergies Allergy/AdvReac Type Severity Reaction Status Date / Time citalopram Allergy Unknown Verified 11/05/22 15:52 lisinopril Allergy Unknown Verified 11/05/22 15:52 PFSH Anesthesia Medical History BPH NOS w ur obs/LUTS Transurethral section of the prostate gland November 2019 with excellent response. Erectile dysfunction Gross hematuria Hyperlipidemia Hypertension Major depression Obstructive sleep apnea Osteoarthritis Recurrent deep vein thrombosis of left lower extremity Type 2 diabetes mellitus Surgical History H/O arthroscopy of knee right H/O carpal tunnel repair bilateral History of cataract extraction Bilateral cataract surgery and bilateral Lasik surgery Hx of shoulder surgery bilateral S/P TURP (status post transurethral resection of prostate) Family History Father , at age 85 No problems noted. Mother , at age 78 Cancer pancreatic Other CAD (coronary artery disease) Diabetes Hypertension Social History Smoking and tobacco status: former smoker (smoked x 35 years) Alcohol intake: never Marital status: Current occupational status: retired Data Anesthesia Cardiac Studies: No Data to Display
[2022-11-08] VITALS (21 sets, daily range): BP systolic 102–168; BP diastolic 65–93; PULSE 51–80; RESP 15–18; TEMP 36.1–36.9; O2SAT 90–96
--- NOTE | 2022-11-08 06:30 | P.ANESUD_ITS ---
Pre-Anesthetic Update Pre-Anesthetic Assessment: Date of Surgery/Procedure: 11/08/22 Preop Maddie gnosis: Refractory prostate bleeding, BPH Proposed Procedure: Operation Date: 11/08/22 07:00 Proposed Procedures p Transurethral Resection Of Prostate(Not Applicable) - Cresencio Henson MD s CYSTOSCOPY TRANSURETHRAL RESECTION /VAPORIZATION OF PROSTATE 75255, N40.1(Not Applicable) - Cresencio Henson MD Any changes to Pre-Anesthetic Assessment?: No Last Intake: Intake Last Liquid Date 11/07/22 Last Liquid Time 23:59 Last Solid Date 11/07/22 Last Solid Time 18:00 Vitals: Temperature 97.2 F L 11/08/22 06:04 Temperature Source Temporal Artery S can 11/08/22 06:04 Pulse Rate 57 L 11/08/22 06:04 Pulse Rhythm Irregular 11/08/22 06:16 Pulse Strength 3+ Normal 11/08/22 06:16 Respiratory Rate 18 11/08/22 06:04 Blood Pressure 134/77 11/08/22 06:04 Blood Pressure Lilibeth n 96 11/08/22 06:04 Pulse Oximetry 96 11/08/22 06:04 Oxygen Delivery Me thod Room Air 11/08/22 06:16 Exam: Pre-Anes Outpt Exam: alert, oriented x 3, clear to auscultation bilaterally and regular rate & rhythm Cardiac Studies: No Data to Display
--- NOTE | 2022-11-08 06:40 | P.ANESUD_ITS ---
Pre-Anesthetic Update Pre-Anesthetic Assessment: Date of Surgery/Procedure: 11/08/22 Preop Maddie gnosis: Refractory prostate bleeding, BPH Proposed Procedure: Operation Date: 11/08/22 07:00 Proposed Procedures p Transurethral Resection Of Prostate(Not Applicable) - Cresencio Henson MD s CYSTOSCOPY TRANSURETHRAL RESECTION /VAPORIZATION OF PROSTATE 47046, N40.1(Not Applicable) - Cresencio Henson MD Any changes to Pre-Anesthetic Assessment?: No Last Intake: Intake Last Liquid Date 11/07/22 Last Liquid Time 23:59 Last Solid Date 11/07/22 Last Solid Time 18:00 Vitals: Temperature 97.2 F L 11/08/22 06:04 Temperature Source Temporal Artery S can 11/08/22 06:04 Pulse Rate 57 L 11/08/22 06:04 Pulse Rhythm Irregular 11/08/22 06:16 Pulse Strength 3+ Normal 11/08/22 06:16 Respiratory Rate 18 11/08/22 06:04 Blood Pressure 134/77 11/08/22 06:04 Blood Pressure Lilibeth n 96 11/08/22 06:04 Pulse Oximetry 96 11/08/22 06:04 Oxygen Delivery Me thod Room Air 11/08/22 06:16 Exam: Pre-Anes Outpt Exam: alert, oriented x 3, clear to auscultation bilaterally and regular rate & rhythm Cardiac Studies: No Data to Display
[2022-11-08] MEDS: sodium chloride 0.9% 1,000 ML 30 ML IV ×2 (06:44→11:49)
--- NOTE | 2022-11-08 06:58 | P.HPUD_ITS ---
Surgery/Procedure H&P Update DATE OF PROCEDURE: November 08, 2022 DATE H&P PERFORMED: 11/05/22 H&P UPDATE INFORMATION: I have reviewed H&P completed within last 30 days, I have examined patient prior to procedure, No changes to prior documentation and H&P is in [facility] on date indicated PREOP DIAGNOSIS: Refractory prostate bleeding, BPH PLANNED PROCEDURE: Operation Date: 11/08/22 07:00 Proposed Procedures p Transurethral Resection Of Prostate(Not Applicable) - Cresencio Henson MD s CYSTOSCOPY TRANSURETHRAL RESECTION /VAPORIZATION OF PROSTATE 07520, N40.1(Not Applicable) - Cresencio Henson MD
[2022-11-08] MEDS: levofloxacin-dextrose 5 % 500 MG/100 ML PREMIX 100 MG IV (07:03)
[2022-11-08] MEDS: lidocaine 2% Urojet 20 mL TOPICAL (07:42)
[2022-11-08 08:06] LABS: Glucose Point of Care 146 mg/dL (70-110)
--- NOTE | 2022-11-08 08:50 | PM.OP ---
Operative Report Date of procedure: November 08, 2022 Pre-op diagnosis: Refractory prostate bleeding Growth of prostate adenoma Post-op diagnosis: Refractory prostate bleeding Growth of prostate adenoma Procedure done: 1. Cystoscopy, transurethral section/vaporization of the prostate Specimens removed/disposition: Prostate chips Pathology: Prostate chips Surgeon: Sixto Estimated blood loss: Minimal Urine output: Not measured Complications: None Findings: Anesthesia: General Condition: Stable Disposition: PACU Intraoperative findings: Friable prostate. Very large right lateral lobe consistent of regrowth of adenomatous tissue. Large intravesical protrusion into the bladder Hemostatic and wide open fossa at the completion of the procedure. Brief History: Landen is a very pleasant 72-year-old white male who about 3 years ago underwent a cystoscopy transurethral section of the prostate gland for progressive bladder outlet obstructive symptoms. He did well. More recently he has had increasing bleeding from the prostate tissue as determined by cystoscopy especially after being placed on blood thinners for DVT. Management with finasteride was unsuccessful in controlling the bleeding. He did require catheterization and clot evacuation with CBI at 1 point. It was recommended that we consider surgical intervention for resection of regrowth of adenomatous tissue which was quite friable Procedure: Routine preoperative evaluation examination and obtaining of informed consent he was taken to the operating suite on 11/08/2022 where general anesthesia was administered without difficulty after appropriate timeout was performed, SCDs confirmed to be functioning, preoperative antibiotics administered, beta-alton protocol confirmed. Prepped and draped in usual sterile fashion in dorsolithotomy position pain careful attention to avoiding pressure points. 21 [place] cystoscope with 30 degree lens was introduced into the urethral meatus and advanced into the bladder without difficulty. Prostate showed a huge regrowth of tissue on the right lateral lobe extending well into the bladder. The left lateral lobe had some mild regrowth but had a very friable mucosal surface. This was well away from the bladder neck although the right lateral lobe was extending and draping over the right side of the trigone. The verumontanum was easily identifiable. No other gross pathology was seen Was then calibrated with Vani sounds and easily accommodated 30 [place]. 2% lidocaine jelly was instilled into the urethra then a well-lubricated 25 [place] continuous-flow resectoscope sheath with visual obturator in place was advanced into the bladder without difficulty. The gyrus bipolar system was utilized for resection and vaporization is initially starting with the super loop. Landmarks were again ascertained. Resection was begun on the intravesically protruding portion of the regrowth of adenomatous tissue in the right lateral lobe. It was started at the roughly 10 o'clock position on easier access to the tissue that was lower and extending and draping over the right side of the trigone. It was resected down to the circular fibers of the bladder neck and care was made throughout the 2 resected tissue and avoid straining onto the right ureteral orifice or trigone. This was easily accomplished. Resection was then continued distally resecting the right lateral lobe out to the level of the verumontanum. Periodically the button probe was utilized for vaporization technique for maintaining good hemostasis. Amount of tissue on the floor the prostate and this was resected. The left lateral lobe had some regrowth but not much but there was a significant amount of friable vessels along the mucosa and for that reason the button probe was utilized to vaporize the mucosal surface down into the adenomatous tissue further opening the fossa 3:00 and 9:00 trough was made on each side of the bladder neck with the button probe for further opening of the bladder neck. Some adenomatous tissue at the level of the verumontanum and this was carefully trimmed away avoiding straining distally to the tandem. At the completion of the procedure all chips were evacuated from the bladder and confirmed visually. Hemostasis was excellent. The prostatic fossa was wide open. The orifices were uninvolved and resection. The tissue distal to the verumontanum was also uninvolved. The bladder was drained with a 22 [place] three-way Bella catheter with 40 cc placed in the balloon and efflux was clear. Light CBI was initiated prophylactically. Awakened in the operating room and returned to PACU in stable condition. PLANS: 1. Placed on observation status with anticipation of 1 night in the hospital. 2. We will likely go home with a catheter in place voiding trial next week
[2022-11-08] MEDS: HYDROcodone-acetaminophen 5-325 mg Tablet 1 TAB PO ×3 (10:13→19:32)
[2022-11-08 11:39] LABS: Glucose Point of Care 199 mg/dL (70-110)
[2022-11-08] MEDS: tamsulosin 0.4 mg Capsule PO (11:48)
[2022-11-08] MEDS: metformin 850 mg Tablet PO ×2 (11:49→17:23)
[2022-11-08] MEDS: docusate sodium 100 mg Capsule PO ×2 (11:49→17:24)
[2022-11-08] MEDS: memantine 5 mg tablet PO ×2 (11:49→17:24)
[2022-11-08] MEDS: propranolol 40 mg Tablet PO ×2 (11:49→17:24)
--- NOTE | 2022-11-08 12:25 | ANE.PACU2 ---
Inpatient post-anesthesia follow up: Airway intact: Yes Vital signs: Temperature 97 F Pulse Rate 66 Respiratory Rate 18 Blood Pressure 148/83 Pulse Oximetry 93 Oxygen Delivery Me thod Room Air Oxygen Flow Rate Fraction of Inspir ed Oxygen Hydration adequate: Yes Nausea and vomiting: No Pain level: 1 Mental status: Baseline
[2022-11-08 17:33] LABS: Glucose Point of Care 221 mg/dL (70-110)
[2022-11-08 20:52] LABS: Glucose Point of Care 195 mg/dL (70-110)
[2022-11-09] MEDS: ALPRAZolam 0.5 mg Tablet PO (02:40)
[2022-11-09 03:23] VITALS: BP 118/63; PULSE 42; RESP 17; TEMP 36.8; O2SAT 95
[2022-11-09] MEDS: sertraline 100 mg Tablet PO (05:23)
[2022-11-09] MEDS: atorvastatin 40 mg Tablet 20 MG PO (05:23)
[2022-11-09] MEDS: finasteride 5 mg Tablet PO (05:24)
[2022-11-09] MEDS: HYDROcodone-acetaminophen 5-325 mg Tablet 1 TAB PO (05:33)
[2022-11-09 07:20] VITALS: BP 135/79; PULSE 45; RESP 16; TEMP 36.5; O2SAT 95
[2022-11-09 07:35] LABS: Glucose Point of Care 139 mg/dL (70-110)
[2022-11-09] MEDS: docusate sodium 100 mg Capsule PO (07:50)
[2022-11-09] MEDS: metformin 850 mg Tablet PO (07:50)
[2022-11-09] MEDS: memantine 5 mg tablet PO (07:50)
[2022-11-09] MEDS: tamsulosin 0.4 mg Capsule PO (07:50)
--- NOTE | 2022-11-09 08:21 | P.DS_ITS ---
Discharge Providers Date of Admission: 11/08/22 11:09 Date of Discharge: November 09, 2022 Attending Provider at Admission: Cresencio Henson MD Attending Provider at Discharge: Cresencio Henson MD Primary Care Provider: NORA Tucker Diagnoses at Discharge Discharge Diagnosis (1) Prostatic hemorrhage: Status: Acute (2) BPH loc w urin obs/LUTS: Status: Acute (3) Insulin dependent type 2 diabetes mellitus: Status: Acute Reason for Visit Reason for Visit: Prostate bleeding Brief History: Landen is a very pleasant 72-year-old white male status post transurethral section of the prostate gland for BPH/obstruction about 3 years ago. Recently has had intermittent gross hematuria ultimately determined to be prostatic related. He had a lot of regrowth of adenomatous tissue on cystoscopy. After initiation of Eliquis for DVT he had clot retention requiring manual and continuous bladder irrigation. Was placed on finasteride with hopes of reducing his prostatic bleeding but it did not. He was having persistence and ultimately we elected to proceed with cystoscopy transurethral section of adenomatous regrowth in hopes of long-term reduction of prostate bleeding. Hospital Course Hospital Course He was admitted on the day of the procedure which went very well. Intraoperative findings included a well resected left lateral lobe but with a lot of hypervascularity along the prostatic mucosa. The right lateral lobe showed dramatic regrowth of adenomatous tissue with very friable character. There is a large extension of the lateral lobe into the bladder as well. He underwent a formal transurethral section of prostate with wide open fossa at the completion of the procedure and good hemostasis. Interestingly the prostatic tissue was rather friable throughout. No other gross pathology was identified. Pathology is pending. Postoperative course was unremarkable. He had no recurrent bleeding. CBI was continued on the night of his surgery but weaned off completely. He did have some indigestion. That resolved. Some transient bradycardia which also resolved. He felt that he was at baseline on postop day #1. Based on the friable nature of the prostate it was decided to leave the catheter in at discharge with plans for voiding trial in the clinic on 11/12/2022. Was trained in night bag and leg bag management. Was to continue holding the Eliquis due to the significant risk of rebleeding with a fresh postoperative field. Was discharged on postoperative day #1 in stable condition and deemed to be a good candidate for further convalescence at home with follow-up as scheduled above. Instructed how to reach me after hours if there is any concerns or questions. Physical Exam Narrative: General: Alert oriented no acute distress Respiration: No labored respiration. No audible wheezing. : Urine clear Extremity: Good range of motion Psychiatric: Normal mentation. Baseline Urinary Catheter Management: 3-way Urethral CBI: Cath Placed During This Visit: yes Reason for Continuing Indwelling Catheter: Perioperative Use in Selected Surgeries Urinary Catheter Date of Insertion: 11/08/22 Urinary Catheter Time of Insertion: 08:44 Discharge Data Studies Completed and Pending Pending at discharge Category Date Time Status Pathology: Surgical [PTH] Routine Pth 11/08/22 08:57 Received Laboratory Results POC Glucose 139 mg/dL (70-110) H 11/09/22 07:25 Procedures Performed Cystoscopy, transurethral resection of regrowth of adenomatous/bleeding prostatic tissue Vitals Last Vital Signs Temp 97.7 F 11/09/22 07:20 Pulse 45 L 11/09/22 07:20 Resp 16 11/09/22 07:20 BP 135/79 11/09/22 07:20 Pulse Ox 95 11/09/22 07:20 O2 Del Method Room Air 11/09/22 03:23 Discharge Plan Discharge Patient Disposition: Home Condition: Stable Prescriptions: New levofloxacin 250 mg tablet 250 mg PO DAILY 5 Days Qty: 5 0RF Continued metformin 850 mg tablet 850 mg PO BID alprazolam 0.5 mg tablet 0.5 mg PO BEDTIME PRN (Reason: Sleep) zolpidem 10 mg tablet 10 mg PO BEDTIME PRN (Reason: Sleep) finasteride 5 mg tablet 5 mg PO QAM cetirizine 10 mg capsule 10 mg PO DAILY PRN (Reason: Allergy Symptoms) Invokana 300 mg tablet 300 mg PO QAM propranolol 40 mg tablet 40 mg PO BID tamsulosin 0.4 mg capsule 0.4 mg PO QDAY Qty: 30 12RF Soliqua 100/33 100 unit-33 mcg/mL insulin pen 54 unit SUBCUT QAM MDD 60 units sertraline 100 mg tablet 100 mg PO QAM simvastatin 40 mg tablet 40 mg PO QAM memantine 5 mg tablet 5 mg PO BID cholecalciferol (vitamin D3) [Vitamin D3] 25 mcg (1,000 unit) Tablet 25 mcg PO DAILY hydrocodone-acetaminophen 5-325 mg tablet 1 tab PO Q8H PRN (Reason: pain) Qty: 6 0RF Held Eliquis 5 mg tablet 5 mg PO DAILY Hold Instructions: Resume on 12/02/22. We will talk about appropriate timing for starting the Eliquis again when I see you in clinic Discharge Orders: Discharge Order (Routine); Ordered 11/09/22 Ordered By: Cresencio Henson Referrals: Cresencio Henson MD [Physician] - 11/12/22 (Voiding trial Possible [facility] Please call Friday to schedule an appointment) Discharge Diet: Advance as tolerated Discharge Activity: Limit activity as instructed Patient Instructions: Levofloxacin (By mouth), Bella Catheter Care, Urinary Leg Bag (GEN), How to Change a Catheter Drainage Bag (GEN), TURP Activity Restrictions/Additional Instructions: 1. Your procedure went very well. He had a large amount of regrowth of tissue on the right lateral lobe of the prostate. There was a lot of obvious sources of recurrent bleeding based on the hypervascularity demonstrated on the prostate tissue. This should be markedly improved if not completely resolved. 2. It would be important to maintain the catheter until I see you in clinic. Tentative timeframe will be 11/12/2022. 3. Please call my office on Friday morning if you have not heard from us regarding time for that scheduled appointment. We will do a voiding trial will refill up the bladder with water and take the catheter out and see how much of what we put in you can void out. May train you how to do self cath just in case there are is some short-term difficulty with emptying. 4. Please stay off your Eliquis. I think you are at a high risk of bleeding with restarting your Eliquis. We may end up postponing it for several weeks due to that risk. 5. You can use either the night bag or the leg bag for catheter drainage at home pending your preference. 6. Please call if you have any concerns or questions. The hospital concrete paving machine operator can reach me at any time. 7. We will continue the TAMSULOSIN and FINASTERIDE for now but with intention of stopping both soon. The finasteride has an additional potential benefit of reducing your risk of bleeding postoperatively. Discharge Attestations Time Spent in Discharge Care*: less than 30 min Quality Metrics Clinical Quality Measures [ No reported AMI, CVA or VTE this stay] Coding Level of Care Code Acute Code for Chg Fwd Diagnoses Prostatic hemorrhage N42.1 BPH loc w urin obs/LUTS N40.1 Insulin dependent type 2 diabetes mellitus E11.9; Z79.4
--- NOTE | 2022-11-09 08:27 | PC.NURSE ---
patient educated on salomon catheter care, how to change from night bag to leg bag and back. pt also educated on how to empty drainage bag and leg bag. verbalized understanding
[2022-11-09 09:12] VITALS: BP 135/79; PULSE 45; RESP 16; TEMP 36.5; O2SAT 95
== END 2022-11-09 09:07 | disposition home or self-care (01) ==
PROVIDERS: Admitting Provider Urology; PCP Nurse Practitioner Family; Visit Provider Urology
PROC: 0VT08ZZ Resection of Prostate, Via Natural or Artificial Opening Endoscopic (ICD-10-PCS; CPT 52601; principal; 2022-11-08 07:00)
PROC: 0TJB8ZZ Inspection of Bladder, Via Natural or Artificial Opening Endoscopic (ICD-10-PCS; CPT 52000; 2022-11-08 07:00)
DX: N42.1 Congestion and hemorrhage of prostate (principal); E11.9 Type 2 diabetes mellitus without complications; I10 Essential (primary) hypertension; E78.5 Hyperlipidemia, unspecified; Z86.718 Personal history of other venous thrombosis and embolism; Z79.4 Long term (current) use of insulin; Z79.84 Long term (current) use of oral hypoglycemic drugs; Z79.01 Long term (current) use of anticoagulants; Z79.899 Other long term (current) drug therapy; Z87.891 Personal history of nicotine dependence
CPT/HCPCS: 52601; 36416; 82962; 88305; 93005; G0378; J1100; J1956; J2405; J2704; J2710; J3010; J3490; J7030

== ENCOUNTER → 2022-11-12 09:35 | Outpatient (BNVA) | payer MEDICARE, SELFPAY | PROVIDERS: PCP Nurse Practitioner Family; Visit Provider Urology | DX: N40.1 Benign prostatic hyperplasia with lower urinary tract symptoms (principal); R31.0 Gross hematuria; Z98.890 Other specified postprocedural states | CPT/HCPCS: 99024 ==

== ENCOUNTER → 2022-11-14 09:27 | Outpatient (BNVA) | payer MEDICARE, SELFPAY | PROVIDERS: PCP Nurse Practitioner Family; Visit Provider Nurse Practitioner Family | DX: M17.11 Unilateral primary osteoarthritis, right knee (principal) | CPT/HCPCS: 73562 ==

== ENCOUNTER → 2022-11-20 10:07 | Outpatient (BNVA) | payer MEDICARE, SELFPAY | PROVIDERS: PCP Nurse Practitioner Family; Visit Provider Family Medicine | DX: E11.9 Type 2 diabetes mellitus without complications (principal); Z79.4 Long term (current) use of insulin; F32.9 Major depressive disorder, single episode, unspecified; R09.82 Postnasal drip; F41.9 Anxiety disorder, unspecified; N40.1 Benign prostatic hyperplasia with lower urinary tract symptoms; M70.51 Other bursitis of knee, right knee; M19.90 Unspecified osteoarthritis, unspecified site; I82.402 Acute embolism and thrombosis of unspecified deep veins of left lower extremity; D75.1 Secondary polycythemia; G47.00 Insomnia, unspecified; G47.30 Sleep apnea, unspecified; G30.9 Alzheimer's disease, unspecified; F02.80 Dementia in other diseases classified elsewhere, unspecified severity, without behavioral disturbance, psychotic disturbance, mood disturbance, and anxiety; G25.2 Other specified forms of tremor; M17.11 Unilateral primary osteoarthritis, right knee | CPT/HCPCS: 83036 ==

== ENCOUNTER → 2022-12-18 08:57 | Outpatient (BNVA) | payer MEDICARE, SELFPAY | PROVIDERS: PCP Family Medicine; Visit Provider Urology | DX: N40.1 Benign prostatic hyperplasia with lower urinary tract symptoms (principal); R39.9 Unspecified symptoms and signs involving the genitourinary system | CPT/HCPCS: 51741; 51798; 81003; 99024 ==

== ENCOUNTER → 2023-06-19 15:51 | Outpatient (BNVA) | payer MEDICARE, SELFPAY | PROVIDERS: PCP Family Medicine; Visit Provider Family Medicine | DX: Z23 Encounter for immunization (principal); E11.9 Type 2 diabetes mellitus without complications; M19.90 Unspecified osteoarthritis, unspecified site; Z00.00 Encounter for general adult medical examination without abnormal findings; Z13.6 Encounter for screening for cardiovascular disorders; Z79.4 Long term (current) use of insulin | CPT/HCPCS: 80053; 83036 ==

== ENCOUNTER 2023-07-29 07:16 | Emergency (ER) | payer MEDICARE, SELFPAY ==
[2023-07-29 07:29] VITALS: BP 172/99; PULSE 86; RESP 16; TEMP 36.7; O2SAT 93; BMI 32.5
--- NOTE | 2023-07-29 07:42 | CT_ITS ---
WS: [id number] CT LUMBAR SPINE TECHNIQUE: Noncontrast CT of the lumbar spine with coronal and sagittal reformatted images. CLINICAL INFORMATION: trauma COMPARISON: None. DLP: 1063.[address] scans at [facility] use at least one of these dose optimization techniques: automated e xposure control; mA and/or kV adjustment per patient size (includes targeted exams where dose is matc hed to clinical indication); or iterative reconstruction. FINDINGS: L5 is sacralized. No acute appearing compression fractures. Mild lumbar curve. IVC filter. L1-L2: Mild facet arthropathy. Spinal canal and foramen are patent. L2-L3: Mild disc bulging with narrowing of the LEFT subarticular recess. Mild facet arthropathy. Mild LEFT foraminal narrowing. L3-L4: Mild disc bulging with osteophytic ridging. Slight effacement of the ventral thecal sac. Mild bilateral foraminal narrowing. Mild facet arthropathy. L4-L5: Mild disc bulging with narrowing of the RIGHT subarticular recess. Moderate facet arthropathy ligamentum flavum hypertrophy. Mild RIGHT and no significant LEFT foraminal narrowing. L5-S1: L5 is partially sacralized. Spinal canal and foramen are patent. Visualized pelvic bony structures: Normal. Paravertebral soft tissues: Normal. IMPRESSION: No acute traumatic lumbar spine findings.
--- NOTE | 2023-07-29 07:42 | CT_ITS ---
WS: [id number] CT THORACIC SPINE TECHNIQUE: Noncontrast CT of the thoracic spine with coronal and sagittal reformatted images. CLINICAL INFORMATION: trauma COMPARISON: None. DLP: 1289.[address] scans at [facility] use at least one of these dose optimization techniques: automated e xposure control; mA and/or kV adjustment per patient size (includes targeted exams where dose is matc hed to clinical indication); or iterative reconstruction. FINDINGS: Mild thoracic curve. Disc space heights and vertebral body heights are well-preserved. No acute appea ring compression fractures. No high-grade central canal stenosis. Acute spinous process fractures minimal widening at T7, T8, T9, and T10. Partially visualized LEFT ch ronic posterior rib fractures with callus formation. Partially visualized lungs are well aerated. Adr enal glands are normal. Normal GE junction. Aneurysmal proximal descending thoracic aorta measuring 3 .6 x 3.6 cm AP by transverse. IMPRESSION: 1. Acute spinous process fractures with minimal widening at T7, T8, T9, and T10 2. Aneurysmal proximal descending thoracic aorta measuring 3.6 x 3.6 cm AP by transverse. This can be followed up with CTA chest on an elective basis
[2023-07-29 08:06] VITALS: BP 125/88; PULSE 72; RESP 14; O2SAT 93
[2023-07-29] MEDS: orphenadrine 30 mg/mL Inj 2 mL 60 MG IVP (08:20)
[2023-07-29] MEDS: ketorolac 30 mg/mL INJ IVP (08:20)
[2023-07-29 08:21] VITALS: RESP 14; O2SAT 94
[2023-07-29] MEDS: dexamethasone 10 mg/mL INJ IM (08:21)
[2023-07-29] MEDS: morphine 4 mg/mL SDV 1 mL IVP (08:21)
--- NOTE | 2023-07-29 08:49 | ED_ITS ---
HPI - Fall General: Chief Complaint: Fall Stated Complaint: Fall, back/ upper abd pain Time Seen by Provider: 07/29/23 07:28 Source: patient Mode of arrival: ambulatory History of Present Illness: 73-year-old male presents emergency room complaining of mid upper back pain that began yesterday after he landed he was going down the stairs and landed on the edge of the stairs in his middle back. Pain with deep inspiration. Did not strike his head there is no loss consciousness. MD complaint: fall Onset (ago): day(s) (1) Fall from: standing Place fall occurred: home Prolonged down time: no Context: tripped/slipped Location of injury: back Associated symptoms-after fall: Reports chest pain and short of breath; Denies abdominal pain, confusion, difficulty walking, headache(s), hematuria, lightheadedness, neck pain, numbness, vertigo, weakness or other Review of Systems Const: Denies: fever(s) or chills Card: Reports: chest pain; Denies: lightheadedness Resp: Denies: dyspnea GI: Denies: abdominal pain : Denies: hematuria Musc: Denies: neck pain Skin/Breast: Denies: rash Neuro: Denies: headache(s), difficulty walking, vertigo or confusion PFSH ED PFSH: Medical History Alzheimer's dementia Insomnia Anxiety Gross hematuria Type 2 diabetes mellitus Recurrent deep vein thrombosis of left lower extremity Hyperlipidemia Hypertension Obstructive sleep apnea Osteoarthritis Major depression Erectile dysfunction BPH NOS w ur obs/LUTS Transurethral section of the prostate gland November 2019 with excellent response. Surgical History History of cataract extraction Bilateral cataract surgery and bilateral Lasik surgery Hx of shoulder surgery bilateral H/O carpal tunnel repair bilateral H/O arthroscopy of knee right S/P TURP (status post transurethral resection of prostate) Family History Father , at age 85 No problems noted. Mother , at age 78 Cancer pancreatic Other CAD (coronary artery disease) Diabetes Hypertension Social History Smoking and tobacco/nicotine status: former use of tobacco/nicotine (smoked x 35 years) Alcohol intake: former Former alcohol use details: alcoholism Substance/Drug Use: never Marital status: Current occupational status: retired Physical Exam Const: COMMON NORMALS: no acute distress GENERAL APPEARANCE: cooperative and comfortable ORIENTATION/CONSCIOUSNESS: Yes awake, Yes oriented to person, Yes oriented to place and Yes oriented to time HENMT: COMMON NORMALS: normocephalic, atraumatic and hearing grossly normal bilaterally HEAD & SCALP: normocephalic and atraumatic Resp: COMMON NORMALS: normal respiratory effort, No retractions, No use of accessory muscles and clear to auscultation bilaterally AUSCULTATION: clear to auscultation bilaterally Cardio: COMMON NORMALS: regular rate, regular rhythm and No murmurs present (Cardio) RATE: regular rate RHYTHM: regular rhythm GI: COMMON NORMALS: Soft to palpation and No hepatosplenomegaly present AUSCULTATION: Yes normoactive bowel sounds PALPATION: Yes Soft to palpation, No Tenderness to palpation present (GI), No Guarding due to palpation present (GI) and Yes No hepatosplenomegaly present Extremity: COMMON NORMALS: normal to inspection, capillary refill normal, no clubbing, cyanosis or edema, no calf tenderness and no pedal edema Neuro: SENSORIUM/ORIENTATION: Yes oriented to person, Yes oriented to place and Yes oriented to time Skin: COMMON NORMALS: no rashes or lesions noted GENERAL SKIN EXAM: no rashes or lesions noted Course Vital Signs: Vital signs: Vital Signs Temperature 98.1 F 07/29/23 07:29 Pulse Rate 72 07/29/23 08:06 Respiratory Rate 14 07/29/23 08:21 Blood Pressure 125/88 07/29/23 08:06 Pulse Oximetry 94 07/29/23 08:21 Oxygen Delivery Me thod Room Air 07/29/23 08:06 MDM - Fall Medical Decision Making Multiple spinous process fractures mildly displaced no cord compromise. Discharge home with pain medications follow-up with primary care return if is worsening problems. Medical Records I reviewed the patient's medical records. Lab Data I reviewed the patient's lab results. All radiology interpretation(s) finalized by discharge Discharge Plan Discharge Patient Disposition: Home Clinical Impression: Fracture of spinous process of thoracic vertebra Condition: Stable Prescriptions: New tizanidine 4 mg tablet 4 mg PO Q6H PRN (Reason: muscle spasticity) Qty: 20 0RF Rx Instructions: do not exceed 3 doses per 24 hrs hydrocodone-acetaminophen 5-325 mg tablet 1 tab PO Q6H PRN (Reason: pain) Qty: 25 0RF No Action metformin 850 mg tablet 850 mg PO BID cetirizine 10 mg capsule 10 mg PO DAILY PRN (Reason: Allergy Symptoms) Invokana 300 mg tablet 300 mg PO QAM propranolol 40 mg tablet 40 mg PO BID Soliqua 100/33 100 unit-33 mcg/mL insulin pen 60 unit SUBCUT QAM MDD 60 units finasteride 5 mg tablet 5 mg PO QAM Qty: 90 3RF tamsulosin 0.4 mg capsule 0.4 mg PO QDAY Qty: 90 3RF diclofenac sodium [Voltaren Arthritis Pain] 1 % gel 4 g topical QID Qty: 100 1RF Rx Instructions: apply to single knee tramadol 50 mg tablet 50 mg PO BID PRN (Reason: pain) Qty: 60 0RF Eliquis 5 mg tablet 5 mg PO BID Qty: 180 3RF fluticasone propionate [Flonase Allergy Relief] 50 mcg/actuation spray,suspension 2 spray intranasal DAILY Qty: 16 2RF Rx Instructions: administer into each nostril sertraline 100 mg tablet 200 mg PO QAM 90 Days Qty: 180 1RF simvastatin 40 mg tablet 40 mg PO QAM memantine 5 mg tablet 5 mg PO BID cholecalciferol (vitamin D3) [Vitamin D3] 25 mcg (1,000 unit) Tablet 25 mcg PO DAILY Discharge Orders: Discharge ED (Routine); Ordered 07/29/23 Ordered By: Isacc Navarrete Referrals: Anshul Torre MD [Primary Care Provider] - Discharge Diet: Usual diet Discharge Activity: Increase activity as tolerated Patient Instructions: Opioid Safety, Pain Management Activity Restrictions/Additional Instructions: Thank you for choosing [facility] for your healthcare needs today. Please realize this is an emergency room and that we are providing you with a medical screening exam and this may not be complete and all inclusive of all the testing and or work up that you may need to determine your ailment or severity of your illness. It is very important that you follow up as instructed or that you return to the Emergency Department should you have concerns or if your condition changes or worsens in any way. You were seen today after a fall you have spinous process fractures at T7-8-9 and 10. These do not require surgery and will heal on their own over time. We did give you pain medications hydrocodone, and a muscle relaxer tizanidine. You should not take hydrocodone and tramadol at the same time. Coding Level of Care Code ED Coupling Machine Operator for Joe Gutierrez
== END 2023-07-29 09:27 | disposition home or self-care (01) ==
PROVIDERS: Emergency Provider Family Medicine; PCP Family Medicine
DX: S22.008A Other fracture of unspecified thoracic vertebra, initial encounter for closed fracture (principal); W19.XXXA Unspecified fall, initial encounter
CPT/HCPCS: 72128; 72131; 96372; 96374; 96375; 99285; J1100; J1885; J2270; J2360

== ENCOUNTER 2023-07-30 17:04 | Emergency (ER) | payer MEDICARE, SELFPAY ==
[2023-07-30 17:19] VITALS: BP 97/60; PULSE 76; RESP 16; TEMP 36.7; O2SAT 96; BMI 32.5
--- NOTE | 2023-07-30 17:32 | XRR_ITS ---
PROCEDURE INFORMATION: Exam: XR Chest Exam date and time: 07/30/2023 5:46 PM Age: 73 years old Clinical indication: Injury or trauma; Blunt trauma (contusions or hematomas); Patient HX: Increased RT anterior/lateral chest pain post fall x 3 days ago TECHNIQUE: Imaging protocol: Radiologic exam of the chest. Views: 1 view. COMPARISON: CR XR chest 1V portable [id number] 09/11/2022 2:00 PM FINDINGS: Lungs: Lungs are clear bilaterally. Pleural spaces: No pleural effusion. No pneumothorax. Heart/Mediastinum: Stable moderate enlargement of the cardiac silhouette. Vasculature: Stable tortuosity of the aorta. Bones/joints: Old fracture of the posterolateral left 7th rib is stable. No acute fracture. XR/XR chest 1V portable [id number] IMPRESSION: 1. No acute cardiopulmonary process. 2. No acute fracture. 3. CT scan of the chest with contrast would be recommended if there is continuing clinical concern for thoracic injury. 4. Incidental/nonacute findings are listed in the report.
--- NOTE | 2023-07-30 17:34 | ED_ITS ---
HPI - Extremity Problem 2 General: Chief complaint: Extremity Problem,Nontraumatic Stated complaint: right side abd pain Time Seen by Provider: 07/30/23 17:12 Source: patient Mode of arrival: ambulatory History of Present Illness: 73-year-old male who had a fall on y he was seen here yesterday had imaging of his spine that showed spinous process fracture thoracic spine. States been having some right-sided chest pain as well and he did not have an x-ray is concerned he had rib fractures. Denies any severe dyspnea states he does have some worsening pain with deep inspiration. Denies abdominal pain to me states still on his right side chest. Denies any head pain. Associated symptoms: Reports chest pain; Deny fever(s) or rash Review of Systems 2 Const: Denies: fever(s), chills, body aches or change in appetite Eyes: Denies: blurry vision or eye discomfort ENMT: Denies: throat pain or dental pain Card: Reports: chest pain Resp: Denies: dyspnea GI: Denies: abdominal pain, nausea or vomiting Musc: Reports: back pain; Denies: neck pain Skin/Breast: Denies: rash Neuro: Denies: headache(s) PFSH ED 2 PFSH: Medical History Alzheimer's dementia Insomnia Anxiety Gross hematuria Type 2 diabetes mellitus Recurrent deep vein thrombosis of left lower extremity Hyperlipidemia Hypertension Obstructive sleep apnea Osteoarthritis Major depression Erectile dysfunction BPH NOS w ur obs/LUTS Transurethral section of the prostate gland November 2019 with excellent response. Surgical History History of cataract extraction Bilateral cataract surgery and bilateral Lasik surgery Hx of shoulder surgery bilateral H/O carpal tunnel repair bilateral H/O arthroscopy of knee right S/P TURP (status post transurethral resection of prostate) Family History Father , at age 85 No problems noted. Mother , at age 78 Cancer pancreatic Other CAD (coronary artery disease) Diabetes Hypertension Social History Smoking and tobacco/nicotine status: former use of tobacco/nicotine (smoked x 35 years) Alcohol intake: former Former alcohol use details: alcoholism Substance/Drug Use: never Marital status: Current occupational status: retired Physical Exam 2 Const: COMMON NORMALS: no acute distress, patient oriented x3 and healthy appearing HENMT: COMMON NORMALS: normocephalic and atraumatic HEAD & SCALP: n ormocephalic and atraumatic Eye: COMMON NORMALS: Equal, round and reactive pupils present and EOMs intact bilaterally PUPIL: Yes Equal, round and reactive pupils present Neck/C-Spine: COMMON NORMALS: full ROM and supple Chest: COMMONS NORMALS: normal inspection of the chest OTHER: Tenderness to right lateral chest Resp: COMMON NORMALS: normal respiratory effort, No retractions, No use of accessory muscles and clear to auscultation bilaterally AUSCULTATION: clear to auscultation bilaterally Cardio: COMMON NORMALS: regular rate, regular rhythm and No murmurs present (Cardio) RATE: regular rate RHYTHM: regular rhythm GI: COMMON NORMALS: Normal to inspection, nondistended, normoactive bowel sounds present, Soft to palpation, non-tender and no masses PALPATION: Yes Soft to palpation Extremity: COMMON NORMALS: normal to inspection and full ROM Neuro: COMMON NORMALS: patient oriented x3, moves all extremities and no focal motor deficits Psych: COMMON NORMALS: mental status grossly normal, Normal thought process present and cooperative THOUGHT PROCESS: Normal thought process present Skin: COMMON NORMALS: no rashes or lesions noted and no wounds GENERAL SKIN EXAM: no rashes or lesions noted Course 2 Vital Signs: Vital signs: Vital Signs Temperature 98.0 F 07/30/23 17:19 Pulse Rate 66 07/30/23 20:49 Respiratory Rate 18 07/30/23 20:34 Blood Pressure 129/63 07/30/23 20:49 Pulse Oximetry 95 07/30/23 20:49 Oxygen Delivery Me thod Room Air 07/30/23 20:34 MDM - Extremity (Nontraumatic) Medical Decision Making Patient presents here with rib pain after a fall he had known spinous process fracture he does have a posterior rib fracture 910 no sign of lung injury his vital signs here are normal did discharge him with incentive spirometry he is to return if worsening. Medical Records I reviewed the patient's medical records. Lab Data I reviewed the patient's lab results. 07/30/23 17:42 07/30/23 17:42 Radiology Impressions Chest X-Ray 07/30/23 17:32 IMPRESSION: 1. No acute cardiopulmonary process. 2. No acute fracture. 3. CT scan of the chest with contrast would be recommended if there is continuing clinical concern for thoracic injury. 4. Incidental/nonacute findings are listed in the report. Chest/Abdomen/Pelvis CT 07/30/23 18:03 IMPRESSION: 1. Acute nondisplaced fractures of the posterior right 9th and 10th ribs. These findings are new compared with prior CT scan of the thoracic spine dated 07/29/2023. 2. Stable acute mildly displaced fractures of the T5, T7, T8, T9, and T10 spinous processes. 3. Incidentals note of a left-sided superior vena cava emptying into the coronary sinus. 4. Incidental/nonacute findings are listed in the report. IMPRESSION: 1. No acute abnormality in the abdomen or pelvis. 2. No evidence for acute traumatic injury in the abdomen or pelvis. 3. Stable sigmoid diverticulosis. No evidence for diverticulitis. 4. Increased fecal content in the colon. 5. Atherosclerotic calcifications in the visualized arteries. Large focal noncalcified plaque in the juxtarenal abdominal aorta with 40% focal stenosis. Findings are stable. 6. Incidental/nonacute findings are listed in the report. COMMENTS: For patients with an IVC filter, recommend assessment for a management plan for the patient's IVC filter. If there is no established management plan, recommend referral to an interventional clinician on a nonemergent basis for evaluation. Laboratory Results WBC 10.96 10^3/uL (3.29-11.43) 07/30/23 17:42 RBC 5.28 10^6/uL (3.85-5.65) 07/30/23 17:42 Hgb 16.20 g/dL (11.27-16.99) 07/30/23 17:42 Hct 48.2 % (37-53) 07/30/23 17:42 MCV 91.3 fl (82-101) 07/30/23 17:42 MCH 30.7 pg (27-33) 07/30/23 17:42 MCHC 33.6 g/dL (30-55) 07/30/23 17:42 RDW 13.0 % (12.1-15.1) 07/30/23 17:42 Plt Count 142 10^3/cmm (157-399) L 07/30/23 17:42 MPV 10.1 fL (7.4-10.4) 07/30/23 17:42 Neut % (Auto) 68.8 % 07/30/23 17:42 Lymph % (Auto) 19.3 % 07/30/23 17:42 [place] % (Auto) 9.9 % 07/30/23 17:42 Eos % (Auto) 1.2 % 07/30/23 17:42 Baso % (Auto) 0.3 % 07/30/23 17:42 Neut # (Auto) 7.56 10^3/uL (1.8-7.7) 07/30/23 17:42 Lymph # (Auto) 2.1 10^3/uL (0.8-4.8) 07/30/23 17:42 [place] # (Auto) 1.1 10^3/uL (0.2-0.9) H 07/30/23 17:42 Eos # (Auto) 0.1 10^3/uL (0.0-0.8) 07/30/23 17:42 Baso # (Auto) 0.0 10^3/uL (0.0-0.1) 07/30/23 17:42 Nucleated RBC % (auto) 0 % 07/30/23 17:42 Nucleated RBCs # 0.0 /100WBC 07/30/23 17:42 Sodium 139 mmol/L (136-145) 07/30/23 17:42 Potassium 4.5 mmol/L (3.5-5.1) 07/30/23 17:42 Chloride 104 mmol/L (98-107) 07/30/23 17:42 Carbon Dioxide 22 mmol/L (22-29) 07/30/23 17:42 Anion Gap 17.5 (5-19) 07/30/23 17:42 BUN 40 mg/dL (8-23) H 07/30/23 17:42 Creatinine 1.7 mg/dL (0.7-1.2) H 07/30/23 17:42 GFR Calculation Not Reportable 07/30/23 17:42 Glucose 102 mg/dL (65-115) 07/30/23 17:42 Calculated Osmolality 298 mOsm/kg (285-295) H 07/30/23 17:42 Calcium 9.6 mg/dL (8.5-10.5) 07/30/23 17:42 All radiology interpretation(s) finalized by discharge Discharge Plan Discharge Patient Disposition: Home Clinical Impression: Fracture of spinous process of thoracic vertebra Right rib fracture Qualifiers: Encounter type: initial encounter Rib fracture type: multiple ribs Fracture type: closed Qualified Code(s): S22.41XA - Multiple fractures of ribs, right side, initial encounter for closed fracture Condition: Stable Prescriptions: No Action metformin 850 mg tablet 850 mg PO BID cetirizine 10 mg capsule 10 mg PO DAILY PRN (Reason: Allergy Symptoms) Invokana 300 mg tablet 300 mg PO QAM propranolol 40 mg tablet 40 mg PO BID Soliqua 100/33 100 unit-33 mcg/mL insulin pen 60 unit SUBCUT QAM MDD 60 units finasteride 5 mg tablet 5 mg PO QAM Qty: 90 3RF tamsulosin 0.4 mg capsule 0.4 mg PO QDAY Qty: 90 3RF diclofenac sodium [Voltaren Arthritis Pain] 1 % gel 4 g topical QID Qty: 100 1RF Rx Instructions: apply to single knee tramadol 50 mg tablet 50 mg PO BID PRN (Reason: pain) Qty: 60 0RF Eliquis 5 mg tablet 5 mg PO BID Qty: 180 3RF fluticasone propionate [Flonase Allergy Relief] 50 mcg/actuation spray,suspension 2 spray intranasal DAILY Qty: 16 2RF Rx Instructions: administer into each nostril sertraline 100 mg tablet 200 mg PO QAM 90 Days Qty: 180 1RF simvastatin 40 mg tablet 40 mg PO QAM memantine 5 mg tablet 5 mg PO BID cholecalciferol (vitamin D3) [Vitamin D3] 25 mcg (1,000 unit) Tablet 25 mcg PO DAILY tizanidine 4 mg tablet 4 mg PO Q6H PRN (Reason: muscle spasticity) Qty: 20 0RF Rx Instructions: do not exceed 3 doses per 24 hrs hydrocodone-acetaminophen 5-325 mg tablet 1 tab PO Q6H PRN (Reason: pain) Qty: 25 0RF Discharge Orders: Discharge ED (Routine); Ordered 07/30/23 Ordered By: Martina Pelayo Referrals: Anshul Torre MD [Primary Care Provider] - 1-3 days Discharge Diet: Advance as tolerated Discharge Activity: Resume usual activity Patient Instructions: Rib Fracture (ED), Opioid Safety Coding Level of Care Code ED Campus Supervisor for Joe Gutierrez
[2023-07-30 18:00] VITALS: BP 86/62; PULSE 73; O2SAT 93
--- NOTE | 2023-07-30 18:03 | CTR_ITS ---
PROCEDURE INFORMATION: Exam: CT Chest With Contrast; Diagnostic Exam date and time: 07/30/2023 7:02 PM Age: 73 years old Clinical indication: Injury or trauma; Fall; Blunt TECHNIQUE: Imaging protocol: Diagnostic computed tomography of the chest with contrast. Sagittal and coronal reformatted images were created and reviewed. Radiation optimization: All CT scans at this facility use at least one of these dose optimization techniques: automated exposure control; mA and/or kV adjustment per patient size (includes targeted exams where dose is matched to clinical indication); or iterative reconstruction. Contrast material: OMNI 350; Contrast volume: 100 ml; Contrast route: INTRAVENOUS (IV); COMPARISON: CR (CHEST, ) 07/30/2023 5:46 PM RADIATION DOSE METRICS: Total DLP (mGy-cm): 1869 FINDINGS: Trachea: Tracheobronchial structures are patent. Lungs: No focal consolidation. No pulmonary edema. No pulmonary parenchymal nodules or masses. Pleural spaces: No pneumothorax. No pleural effusion. Heart: Stable mild enlargement of the heart. Coronary arteries: Mild atherosclerotic calcification in the coronary arteries. Esophagus: The esophagus is unremarkable. Mediastinal space: No mediastinal hematoma. No pneumomediastinum. Lymph nodes: No lymphadenopathy. Vasculature: Moderate atherosclerotic changes in the visualized arteries. Incidentals note of a left-sided superior vena cava emptying into the coronary sinus. No evidence for aortic aneurysm or aortic dissection. Pulmonary arteries are unremarkable. Pulmonary veins are unremarkable. No extravasation of contrast from the thoracic vessels. Bones/joints: Acute nondisplaced fractures of the posterior right 9th and 10th ribs. These findings are new compared with prior CT scan of the thoracic spine dated 07/29/2023. Multiple old left rib fractures. Stable acute mildly displaced fractures of the T5, T7, T8, T9, and T10 spinous processes. Soft tissues: No acute abnormality in the extrathoracic soft tissues. PROCEDURE INFORMATION: Exam: CT Abdomen And Pelvis With Contrast Exam date and time: 07/30/2023 7:02 PM Age: 73 years old Clinical indication: Injury or trauma; Fall; Blunt TECHNIQUE: Imaging protocol: Computed tomography of the abdomen and pelvis with contrast. Radiation optimization: All CT scans at this facility use at least one of these dose optimization techniques: automated exposure control; mA and/or kV adjustment per patient size (includes targeted exams where dose is matched to clinical indication); or iterative reconstruction. Contrast material: OMNI 350; Contrast volume: 100 ml; Contrast route: INTRAVENOUS (IV); COMPARISON: CT kidney stone [id number] 09/11/2022 9:24 AM RADIATION DOSE METRICS: Total DLP (mGy-cm): 1869 FINDINGS: Liver: The liver is unremarkable. Gallbladder and bile ducts: The gallbladder is unremarkable. No biliary ductal dilatation. Pancreas: The pancreas is unremarkable. No pancreatic ductal dilatation. Spleen: The spleen is unremarkable. Adrenal glands: The right and left adrenal glands are unremarkable. Kidneys and ureters: Stable mild bilateral renal atrophy. Simple cyst in the left kidney is stable in size measuring 5.5 cm. The right and left ureters are unremarkable. Stomach and bowel: Numerous diverticula in the sigmoid colon, findings are stable. No evidence for diverticulitis. Increased fecal content in the colon. No acute abnormality in the small bowel. The stomach is unremarkable for the degree of distension. Appendix: Appendix not definitely visualized. No inflammatory changes in the pericecal region however. Intraperitoneal space: No free intraperitoneal air. No ascites. No loculated fluid collections to suggest an abscess. Vasculature: Atherosclerotic calcifications in the visualized arteries. Large focal noncalcified plaque in the juxtarenal abdominal aorta with 40% focal stenosis. Findings are stable. No evidence for aortic aneurysm or aortic dissection. Hepatic veins, portal veins, splenic vein, and SMV are patent. No extravasation of contrast from the abdominopelvic vessels. There is an inferior vena cava filter with the tip just below the level of the renal veins. Lymph nodes: No lymphadenopathy. Urinary bladder: The bladder is unremarkable. Reproductive: Unremarkable as visualized. Bones/joints: There is a transitional vertebra at the lumbosacral junction. This is designated as L5. Degenerative changes in the spine and hips. Soft tissues: No acute abnormality in the extra-abdominal soft tissues. CT/CT chest abdpel w/*[id number] IMPRESSION: 1. Acute nondisplaced fractures of the posterior right 9th and 10th ribs. These findings are new compared with prior CT scan of the thoracic spine dated 07/29/2023. 2. Stable acute mildly displaced fractures of the T5, T7, T8, T9, and T10 spinous processes. 3. Incidentals note of a left-sided superior vena cava emptying into the coronary sinus. 4. Incidental/nonacute findings are listed in the report. IMPRESSION: 1. No acute abnormality in the abdomen or pelvis. 2. No evidence for acute traumatic injury in the abdomen or pelvis. 3. Stable sigmoid diverticulosis. No evidence for diverticulitis. 4. Increased fecal content in the colon. 5. Atherosclerotic calcifications in the visualized arteries. Large focal noncalcified plaque in the juxtarenal abdominal aorta with 40% focal stenosis. Findings are stable. 6. Incidental/nonacute findings are listed in the report. COMMENTS: For patients with an IVC filter, recommend assessment for a management plan for the patient's IVC filter. If there is no established management plan, recommend referral to an interventional clinician on a nonemergent basis for evaluation.
[2023-07-30 18:13] LABS: Basophils % 0.3 %; Eosinophils # 0.1 10^3/uL (0.0-0.8); Eosinophils % 1.2 %; Hematocrit 48.2 % (37-53); Lymphocytes # 2.1 10^3/uL (0.8-4.8); Lymphocytes % 19.3 %; Mean Corpuscular HGB Conc 33.6 g/dL (30-55); Mean Corpuscular Hemoglobin 30.7 pg (27-33); Mean Corpuscular Volume 91.3 fl (82-101); Mean Platelet Volume 10.1 fL (7.4-10.4); Monocytes # 1.1 10^3/uL (0.2-0.9); Monocytes % 9.9 %; Neutrophils # 7.56 10^3/uL (1.8-7.7); Neutrophils % 68.8 %; Nucleated Red Blood Cells % 0 %; Platelet Count 142 10^3/cmm (157-399); Red Blood Count 5.28 10^6/uL (3.85-5.65); White Blood Count 10.96 10^3/uL (3.29-11.43)
[2023-07-30 18:23] LABS: Anion Gap 17.5 (5-19); Blood Urea Nitrogen 40 mg/dL (8-23); Calcium 9.6 mg/dL (8.5-10.5); Carbon Dioxide 22 mmol/L (22-29); Chloride 104 mmol/L (98-107); Glucose 102 mg/dL (65-115); Osmolality Calculated 298 mOsm/kg (285-295); Potassium 4.5 mmol/L (3.5-5.1); Sodium 139 mmol/L (136-145)
[2023-07-30 18:30] VITALS: BP 87/62; PULSE 73; O2SAT 92
[2023-07-30 19:18] VITALS: BP 151/70; PULSE 72; O2SAT 96
[2023-07-30] MEDS: iohexol 350 mg/mL 500 mL Btl (per mL) IV (19:25)
[2023-07-30 20:34] VITALS: PULSE 77; RESP 18; O2SAT 96
[2023-07-30 20:49] VITALS: BP 129/63; PULSE 66; O2SAT 95
== END 2023-07-30 20:50 | disposition home or self-care (01) ==
PROVIDERS: Emergency Provider Emergency Medicine; PCP Family Medicine
DX: S22.41XA Multiple fractures of ribs, right side, initial encounter for closed fracture (principal); S22.059A Unspecified fracture of T5-T6 vertebra, initial encounter for closed fracture; S22.069A Unspecified fracture of T7-T8 vertebra, initial encounter for closed fracture; S22.079A Unspecified fracture of T9-T10 vertebra, initial encounter for closed fracture; Z79.01 Long term (current) use of anticoagulants; Z79.84 Long term (current) use of oral hypoglycemic drugs; Z87.891 Personal history of nicotine dependence; G30.9 Alzheimer's disease, unspecified; F02.80 Dementia in other diseases classified elsewhere, unspecified severity, without behavioral disturbance, psychotic disturbance, mood disturbance, and anxiety; E11.9 Type 2 diabetes mellitus without complications; E78.5 Hyperlipidemia, unspecified; I10 Essential (primary) hypertension; W19.XXXA Unspecified fall, initial encounter
CPT/HCPCS: 36415; 71045; 71260; 74177; 80048; 85025; 99285; Q9967

== ENCOUNTER → 2023-12-03 10:03 | Outpatient (BNVA) | payer MEDICARE, SELFPAY | PROVIDERS: PCP Family Medicine; Visit Provider Family Medicine | DX: R06.02 Shortness of breath (principal); J06.9 Acute upper respiratory infection, unspecified | CPT/HCPCS: 71046 ==

== ENCOUNTER 2024-01-30 07:38 | Outpatient (CLI) | payer MEDICARE, SELFPAY ==
--- NOTE | 2024-01-30 07:30 | USCV_ITS ---
Nick Landen Age: 74 Gender: M : 1950 Exam Date: 01/30/2024 07:43 Ordering Phys: Anshul Torre MD Technologist: RAMILA [place] [facility] [place] HISTORY: Diameter (cm) AP x Transverse x Length Velocity (cm/s) Waveform Prox Aorta: 1.70 x 1.50 x 88.60 Triphasic Mid Aorta: 2.00 x 1.80 x 86.10 Triphasic Distal Aorta: 1.70 x 2.00 x 86.10 Triphasic Right Iliac Prox: 1.03 x 1.13 x 140.40 Biphasic Left Iliac Prox: 0.95 x 1.41 x 140.40 Biphasic Stent Prox Landing x x Aneurysmal Sac Max x x Lt Lat Sac Dim Rt Lat Sac Dim Stent Dist Landing x x Right Iliac Stent x x Left Iliac Stent x x Right Renal Art Left Renal Art FINDINGS: Comparison:. 11/16/15 A complete assessment of the abdominal aorta was not possible. Ectatic abdominal aorta with evidence of atherosclerotic plaque noted. No evidence of abdominal aortic aneurysm. There is evidence of atherosclerotic plaque no significan stenosis in the right common iliac artery. There is evidence of atherosclerotic plaque no significan stenosis in the left common iliac artery. CONCLUSIONS No change seen from prior study. Ectatic abdominal aorta with evidence of atherosclerotic plaque noted. Dr. Ayaka Solorzano DO (Electronically Signed) Final Date: 30 January 2024 08:23 S
== END 2024-01-30 07:39 | disposition home or self-care (01) ==
PROVIDERS: PCP Family Medicine; Visit Provider Family Medicine
DX: Z13.6 Encounter for screening for cardiovascular disorders (principal); I77.811 Abdominal aortic ectasia; I70.0 Atherosclerosis of aorta
CPT/HCPCS: 93978

== ENCOUNTER → 2024-04-05 15:55 | Outpatient (BNVA) | payer MEDICARE, SELFPAY | PROVIDERS: PCP Family Medicine; Visit Provider Family Medicine | DX: E11.9 Type 2 diabetes mellitus without complications (principal) | CPT/HCPCS: 80053; 80061; 83036; 85025 ==

== ENCOUNTER → 2024-10-19 09:39 | Outpatient (BNVA) | payer MEDICARE, SELFPAY | PROVIDERS: PCP Family Medicine; Visit Provider Family Medicine | DX: E11.9 Type 2 diabetes mellitus without complications (principal) | CPT/HCPCS: 80053; 83036 ==

== ENCOUNTER → 2025-03-01 09:00 | Outpatient (BNVA) | payer MEDICARE, SELFPAY | PROVIDERS: PCP Family Medicine; Visit Provider Family Medicine | DX: N40.0 Benign prostatic hyperplasia without lower urinary tract symptoms (principal); Z12.5 Encounter for screening for malignant neoplasm of prostate; E11.9 Type 2 diabetes mellitus without complications | CPT/HCPCS: 80053; 80061; 83036; 84153; 85025 ==

== ENCOUNTER → 2025-04-14 10:03 | Outpatient (BNVA) | payer MEDICARE, SELFPAY | PROVIDERS: PCP Family Medicine; Visit Provider Emergency Medicine | DX: M17.11 Unilateral primary osteoarthritis, right knee (principal) | CPT/HCPCS: 73562 ==